=== PATIENT | female | born 1975 | race Hispanic/Latino ===

== ENCOUNTER 2018-01-20 21:42 | Emergency (ER) | payer SELFPAY ==
[2018-01-20 23:04] LABS: Absolute Lymphocytes (CBC) 0.3 K/uL (0.7-4.9); Absolute Monocytes 0.2 K/uL (0.1-1.3); Absolute Neutrophil 5.9 K/uL (1.8-8.0); Basophils % 0.3 % (0-1.3); Eosinophils % 0.2 % (0-4.4); Hematocrit 40.4 % (36.0-45.0); MCH 28.3 pg (27.0-35.0); MCV 84.2 fL (80-100); MPV 8.5 fL (7.6-11.3); Monocytes % 3.5 % (3.3-12.3); RBC Red Blood Cell Count 4.81 M/uL (3.86-4.86)
[2018-01-20 23:12] LABS: Protime INR 1.04
[2018-01-20 23:23] LABS: Bicarbonate 26 mEq/L (21-31); Glucose Level 147 mg/dL (65-120); Sodium Level 136 mEq/L (135-145)
[2018-01-20 23:29] LABS: ALT/SGPT 77 IU/L (10-60); AST/SGOT 47 IU/L (10-42); Albumin 3.8 g/dL (3.2-5.5); Alkaline Phosphatase 151 IU/L (42-121); BUN Blood Urea Nitrogen 11 mg/dL (6-20); Bilirubin Direct < 0.1 mg/dL (0-0.2); Bilirubin Total 0.3 mg/dL (0.3-1.2); Creatine Phosphokinase 154 IU/L (22-269); Magnesium 1.9 mg/dL (1.8-2.5)
[2018-01-20 23:30] LABS: CKMB Creatine Kinase MB 0.4 ng/ml (0.3-4.0)
--- NOTE | 2018-01-21 00:15 | ER ---
Nurse's Notes [facility] Name: Grace Holder Age: 42 yrs Sex: Female : 1975 Arrival Date: 01/20/2018 Time: 21:45 Bed 30 Private MD: Diagnosis: Myalgia Presentation: 01/20 21:56 Presenting complaint: Patient states: hand cramps, vomiting, diarrhea started today. pt ak1 stated she was seen in ER last week given zpack and prednisone that she has not finished yet. pt PCP is in [facility]. Transition of care: patient was not received from another setting of care. Onset of symptoms was January 20, 2018. Care prior to arrival: None. 21:56 Method Of Arrival: Wheelchair ak1 21:56 Acuity: IRVIN 3 ak1 Triage Assessment: 21:57 General: Appears uncomfortable. ak1 21:59 General: Behavior is calm, cooperative. ak1 21:59 Pain: Denies pain. 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 - Social history:: Smoking status: Patient/guardian denies using tobacco. Screenin:58 Abuse screen: Denies threats or abuse. Denies injuries from another. Nutritional ak1 screening: No deficits noted. Tuberculosis screening: No symptoms or risk factors identified. Fall Risk None identified. Assessment: 22:15 General: Appears in no apparent distress. Behavior is calm, cooperative, appropriate lk1 for age. Pain: Denies pain. Neuro: Level of Consciousness is awake, alert, obeys commands, Oriented to person, place, time, situation. Cardiovascular: Capillary refill is brisk Patient's skin is warm and dry. Respiratory: Airway is patent Respiratory effort is even, unlabored, Respiratory pattern is regular, symmetrical. GI: Reports diarrhea, nausea, vomiting. : No signs and/or symptoms were reported regarding the genitourinary system. EENT: No signs and/or symptoms were reported regarding the EENT system. Derm: No signs and/or symptoms reported regarding the dermatologic system. Musculoskeletal: Swelling absent Reports cramping in hands. Vital Signs: 21:57 BP 112 / 79; Pulse 108; Resp 20; Temp 98.1; Pulse Ox 97% on R/A; Weight 69.85 kg (R); ak1 Height 5 ft. 2 in. (157.48 cm) (R); Pain 0/10; 22:30 BP 109 / 81; Pulse 95; Resp 15; Pulse Ox 100% on R/A; lk1 23:30 BP 101 / 69; Pulse 94; Resp 16; Pulse Ox 100% on R/A; Pain 0/10; lk1 01/21 00:30 BP 105 / 82; Pulse 94; Resp 16; Pulse Ox 98% on R/A; lk1 01/20 21:57 Body Mass Index 28.17 (69.85 kg, 157.48 cm) ak1 ED Course: 01/20 21:45 Patient arrived in ED. es 21:57 Triage completed. ak1 21:57 Arm band placed on Patient placed in an exam room, on a stretcher, on pulse oximetry, ak1 Patient notified of wait time. 21:58 Patient has correct armband on for positive identification. Bed in low position. Call ak1 light in reach. Side rails up X 1. Adult w/ patient. Pulse ox on. NIBP on. 22:06 Rojas Hartmann MD is Attending Physician. tw4 22:35 Radha Bernal, LEVY is Primary Nurse. lk1 22:50 EKG done, by ED staff, reviewed by Rojas Hartmann MD. 3 22:55 Initial lab(s) drawn, by tn, sent to lab. Inserted saline lock: 20 gauge in right dh3 antecubital area, using aseptic technique. Blood collected. 23:53 X-ray completed. Portable x-ray completed in exam room. Patient tolerated procedure kw well. 23:54 Chest Single View XRAY In Process Unspecified. EDMS 01/21 00:51 No provider procedures requiring assistance completed. Patient did not have IV access lk1 during this emergency room visit. Administered Medications: No medications were administered Outcome: 00:14 Discharge ordered by . tw4 00:51 Discharged to home ambulatory, with significant other. lk1 00:51 Condition: good 00:51 Discharge instructions given to patient, significant other, Instructed on discharge instructions, follow up and referral plans. medication usage, safety practices, Demonstrated understanding of instructions, follow-up care, medications, Prescriptions given X 1. 00:53 Patient left the ED. lk1 Signatures: Dispatcher [employer] EDLinda Han Felicia, RN RN Meenakshi Remy Amber RN RN aga1 Radha Bernal RN RN lk1 Maddie Sharma counts include 234 beds at the [facility] Rojas Hartmann MD MD tw4
--- NOTE | 2018-01-21 00:15 | EDPHYS ---
Physician Documentation [facility] Name: Grace Holder Age: 42 yrs Sex: Female : 1975 Arrival Date: 01/20/2018 Time: 21:45 Bed 30 Private MD: ED Physician Rojas Hartmann HPI: 01/20 23:42 This 42 yrs old Female presents to ER via Wheelchair with complaints of tw4 SICK,DIFFICULTY BREATHING. 23:42 pt states that her muscles ache. Onset: The symptoms/episode began/occurred today. tw4 Severity of symptoms: At their worst the symptoms were moderate in the emergency department the symptoms have improved. The patient has not experienced similar symptoms in the past. 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 - Social history:: Smoking status: Patient/guardian denies using tobacco. ROS: 23:42 Constitutional: Negative for fever, chills, and weight loss, Cardiovascular: Negative tw4 for chest pain, palpitations, and edema, Abdomen/GI: Negative for abdominal pain, nausea, vomiting, diarrhea, and constipation, Back: Negative for injury and pain, MS/Extremity: Negative for injury and deformity, Skin: Negative for injury, rash, and discoloration. 23:42 Respiratory: Positive for cough, shortness of breath, wheezing. Exam: 23:42 Constitutional: This is a well developed, well nourished patient who is awake, alert, tw4 and in no acute distress. Head/Face: Normocephalic, atraumatic. Chest/axilla: Normal chest wall appearance and motion. Nontender with no deformity. No lesions are appreciated. Cardiovascular: Regular rate and rhythm with a normal S1 and S2. No gallops, murmurs, or rubs. Normal PMI, no JVD. No pulse deficits. Respiratory: Lungs have equal breath sounds bilaterally, clear to auscultation and percussion. No rales, rhonchi or wheezes noted. No increased work of breathing, no retractions or nasal flaring. Abdomen/GI: Soft, non-tender, with normal bowel sounds. No distension or tympany. No guarding or rebound. No evidence of tenderness throughout. Back: No spinal tenderness. No costovertebral tenderness. Full range of motion. MS/ Extremity: Pulses equal, no cyanosis. Neurovascular intact. Full, normal range of motion. Neuro: Awake and alert, GCS 15, oriented to person, place, time, and situation. Cranial nerves II-XII grossly intact. Motor strength 5/5 in all extremities. Sensory grossly intact. Cerebellar exam normal. Normal gait. Vital Signs: 21:57 BP 112 / 79; Pulse 108; Resp 20; Temp 98.1; Pulse Ox 97% on R/A; Weight 69.85 kg (R); ak1 Height 5 ft. 2 in. (157.48 cm) (R); Pain 0/10; 22:30 BP 109 / 81; Pulse 95; Resp 15; Pulse Ox 100% on R/A; lk1 23:30 BP 101 / 69; Pulse 94; Resp 16; Pulse Ox 100% on R/A; Pain 0/10; lk1 01/21 00:30 BP 105 / 82; Pulse 94; Resp 16; Pulse Ox 98% on R/A; lk1 01/20 21:57 Body Mass Index 28.17 (69.85 kg, 157.48 cm) ak1 MDM: 01/20 22:06 Patient medically screened. tw4 01/21 00:15 Differential Diagnosis flu. Data reviewed: vital signs, nurses notes. Test tw4 interpretation: by ED physician or midlevel provider: plain radiologic studies. Counseling: I had a detailed discussion with the patient and/or guardian regarding: the historical points, exam findings, and any diagnostic results supporting the discharge/admit diagnosis. Special discussion: I discussed with the patient/guardian in detail that at this point there is no indication for admission to the hospital. It is understood, however, that if the symptoms persist or worsen the patient needs to return immediately for re-evaluation. 01/20 22:20 Order name: Basic Metabolic Panel; Complete Time: 23:37 4 01/20 23:37 Interpretation: Normal except: GLUC 147; GFR 79. 01/20 22:20 Order name: BNP; Complete Time: 23:37 01/20 22:20 Order name: CBC with Diff 01/20 23:37 Interpretation: Normal except: MARY% 91.0; LYM% 5.0. 01/20 22:20 Order name: Ckmb; Complete Time: 23:37 01/20 23:38 Interpretation: Abnormal. 01/20 22:20 Order name: CPK; Complete Time: 23:37 01/20 22:20 Order name: LFT's; Complete Time: 23:37 01/20 23:37 Interpretation: Normal except: A/G 0.9; GLOB 4.2; SGOT 47; SGPT 77; ALK 151. 01/20 22:20 Order name: Magnesium; Complete Time: 23:37 01/20 22:20 Order name: PT-INR; Complete Time: 23:37 01/20 22:20 Order name: Ptt, Activated; Complete Time: 23:37 01/20 22:20 Order name: Troponin (emerg Dept Use Only); Complete Time: 23:37 01/20 22:20 Order name: EKG; Complete Time: 22:20 01/20 22:20 Order name: Calcium 01/20 22:20 Order name: Albumin 01/20 23:40 Order name: Chest Single View XRAY 01/20 22:20 Order name: Cardiac monitoring; Complete Time: 22:59 01/20 22:20 Order name: EKG - Nurse/Tech; Complete Time: 22:58 01/20 22:20 Order name: IV Saline Lock; Complete Time: 22:58 01/20 22:20 Order name: Labs collected and sent; Complete Time: 22:59 01/20 22:20 Order name: O2 Per Protocol; Complete Time: 22:59 01/20 22:20 Order name: O2 Sat Monitoring; Complete Time: 22:59 tw4 Administered Medications: No medications were administered Disposition: 01/21/18 00:14 Discharged to Home. Impression: Myalgia. - Condition is Stable. - Discharge Instructions: Musculoskeletal Pain, Muscle Pain, Adult, Pain Without a Known Cause. - Prescriptions for Ibuprofen 800 mg Oral Tablet - take 1 tablet by ORAL route every 8 hours As needed take with food; 30 tablet. - Medication Reconciliation Form, Thank You Letter, Antibiotic Education, Prescription Opioid Use form. - Follow up: Private Physician; When: As needed; Reason: Recheck today's complaints, Continuance of care, Re-evaluation by your physician. - Problem is new. - Symptoms have improved. Signatures: Dispatcher [employer] EDCT Jaymie Bocanegra RN RN fc Ania Reilly RN RN ak1 Radha Bernal RN RN lk1 Rojas Hartmann MD MD tw4
[2018-01-21 01:16] LABS: Blood Morphology Comment NOT SEEN (NOT SEEN); Platelet Estimate ADEQ; Urine White Blood Cell Casts OK
--- NOTE | 2018-01-21 06:28 | EKG ---
Test Date: 2018-01-20 Test Time: 22:41:20 Systems Support Specialist: MORA MEASUREMENT RESULTS: Intervals: Rate: 97 ID: [id number] QRSD: 70 QT: 342 QTc: 434 [place]: P: 50 ID: [id number] QRS: 57 T: 73 INTERPRETIVE STATEMENTS: Normal sinus rhythm Normal ECG No previous ECG available for comparison Electronically Signed On 01-21-18 06:28:09 CDT by Harrison Ferguson
--- NOTE | 2018-01-21 08:50 | RAD REPORT ---
EXAM DESCRIPTION: Armando Single View01/20/2018 11:56 pm CLINICAL HISTORY: Chest pain COMPARISON: December 2017 FINDINGS: Mild opacities within the upper lobes appear unchanged. The remainder of the lungs appear clear of acute infiltrate. The heart is normal size IMPRESSION: Mild apical opacities within the upper lobes are unchanged which may represent pneumonia or atelectasis
== END 2018-01-21 00:53 | disposition home or self-care (01) ==
LOC: ER 21:42
DX: M79.1 Myalgia (principal); E03.9 Hypothyroidism, unspecified; Z85.850 Personal history of malignant neoplasm of thyroid
CPT/HCPCS: 36415; 71045; 80048; 80076; 82550; 82553; 83735; 83880; 84484; 85025; 85610; 85730; 93005; 99284

== ENCOUNTER 2018-07-15 04:37 | Observation (INO) | payer SELFPAY ==
[2018-07-15] MEDS ORDERED: MORPHINE 4 MG/ML SYR ONE (05:31)
[2018-07-15] MEDS ORDERED: NA CHLORIDE 0.9% 1,000 ML ONE (05:31)
[2018-07-15] MEDS ORDERED: FAMOTIDINE 20 MG/2 ML VIAL IV ONE (05:31)
[2018-07-15] MEDS ORDERED: ONDANSETRON 4 MG/2 ML VIAL ONE (05:31)
[2018-07-15 05:33] LABS: Absolute Lymphocytes (CBC) 1.6 K/uL (0.7-4.9); Absolute Monocytes 0.5 K/uL (0.1-1.3); Absolute Neutrophil 4.7 K/uL (1.8-8.0); Basophils % 0.7 % (0-1.3); Eosinophils % 3.9 % (0-4.4); Hematocrit 40.4 % (36.0-45.0); Lymphocytes % 22.9 % (15.3-44.8); MCH 29.2 pg (27.0-35.0); MCV 84.8 fL (80-100); Monocytes % 6.7 % (3.3-12.3); RBC Red Blood Cell Count 4.76 M/uL (3.86-4.86)
[2018-07-15 05:34] LABS: Protime INR 0.97
[2018-07-15 05:53] LABS: ALT/SGPT 28 U/L (12-78); AST/SGOT 19 U/L (15-37); Albumin 3.4 g/dL (3.4-5.0); Alkaline Phosphatase 94 U/L (45-117); BUN Blood Urea Nitrogen 12 mg/dL (7-18); Bicarbonate 24 mmol/L (21-32); Bilirubin Direct 0.1 mg/dL (0-0.2); Bilirubin Total 0.3 mg/dL (0.2-1.0); Glucose Level 102 mg/dL (74-106); Lipase 291 U/L (73-393); Magnesium 1.9 mg/dL (1.8-2.4); NT PRO-BNP 55 pg/mL (<125); Potassium 3.6 mmol/L (3.5-5.1); Protein, Total 7.4 g/dL (6.4-8.2); Sodium Level 141 mmol/L (136-145); Troponin (Emerg Dept Use Only) < 0.02 ng/mL (0.0-0.045)
[2018-07-15] MEDS ORDERED: CALCIUM GLUCONATE 1 GM IVPB 1 GM/50 ML BAG IV ONE ×2 (06:23→21:15)
[2018-07-15] MEDS ORDERED: NA CHLORIDE 0.9% 100 ML IV ONE (06:28)
--- NOTE | 2018-07-15 06:40 | EKG ---
Test Date: 2018-07-15 Test Time: 05:27:09 Case Finisher: COLEEN MEASUREMENT RESULTS: Intervals: Rate: 65 [place]: 128 QRSD: 70 QT: 434 QTc: 451 [place]: P: 12 [place]: 128 QRS: 53 T: 70 INTERPRETIVE STATEMENTS: Normal sinus rhythm Low voltage QRS Borderline ECG Compared to ECG 01/20/2018 22:41:20 Low QRS voltage now present Electronically Signed On 07-15-18 06:40:20 CDT by Harrison Ferguson
--- NOTE | 2018-07-15 07:09 | EDPHYS ---
Physician Documentation [facility] Name: Grace Holder Age: 43 yrs Sex: Female : 1975 Arrival Date: 07/15/2018 Time: 04:38 Bed 16 Private MD: ED Physician Keanu Willingham HPI: 07/15 04:57 This 43 yrs old Female presents to ER via Unassigned with complaints of ramón Shortness Of Breath. 04:58 This 43 yrs old Female presents to ER via Ambulatory with complaints of ramón Shortness Of Breath. 04:58 The patient has shortness of breath at rest. Onset: The symptoms/episode began/occurred ramón just prior to arrival, this morning. Duration: The symptoms are continuous, and are unchanged since they started. The patient's shortness of breath has no apparent modifying factors. Associated signs and symptoms: The patient has no apparent associated signs or symptoms. Severity of symptoms: At their worst the symptoms were moderate. The patient has not experienced similar symptoms in the past. 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 - Social history:: Smoking status: Patient/guardian denies using tobacco. - Ebola Screening: : No symptoms or risks identified at this time. ROS: 05:01 Constitutional: Negative for fever, chills, and weight loss, Eyes: Negative for injury, ramón pain, redness, and discharge, ENT: Negative for injury, pain, and discharge, Neck: Negative for injury, pain, and swelling, Cardiovascular: Negative for chest pain, palpitations, and edema, Abdomen/GI: Negative for abdominal pain, nausea, vomiting, diarrhea, and constipation, : Negative for injury, bleeding, discharge, and swelling, MS/Extremity: Negative for injury and deformity, Skin: Negative for injury, rash, and discoloration, Neuro: Negative for headache, weakness, numbness, tingling, and seizure, Psych: Negative for depression, anxiety, suicide ideation, homicidal ideation, and hallucinations, Allergy/Immunology: Negative for hives, rash, and allergies, Endocrine: Negative for neck swelling, polydipsia, polyuria, polyphagia, and marked weight changes, Hematologic/Lymphatic: Negative for swollen nodes, abnormal bleeding, and unusual bruising. 05:01 Respiratory: Positive for cough, shortness of breath. 05:01 Back: Positive for pain with movement. Exam: 05:01 Constitutional: This is a well developed, well nourished patient who is awake, alert, ramón and in no acute distress. Head/Face: Normocephalic, atraumatic. Eyes: Pupils equal round and reactive to light, extra-ocular motions intact. Lids and lashes normal. Conjunctiva and sclera are non-icteric and not injected. Cornea within normal limits. Periorbital areas with no swelling, redness, or edema. ENT: Nares patent. No nasal discharge, no septal abnormalities noted. Tympanic membranes are normal and external auditory canals are clear. Oropharynx with no redness, swelling, or masses, exudates, or evidence of obstruction, uvula midline. Mucous membranes moist. Neck: Trachea midline, no thyromegaly or masses palpated, and no cervical lymphadenopathy. Supple, full range of motion without nuchal rigidity, or vertebral point tenderness. No Meningismus. Chest/axilla: Normal chest wall appearance and motion. Nontender with no deformity. No lesions are appreciated. Cardiovascular: Regular rate and rhythm with a normal S1 and S2. No gallops, murmurs, or rubs. Normal PMI, no JVD. No pulse deficits. Respiratory: Lungs have equal breath sounds bilaterally, clear to auscultation and percussion. No rales, rhonchi or wheezes noted. No increased work of breathing, no retractions or nasal flaring. Abdomen/GI: Soft, non-tender, with normal bowel sounds. No distension or tympany. No guarding or rebound. No evidence of tenderness throughout. Back: No spinal tenderness. No costovertebral tenderness. Full range of motion. Skin: Warm, dry with normal turgor. Normal color with no rashes, no lesions, and no evidence of cellulitis. MS/ Extremity: Pulses equal, no cyanosis. Neurovascular intact. Full, normal range of motion. Neuro: Awake and alert, GCS 15, oriented to person, place, time, and situation. Cranial nerves II-XII grossly intact. Motor strength 5/5 in all extremities. Sensory grossly intact. Cerebellar exam normal. Normal gait. Psych: Awake, alert, with orientation to person, place and time. Behavior, mood, and affect are within normal limits. 05:01 Musculoskeletal/extremity: DVT Exam: No signs of deep vein thrombosis. no pain, no swelling, no tenderness, negative Homans' sign noted on exam, no appreciated bluish discoloration, no erythema, no increased warmth. Vital Signs: 04:56 BP 136 / 69; Pulse 77; Resp 20; Temp 98.5(O); Pulse Ox 100% on R/A; Weight 72.57 kg; lp1 Height 5 ft. 2 in. (157.48 cm); Pain 8/10; 06:02 BP 124 / 73; Pulse 60; Resp 18; Pulse Ox 100% on R/A; jb4 06:53 BP 110 / 73; Pulse 68; Resp 15; Pulse Ox 100% ; jb4 08:00 BP 118 / 72; Pulse 63; Resp 17; Pulse Ox 100% on R/A; tw2 04:56 Body Mass Index 29.26 (72.57 kg, 157.48 cm) lp1 MDM: 04:43 Patient medically screened. [facility] 05:02 Data reviewed: vital signs, nurses notes, lab test result(s), EKG, radiologic studies, [facility] CT scan, plain films. 07/15 04:57 Order name: Basic Metabolic Panel; Complete Time: 06:00 [facility] 07/15 04:57 Order name: CBC with Diff; Complete Time: 06:00 [facility] 07/15 04:57 Order name: LFT's; Complete Time: 06:00 [facility] 07/15 04:57 Order name: Magnesium; Complete Time: 06:00 [facility] 07/15 04:57 Order name: NT PRO-BNP; Complete Time: 06:00 [facility] 07/15 04:57 Order name: PT-INR; Complete Time: 06:00 [facility] 07/15 04:57 Order name: Troponin (emerg Dept Use Only); Complete Time: 06:00 [facility] 07/15 04:57 Order name: Lipase; Complete Time: 06:00 [facility] 07/15 04:57 Order name: Blood Culture Adult (2) [facility] 07/15 05:02 Order name: TSH; Complete Time: 06:00 [facility] 07/15 06:23 Order name: Urine Dipstick--Ancillary (enter results) ms 07/15 06:24 Order name: Urine --Ancillary (enter results) ms 07/15 07:15 Order name: Basic Metabolic Panel EDMS 07/15 07:15 Order name: Basic Metabolic Panel EDMS 07/15 04:57 Order name: XRAY Chest (1 view) [facility] 07/15 04:57 Order name: EKG; Complete Time: 04:58 [facility] 07/15 04:57 Order name: Cardiac monitoring; Complete Time: 05:21 [facility] 07/15 04:57 Order name: EKG - Nurse/Tech; Complete Time: 05:34 [facility] 07/15 04:57 Order name: IV Saline Lock; Complete Time: 05:21 ramón 07/15 04:57 Order name: Labs collected and sent; Complete Time: 05:22 [facility] 07/15 04:57 Order name: CT Aorta for Dissection [facility] 07/15 07:07 Order name: US Abdomen Limited [facility] 07/15 07:16 Order name: NPO; Complete Time: 07:17 [facility]SC 07/15 04:57 Order name: O2 Per Protocol; Complete Time: 05:21 [facility] 07/15 04:57 Order name: O2 Sat Monitoring; Complete Time: 05:21 [facility] 07/15 04:58 Order name: Urine Dipstick-Ancillary (obtain specimen); Complete Time: 06:22 [facility] 07/15 04:58 Order name: Urine Test (obtain specimen); Complete Time: 06:22 [facility] Administered Medications: 05:38 Drug: Zofran 4 mg Route: IVP; Site: right forearm; jb4 06:00 Follow up: Response: No adverse reaction cc3 06:47 Follow up: Response: No adverse reaction; Vomiting decreased jb4 05:40 Drug: morphine 2 mg Route: IVP; Site: right forearm; jb4 06:45 Follow up: Response: No adverse reaction; Pain is decreased jb4 05:41 Drug: NS 0.9% 1000 ml Route: IV; Rate: 1 bolus; Site: right forearm; jb4 05:41 Drug: Pepcid 20 mg Route: IVP; Site: right forearm; jb4 06:00 Follow up: Response: No adverse reaction cc3 06:43 Follow up: Response: No adverse reaction jb4 05:54 Drug: morphine 2 mg Route: IVP; Site: right forearm; jb4 06:46 Follow up: Response: No adverse reaction; Pain is decreased jb4 06:48 Drug: Calcium Gluconate 1 grams Route: IVPB; Infused Over: 60 mins; Site: right forearm;jb4 07:52 Follow up: Response: No adverse reaction; IV Status: Completed infusion tw2 07:25 Drug: Zosyn 3.375 grams Route: IVPB; Infused Over: 60 mins; Site: right forearm; 08:25 Follow up: Response: No adverse reaction; IV Status: Completed infusion tw2 Disposition: 07/15/18 07:08 Hospitalization ordered by Jose Cuenca for Observation. Preliminary diagnosis are Cholelithiasis, Cholecystitis. - Bed requested for Telemetry/MedSurg (observation). - Status is Observation. tw2 - Condition is Stable. - Problem is new. - Symptoms have improved. UTI on Admission? No Signatures: Dispatcher [employer] EDMS Keanu Willingham MD MD cha Pena, Laura, RN RN lp1 Geovanni Hammer RN LEVY Nandini Espino RN RN tw2 Beto Rodriguez RN RN jb4 Mary Alvarenga cc3 Corrections: (The following items were deleted from the chart) 08:29 07:08 Hospitalization Ordered by Jose Cuenca MD for Observation. Preliminary diagnosis tw2 is Cholelithiasis; Cholecystitis. Bed requested for Telemetry/MedSurg (observation). Status is Observation. Condition is Stable. Problem is new. Symptoms have improved. UTI on Admission? No. ramón
--- NOTE | 2018-07-15 07:09 | ER ---
Nurse's Notes [facility] Name: Grace Holder Age: 43 yrs Sex: Female : 1975 Arrival Date: 07/15/2018 Time: 04:38 Bed 16 Private MD: Diagnosis: Cholelithiasis;Cholecystitis Presentation: 07/15 04:57 Presenting complaint: Patient states: Shortness of breath since 0200; Pain to upper mid lp1 back, pain increased with respiration. Transition of care: patient was not received from another setting of care. Onset of symptoms was July 15, 2018 at 02:00. Risk Assessment: Do you want to hurt yourself or someone else? Patient reports no desire to harm self or others. Initial Sepsis Screen: Does the patient meet any 2 criteria? No. Patient's initial sepsis screen is negative. Does the patient have a suspected source of infection? No. Patient's initial sepsis screen is negative. Care prior to arrival: None. 04:57 Method Of Arrival: Ambulatory lp1 04:57 Acuity: IRVIN 3 lp1 CLINICAL PSYCHOLOGIST LICENSED: 04:56 LMP N/A - Irregular menses lp1 Historical: - Allergies: 04:59 No Known Allergies; lp1 - Home Meds: 04:59 calcitriol 0.5 mcg Oral cap 1 cap once daily [Active]; calcium carbonate 500 mg calcium lp1 (1,250 mg) Oral chew 1000 mg three times a day [Active]; - PMHx: 04:59 Hypothyroidism; THYROID CANCER; lp1 - PSHx: 04:59 Thyroidectomy; parathyroid removal; ; lp1 - Immunization history:: Adult Immunizations up to date. - Social history:: Smoking status: Patient/guardian denies using tobacco. - Ebola Screening: : No symptoms or risks identified at this time. Screenin:01 Abuse screen: Denies threats or abuse. Denies injuries from another. Nutritional lp1 screening: No deficits noted. Tuberculosis screening: No symptoms or risk factors identified. Fall Risk None identified. Assessment: 05:00 General: Appears in no apparent distress. uncomfortable, Behavior is calm, cooperative, jb4 appropriate for age. Pain: Complains of pain in chest Pain radiates to thoracic area and anterior aspect of left shoulder. Neuro: Level of Consciousness is awake, alert, obeys commands, Oriented to person, place, time, situation. Cardiovascular: Heart tones S1 S2 present Patient's skin is warm and dry. Rhythm is sinus rhythm. Respiratory: Airway is patent Respiratory effort is even, unlabored, Respiratory pattern is regular, symmetrical, Breath sounds are clear bilaterally. GI: Reports nausea, vomiting. : No signs and/or symptoms were reported regarding the genitourinary system. EENT: No signs and/or symptoms were reported regarding the EENT system. Derm: Skin is intact, Skin is pink, warm \T\ dry. Musculoskeletal: Circulation, motion, and sensation intact. 06:02 Reassessment: Patient appears in no apparent distress at this time. Patient and/or jb4 family updated on plan of care and expected duration. Pain level reassessed. Patient is alert, oriented x 3, equal unlabored respirations, skin warm/dry/pink. at the bedside. pt resting with eyes closed. appears to be more comfortable. 06:53 Reassessment: Patient appears in no apparent distress at this time. Patient and/or jb4 family updated on plan of care and expected duration. Pain level reassessed. Patient is alert, oriented x 3, equal unlabored respirations, skin warm/dry/pink. Pt is back from CT. 07:33 Reassessment: Patient appears in no apparent distress at this time. Patient and/or tw2 family updated on plan of care and expected duration. Pain level reassessed. Patient is alert, oriented x 3, equal unlabored respirations, skin warm/dry/pink. 07:33 Reassessment: US at bedside at this time. tw2 Vital Signs: 04:56 BP 136 / 69; Pulse 77; Resp 20; Temp 98.5(O); Pulse Ox 100% on R/A; Weight 72.57 kg; lp1 Height 5 ft. 2 in. (157.48 cm); Pain 8/10; 06:02 BP 124 / 73; Pulse 60; Resp 18; Pulse Ox 100% on R/A; jb4 06:53 BP 110 / 73; Pulse 68; Resp 15; Pulse Ox 100% ; jb4 08:00 BP 118 / 72; Pulse 63; Resp 17; Pulse Ox 100% on R/A; tw2 04:56 Body Mass Index 29.26 (72.57 kg, 157.48 cm) lp1 ED Course: 04:38 Patient arrived in ED. ds1 04:43 Keanu Willingham MD is Attending Physician. ramón 04:56 Missed attempt(s): 20 gauge in left antecubital area. Missed attempt(s): 22 gauge in lp1 left forearm. 04:57 Arm band placed on left wrist. lp1 04:58 Triage completed. lp1 05:00 Initial lab(s) drawn, by me, sent to lab. Inserted saline lock: 22 gauge in right jb4 forearm, using aseptic technique. Blood collected. Missed attempt(s): 22 gauge in right forearm. 05:00 Patient has correct armband on for positive identification. Placed in gown. Bed in low jb4 position. Call light in reach. Side rails up X 1. personnel monitor on. Pulse ox on. NIBP on. 05:24 X-ray completed. Portable x-ray completed in exam room. Patient tolerated procedure kw well. 05:25 XRAY Chest (1 view) In Process Unspecified. EDMS 05:30 Radiology exam delayed due to lab results not completed at this time. (HCG) kw1 (BUN/Creatinine). 05:32 Beto Rodriguez, RN is Primary Nurse. jb4 05:46 Radiology exam delayed due to lab results not completed at this time. (HCG) kw1 (BUN/Creatinine). 05:54 Notified ED physician of a critical lab result(s). calcium of 6.9. fc 05:56 Radiology exam delayed due to lab results not completed at this time. (HCG). kw1 06:17 Radiology exam delayed due to test not completed at this time. kw1 06:[address] via wheelchair. kw1 06:41 CT Aorta for Dissection In Process Unspecified. EDMS 06:43 CT completed. Patient tolerated procedure well. Patient moved back from CT. kw1 07:08 Jose Cuenca MD is Hospitalizing Provider. ramón 07:33 Primary Nurse role handed off by Beto Rodriguez, RN tw2 07:33 Nandini Espino RN is Primary Nurse. tw2 07:39 Ultrasound completed. Patient tolerated well. aa4 08:28 No provider procedures requiring assistance completed. Patient admitted, IV remains in tw2 place. Administered Medications: 05:38 Drug: Zofran 4 mg Route: IVP; Site: right forearm; jb4 06:00 Follow up: Response: No adverse reaction cc3 06:47 Follow up: Response: No adverse reaction; Vomiting decreased jb4 05:40 Drug: morphine 2 mg Route: IVP; Site: right forearm; jb4 06:45 Follow up: Response: No adverse reaction; Pain is decreased jb4 05:41 Drug: NS 0.9% 1000 ml Route: IV; Rate: 1 bolus; Site: right forearm; jb4 05:41 Drug: Pepcid 20 mg Route: IVP; Site: right forearm; jb4 06:00 Follow up: Response: No adverse reaction cc3 06:43 Follow up: Response: No adverse reaction jb4 05:54 Drug: morphine 2 mg Route: IVP; Site: right forearm; jb4 06:46 Follow up: Response: No adverse reaction; Pain is decreased jb4 06:48 Drug: Calcium Gluconate 1 grams Route: IVPB; Infused Over: 60 mins; Site: right forearm;jb4 07:52 Follow up: Response: No adverse reaction; IV Status: Completed infusion tw2 07:25 Drug: Zosyn 3.375 grams Route: IVPB; Infused Over: 60 mins; Site: right forearm; hj 08:25 Follow up: Response: No adverse reaction; IV Status: Completed infusion tw2 Outcome: 07:08 Decision to Hospitalize by Provider. ramón 08:28 Admitted to OR accompanied by nurse, via stretcher, Report called to LEVY Mota tw2 08:28 Condition: stable 08:28 Instructed on the need for admit. 08:29 Patient left the ED. tw2 Signatures: Dispatcher [employer] EDKeanu Doe MD MD cha Chretien, Felicia, RN Ciarra Abreu ds1 Abigail Gillespie aa4 Meenakshi Patterson Laura, RN RN lp1 Geovanni Hammer RN RN hj Wise, Tara, RN RN tw2 Beto Rodriguez RN RN jb4 Shena Key kw1 Mary Alvarenga cc3 Corrections: (The following items were deleted from the chart) 06:48 06:44 Response: No adverse reaction; Pain is decreased jb4 jb4
[2018-07-15] MEDS ORDERED: ACETAMINOPHEN 500 MG TAB PO PRN (07:11)
[2018-07-15] MEDS ORDERED: ONDANSETRON 4 MG/2 ML VIAL IV PRN (07:11)
[2018-07-15] MEDS ORDERED: MORPHINE 4 MG/ML SYR IV PRN (07:14)
[2018-07-15] MEDS ORDERED: PIPER/TAZO/NS 3.375gm 3.375 GM/100 ML BAG ONE (07:26)
[2018-07-15] MEDS ORDERED: D5 0.45 NS 1,000 ML IV SCH (08:00)
[2018-07-15] MEDS ORDERED: ONDANSETRON HCL 40 MG/20 ML VIAL ONE (08:25)
[2018-07-15] MEDS ORDERED: MIDAZOLAM HCL 2 MG/2 ML INJ ONE (08:25)
[2018-07-15] MEDS ORDERED: FENTANYL CITR 250 MCG/5 ML ONE (08:25)
[2018-07-15] MEDS ORDERED: PROPOFOL 200 MG/20 ML VIAL IV ONE (08:25)
[2018-07-15] MEDS ORDERED: ROCURONIUM 50 MG/5 ML VIAL IV ONE (08:25)
[2018-07-15] MEDS ORDERED: LIDOCAINE 2% MPF 5 ML VIAL ONE (08:25)
[2018-07-15] MEDS ORDERED: FAMOTIDINE 20 MG/2 ML VIAL IV SCH ×2 (09:00→21:00)
[2018-07-15] MEDS ORDERED: Ringers Lactate 1,000 ML IV ONE ×2 (09:00→10:35)
[2018-07-15 09:09] LABS: Urine Specific Gravity 1.005 (1.005-1.030)
[2018-07-15 09:09] LABS: Urine Blood TRACE (NEG); Urine Glucose NEGATIVE (NEG); Urine Protein NEGATIVE (NEG); Urine Specific Gravity 1.005 (1.005-1.030)
--- NOTE | 2018-07-15 09:12 | RAD REPORT ---
EXAM DESCRIPTION: RAD - Chest Single View - 07/15/2018 5:25 am CLINICAL HISTORY: DYSPNEA Chest pain. COMPARISON: Chest Single View dated 01/20/2018; Chest Pa And Lat (2 Views) dated 12/27/2017 FINDINGS: Portable technique limits examination quality. The lungs are grossly clear. The heart is normal in size. No displaced fractures. IMPRESSION: No acute intrathoracic process suspected.
--- NOTE | 2018-07-15 09:14 | RAD REPORT ---
EXAM DESCRIPTION: CT - Angio Aorta For Dissection - 07/15/2018 6:40 am CLINICAL HISTORY: Chest pain radiating to the back. Chest pain;Dyspnea;Pain COMPARISON: Thorax W/ Con dated 12/27/2017 TECHNIQUE: CT angiography of the aorta was performed with MIPs. All CT scans are performed using dose optimization technique as appropriate and may include automated exposure control or mA/KV adjustment according to patient size. FINDINGS: A left aortic arch is present with normal branching pattern of the great vessels.No acute aortic finding is seen such as aneurysm, penetrating ulcer or dissection. The celiac axis, SMA, KIARRA and renal arteries are widely patent. Small accessory right renal artery. No evidence of pulmonary embolism. Linear scarring is present in both lung apices with mosaic perfusion pattern seen in the lungs sugges ting small airway or small vessel disease. No lobar consolidation typical of bacterial pneumonia. The liver demonstrates no focal mass or biliary dilatation.Large gallstones are present in the gallbl adder.The spleen, pancreas, adrenal glands and kidneys are within normal limits for arterial phase im aging. No bowel obstruction, free fluid or abscess.No pathologic enlarged lymphadenopathy identified. No fracture or worrisome bone lesion seen. IMPRESSION: No acute aortic finding is demonstrated. Cholelithiasis. Mosaic appearance to the lungs often is seen in small airway or small vessel disease.
--- NOTE | 2018-07-15 09:18 | RAD REPORT ---
EXAM DESCRIPTION: US - Abdomen Exam Limited - 07/15/2018 7:43 am CLINICAL HISTORY: ABD PAIN COMPARISON: No comparisons FINDINGS: The gallbladder demonstrates multiple shadowing gallstones. No pericholecystic fluid. Gall bladder wall is upper limit normal measuring 4 mm. The common bile duct is normal measuring 7 mm. The liver demonstrates no findings of intrahepatic biliary dilatation. IMPRESSION: Cholelithiasis.
[2018-07-15] MEDS ORDERED: GLYCOPYRROLATE 0.2 MG/ML SYR ONE (10:38)
[2018-07-15] MEDS ORDERED: KETOROLAC 30 MG/ML INJ ONE (10:38)
[2018-07-15] MEDS ORDERED: NEOSTIGMINE 1 MG/ML -5 ML SYRINGE ONE (10:41)
--- NOTE | 2018-07-15 10:43 | P.OP ---
Sammying Machine Operator: Roberto DE SANTIAGO Preoperative diagnosis: Acute Cholecystitis and Cholelithiasis Postoperative diagnosis: same Primary procedure: Lap Latosha Anesthesia: General Estimated blood loss: min Specimen: gb Findings: as above Complications: None Transferred to: Recovery Room Condition: Good
[2018-07-15] MEDS ORDERED: Mastisol Adhesive Liq ONE (10:52)
[2018-07-15] MEDS ORDERED: HYDROMORPHONE HCL 1 MG/ML INJ IV PRN (11:06)
[2018-07-15] MEDS: Ringers Lactate 1,000 ML IV SCH ×2 (11:06→21:21)
[2018-07-15] MEDS: MEPERIDINE HCL 50 MG/ML AMP ONE ×2 (11:10→11:15)
[2018-07-15] MEDS: ONDANSETRON 4 MG/2 ML VIAL IV PRN ×2 (12:01→19:05)
--- NOTE | 2018-07-15 13:46 | PREOPHP ---
Date of Admission: 07/15/2018 Reason: Back pain. History Of Present Illness: The patient is a 43-year-old female who comes in with acute onset of sev ere back pain associated with nausea and vomiting, in between her shoulder blades. No bloating belch ing or heartburn. No sore throat, runny nose, cough, headaches, or dizziness. No chest pain. No fe billie or chills. No diarrhea or constipation. No blood in her stool. No dysuria or hematuria. Revie w of systems is otherwise unremarkable. She has had pain postprandial in first episode. Review of Systems: Otherwise unremarkable. Past Medical History: History of thyroid cancer and hypothyroidism. Past Surgical History: Thyroidectomy and parathyroidectomy. Medications: Please note, the patient is on Synthroid and calcium supplements. Allergies: NO ALLERGIES. Social History: She denies smoking or drinking. Family History: Negative. Physical Examination: Vital Signs: Stable. She is afebrile. General: She is awake, alert, and oriented x3. Head and Neck: No evidence of icterus. Cranial nerves 2 through 12 are grossly within normal limits . No neck masses. No JVD. Throat clear. Neck is supple. Chest: Clear. Heart: S1, S2. Abdomen: Soft, nondistended. Positive bowel sounds. Minimal tenderness in the right upper quadrant . No peritonitis. Extremity: Adequately perfused. Nontender. Neuro: Nonfocal. Laboratory Data: White count, LFT, amylase, and lipase are within normal limits. Ultrasound shows m ulti-stone cholelithiasis with slight thickening of the gallbladder wall. Common bile duct is within normal limits. Assessment: Acute cholecystitis and cholelithiasis. Plan: Admit, n.p.o., IV fluid, IV antibiotic, to the OR for lap choly, possible open. The patient u nderstands the risks, benefits, and alternatives and agrees to the procedure. /MODL Voice ID: [id number]
[2018-07-15] MEDS ORDERED: INFLUENZA VACCINE (for 3y+) 0.5 ML DOSE IMVAC ONE (14:00)
[2018-07-15] MEDS: HYDROCODONE/APAP 7.5/325 MG TAB PO PRN ×2 (14:09→19:05)
[2018-07-15] MEDS: PIPER/TAZO/NS 3.375gm 3.375 GM/100 ML BAG IVPB SCH (17:00)
[2018-07-15] MEDS: CALCITROL 0.25 MCG CAP PO SCH ×2 (19:00→19:05)
[2018-07-15] MEDS: LEVOTHYROXINE SOD 0.075 MG TAB PO SCH (19:05)
[2018-07-15] MEDS: CALCIUM CARBONATE CHEW 500MG TAB PO SCH ×2 (19:05→21:00)
[2018-07-15] MEDS ORDERED: CALCIUM GLUC 10% INJ 4.65 MEQ in NA CHLORIDE 0.9% 100 ML IV ONE (21:04)
[2018-07-15 21:14] LABS: Albumin 3.3 g/dL (3.4-5.0)
--- NOTE | 2018-07-15 21:17 | P.CNS ---
Date of Consult: 07/15/18 Reason for Consult: Hypocalcemia Requesting Physician: Jose Cuenca Chief Complaint: Left hand cramps History of Present Illness: Ms Holder is a 43-year-old woman with history of thyroid cancer, status post thyroidectomy and parathyroidectomy, on chronic calcium and thyroid hormone replacement, who was admitted today due to acute cholecystitis requiring laparoscopic cholecystectomy. The procedure was successfully done today. I was called because the patient started to complain of left hand cramp, which is known symptoms for hypocalcemia. She was also complaining of back pain. The patient has had same symptoms several times in the past in context of low calcium level. She denied any chest pain or shortness of breath. Allergies No Known Allergies Allergy (Unverified 07/15/18 07:48) Home medications list reviewed: Yes Home Medications: Calcitriol [Rocaltrol] 2 cap PO DAILY 07/15/18 Calcium Carbonate [Calcium] 1,500 mg PO TID 07/15/18 Levothyroxine Sodium [Synthroid] 150 mcg PO DAILY 6PM 07/15/18 - Past Medical/Surgical History Diabetic: No -: Thyroid Cancer -: Hypothyroid -: Thyroidectomy -: Parathyroidectomy -: Section - Social History Alcohol use: Yes CD- Drugs: No Caffeine use: Yes Place of Residence: Home Review of Systems 10-point ROS is otherwise unremarkable Physical Examination Temp Pulse Resp BP Pulse Ox 97.8 F 61 18 118/59 L 98 07/15/18 20:00 07/15/18 20:00 07/15/18 20:00 07/15/18 20:00 07/15/18 20:00 General: Alert, In no apparent distress HEENT: Atraumatic, PERRLA, Mucous membr. moist/pink, EOMI, Sclerae nonicteric Neck: Supple, 2+ carotid pulse no bruit, No LAD, Without JVD or thyroid abnormality Respiratory: Clear to auscultation bilaterally, Normal air movement Cardiovascular: Regular rate/rhythm, Normal S1 S2 Gastrointestinal: Normal bowel sounds, No tenderness Musculoskeletal: No tenderness, Other (Spontaneous Trousseau sign on the left- hand) Integumentary: No rashes Neurological: Normal gait, Normal speech, Normal tone, Normal affect Lymphatics: No axilla or inguinal lymphadenopathy Laboratory Data (last 24 hrs) 07/15/18 05:05: PT 11.4, INR 0.97 07/15/18 05:05: WBC 7.1, Hgb 13.9, Hct 40.4, Plt Count 245 07/15/18 05:05: Sodium 141, Potassium 3.6, BUN 12, Creatinine 0.80, Glucose 102 , Magnesium 1.9, Total Bilirubin 0.3, AST 19, ALT 28, Alkaline Phosphatase 94, Lipase 291 - Problems (1) Hypercalcemia Current Visit: Yes Status: Acute (2) Cholecystitis Current Visit: Yes Status: Acute (3) History of thyroid cancer Current Visit: Yes Status: Acute Conclusions/Impression: Stat laboratory work shows Corrected calcium level is 7.46. Will order IV calcium gluconate infusion. Will monitor her symptoms overnight and check new laboratory work in the morning.
--- NOTE | 2018-07-15 21:18 | OP ---
Date of Procedure: 07/15/2018 Surgeon: Jose Cuenca MD Tool Design Drafter: JONNATHAN Dixon. Preoperative Diagnoses: Acute cholecystitis and cholelithiasis. Postoperative Diagnoses: Acute cholecystitis and cholelithiasis. Procedure Performed: Laparoscopic cholecystectomy. Estimated Blood Loss: Minimal. Specimen: Gallbladder. Findings: As above. Anesthesia: General. Complications: None. Disposition: The patient tolerated the procedure in stable condition and taken to recovery room in g ood general condition. Operative Note: The patient was brought to the OR and placed in supine position. General anesthesia was begun. The patient was prepped and draped in usual sterile fashion. Marcaine 0.5% was infiltra francesca locally. A 15-blade was used to make a 1 cm supraumbilical midline incision. Subcutaneous tissu e was divided. The fascia was identified and divided. A #1 Vicryl stay suture was placed. Peritone al cavity was entered with sharp and blunt dissection. A 12-mm trocar was placed into the peritoneal cavity under direct vision. Pneumoperitoneum was established. Then, three 5-mm trocars placed, one in the epigastrium just to the right of midline and two in the right subcostal region. Laparoscopy revealed acute inflammation of the gallbladder with distention for which gallbladder was aspirated an d then the wall was thickened. Fundus retracted superiorly. Infundibulum was identified and retract ed inferolaterally. Cystic duct and cystic artery were clearly identified with blunt dissection. Cl ips placed. Both structures were divided. Cautery was used to remove the gallbladder from the liver bed. Bleeding on the liver bed was controlled with cautery. Gallbladder was retrieved through the umbilicus via an EndoCatch bag. Right upper quadrant was irrigated. Effluent was clear. No evidenc e of bleeding or bowel injury appreciated or bile leakage appreciated. Subsequently, all trocars wer e removed under direct vision. Stay sutures were tied to each other to close the fascial defect. Chapin bcutaneous wounds were irrigated. Bleeding controlled with cautery. A 3-0 chromic was used to appro ximate the subcutaneous tissue and close the skin. Sterile dressing was applied. The patient was aw akened and taken to recovery room in good general condition. /MODL Voice ID: [id number] Report ID: [id number]
[2018-07-16] MEDS: PIPER/TAZO/NS 3.375gm 3.375 GM/100 ML BAG IVPB SCH ×2 (00:51→09:13)
[2018-07-16] MEDS: LEVOTHYROXINE SOD 0.075 MG TAB PO SCH (06:00)
[2018-07-16 06:04] LABS: Absolute Lymphocytes (CBC) 1.6 K/uL (0.7-4.9); Absolute Monocytes 0.5 K/uL (0.1-1.3); Absolute Neutrophil 5.4 K/uL (1.8-8.0); Basophils % 0.3 % (0-1.3); Eosinophils % 1.1 % (0-4.4); Hematocrit 34.6 % (36.0-45.0); Lymphocytes % 20.5 % (15.3-44.8); MCH 29.4 pg (27.0-35.0); MCV 84.8 fL (80-100); MPV 8.3 fL (7.6-11.3); Monocytes % 7.2 % (3.3-12.3); RBC Red Blood Cell Count 4.08 M/uL (3.86-4.86)
[2018-07-16] MEDS: Ringers Lactate 1,000 ML IV SCH ×2 (06:14→11:06)
[2018-07-16] MEDS: HYDROCODONE/APAP 7.5/325 MG TAB PO PRN ×2 (06:25→13:08)
[2018-07-16 06:30] LABS: BUN Blood Urea Nitrogen 6 mg/dL (7-18); Bicarbonate 26 mmol/L (21-32); Glucose Level 96 mg/dL (74-106); Potassium 3.3 mmol/L (3.5-5.1)
[2018-07-16 06:31] LABS: Sodium Level 141 mmol/L (136-145)
[2018-07-16] MEDS ORDERED: CALCIUM GLUC 10% INJ 4.65 MEQ in NA CHLORIDE 0.9% 100 ML IV ONE (06:51)
[2018-07-16] MEDS: CALCIUM CARBONATE CHEW 500MG TAB PO SCH ×2 (09:00→13:56)
[2018-07-16] MEDS: CALCITROL 0.25 MCG CAP PO SCH (09:00)
--- NOTE | 2018-07-16 13:07 | P.PN ---
Subjective Date of Service: 07/16/18 Primary Care Provider: None Chief Complaint: Left hand cramps Subjective: Improving Physical Examination - Vital Signs Temperature: 98.5 F Blood Pressure: 103/55 Pulse: 70 Respirations: 16 Pulse Ox (%): 96 - Physical Exam General: Alert, In no apparent distress, Oriented x3, Cooperative HEENT: Atraumatic Neck: Supple Respiratory: Clear to auscultation bilaterally, Normal air movement Cardiovascular: Normal pulses, Regular rate/rhythm Gastrointestinal: Normal bowel sounds, Soft and benign, Non-distended, No tenderness, No masses, No rebound, No guarding Musculoskeletal: No erythema, No tenderness, No warmth Integumentary: No tenderness/swelling, No erythema, No warmth, No cyanosis Neurological: Normal speech, Normal strength at 5/5 x4 extr, Normal tone, Normal affect - Studies Medications List Reviewed: Yes Assessment & Plan Discharge Plan: Home Plan to discharge in: 24 Hours Physician Review Additional Text: Impression: Abdominal pain, nausea and vomiting secondary to acute cholecystitis and cholelithiasis status post lap cholecystectomy Hypocalcemia with history of thyroid cancer with history of thyroidectomy and parathyroidectomy on chronic supplementation Plan: Abdominal pain, nausea and vomiting secondary to acute cholecystitis and cholelithiasis status post lap cholecystectomy: Patient is status post lap cholecystectomy. Patient doing well postop. Anticipate discharge in the next 24 hr if okay with surgery. Case discussed at length with surgery. Surgery will discharge if calcium improved Hypocalcemia with history of thyroid cancer with history of thyroidectomy and parathyroidectomy on chronic supplementation: Patient given IV calcium. Will recheck calcium this afternoon. If improved possible discharge today. Patient will need continue with Calcitrol and Caltrate at discharge. Recommendation for the patient to follow up with Endocrinology as an outpatient to further monitor and adjust. Time Spent Managing Pts Care (In Minutes): 55
--- NOTE | 2018-07-17 05:21 | DS ---
Date of Discharge: 07/16/2018 Admitting Diagnoses: Acute cholecystitis and cholelithiasis. Discharge Diagnoses: Acute cholecystitis and cholelithiasis and hypocalcemia secondary to parathyroi dectomy. Procedure Performed: Laparoscopic cholecystectomy. Consultation: Obtained from the hospitalist to manage the hypocalcemia. Hospital Course: The patient is a 43-year-old female who underwent the aforementioned procedure. Po stoperatively, she was doing well. However, she started beginning to have symptoms of hypocalcemia a s she threw up shortly after taking her oral calcium supplements. The hospitalist was consulted. Th e patient was given calcium gluconate and her symptoms over the last 12 hours have markedly improved and now she is able to tolerate the diet as well as calcium tablets and therefore, as the patient is asymptomatic tolerating diet, ambulating, pain controlled on p.o. pain medication, afebrile, the deborah ent will be discharged to home. Disposition: Home. Condition: Stable. Discharge Instructions: Resume home medications and diet. Activities are no heavy lifting. Remove outer dressing in a.m. shower. Keep wound clean and dry. Keep Steri-Strips on all times. Tylenol No. 3 one tablet p.o. q.4 p.r.n. pain. Follow up with PCP and Endocrine for hypocalcemia secondary to parathyroidectomy. Follow up in my office in 1 week. Call for appointment . KENJI/MARIOLA Voice ID: [id number] Report ID: [id number]
== END 2018-07-16 16:04 | disposition home or self-care (01) ==
LOC: ER 04:37 → ERHOLD 07:09 → 2ND 09:45
PROVIDERS: ADMIT Surgery; ATTEND Surgery
PROC: 0FT44ZZ Resection of Gallbladder, Percutaneous Endoscopic Approach (ICD-10-PCS; principal; 2018-07-15 08:45)
DX: K80.00 Calculus of gallbladder with acute cholecystitis without obstruction (principal); E83.51 Hypocalcemia; E89.0 Postprocedural hypothyroidism; Z85.850 Personal history of malignant neoplasm of thyroid
CPT/HCPCS: 36415; 71045; 71275; 74175; 76705; 80048; 80076; 81003; 81025; 82040; 82310; 82330; 83690; 83735; 83880; 83970; 84443; 84484; 85025; 85610; 87040; 87205; 88304; 93005; 96365; 96375; 99285; G0378; J0610; J2175; J2250; J2405; J2543; J2710; J7030; Q9967

== ENCOUNTER 2018-10-30 22:54 | Observation (INO) | payer SELFPAY ==
[2018-10-31] MEDS ORDERED: NA CHLORIDE 0.9% 1,000 ML ONE (00:02)
[2018-10-31 00:13] LABS: Protime INR 0.96
[2018-10-31 00:14] LABS: Absolute Lymphocytes (CBC) 2.2 K/uL (0.7-4.9); Absolute Monocytes 0.7 K/uL (0.1-1.3); Absolute Neutrophil 3.7 K/uL (1.8-8.0); Basophils % 0.5 % (0-1.3); Eosinophils % 6.5 % (0-4.4); Hematocrit 36.3 % (36.0-45.0); Lymphocytes % 31.3 % (15.3-44.8); Monocytes % 9.9 % (3.3-12.3); RBC Red Blood Cell Count 4.39 M/uL (3.86-4.86)
[2018-10-31 00:41] LABS: ALT/SGPT 32 U/L (12-78); AST/SGOT 22 U/L (15-37); Alkaline Phosphatase 96 U/L (45-117); BUN Blood Urea Nitrogen 14 mg/dL (7-18); Bicarbonate 27 mmol/L (21-32); Bilirubin Direct < 0.1 mg/dL (0-0.2); Bilirubin Total 0.1 mg/dL (0.2-1.0); Glucose Level 104 mg/dL (74-106); NT PRO-BNP 77 pg/mL (<125); Potassium 3.5 mmol/L (3.5-5.1); Protein, Total 6.8 g/dL (6.4-8.2); Sodium Level 142 mmol/L (136-145); Troponin (Emerg Dept Use Only) < 0.02 ng/mL (0.0-0.045)
--- NOTE | 2018-10-31 00:50 | ER ---
Nurse's Notes [facility] Name: Grace Holder Age: 43 yrs Sex: Female : 1975 Arrival Date: 10/30/2018 Time: 22:57 Bed 6 Private MD: Diagnosis: Weakness;Hypocalcemia Presentation: 10/30 23:07 Presenting complaint: states: Her calcium and potassium are off and she is ed1 cramping a lot. Transition of care: patient was not received from another setting of care. Onset of symptoms was October 30, 2018. Risk Assessment: Do you want to hurt yourself or someone else? Patient reports no desire to harm self or others. Initial Sepsis Screen: Does the patient meet any 2 criteria? No. Patient's initial sepsis screen is negative. Does the patient have a suspected source of infection? No. Patient's initial sepsis screen is negative. Care prior to arrival: None. 23:07 Method Of Arrival: Ambulatory ed1 23:07 Acuity: IRVIN 3 ed1 Triage Assessment: 23:11 General: Appears uncomfortable, Behavior is calm, cooperative. Pain: Complains of pain ed1 in face and right arm Pain does not radiate. Pain currently is 8 out of 10 on a pain scale. Quality of pain is described as crampy, Pain began 4 hours ago. Is continuous. EENT: No signs and/or symptoms were reported regarding the EENT system. Neuro: Level of Consciousness is awake, alert, obeys commands, Oriented to person, place, time, situation, Pick Up are equal bilaterally Moves all extremities. Full function Gait is steady, Speech is normal, Facial symmetry appears normal, Pupils are PERRLA, Intact Denies weakness blurred vision dizziness, numbness. Cardiovascular: Denies chest pain, Heart tones S1 S2 present Patient's skin is warm and dry. Pulses are all present. Edema is absent. Respiratory: Airway is patent Respiratory effort is even, unlabored, Respiratory pattern is regular, symmetrical, Breath sounds are clear bilaterally. Denies cough, shortness of breath. GI: Abdomen is non-distended, Bowel sounds present X 4 quads. Abd is soft and non tender X 4 quads. Patient currently denies diarrhea, nausea, vomiting. : No signs and/or symptoms were reported regarding the genitourinary system. Derm: Skin is intact, is healthy with good turgor, Skin is dry, Skin is normal, Skin temperature is warm. Musculoskeletal: Circulation, motion, and sensation intact. Range of motion: intact in all extremities. DIRECTOR OF ADMISSIONS: 23:11 LMP 10/30/2018 ed1 Historical: - Allergies: 23:11 No Known Allergies; ed1 - Home Meds: 23:11 calcium carbonate 500 mg calcium (1,250 mg) Oral tab daily [Active]; calcitriol 0.5 mcg ed1 oral cap 2 caps once daily [Active]; Synthroid 150 mcg Oral tab 1 tab once daily [Active]; - PMHx: 23:11 Hypothyroidism; ed1 - PSHx: 23:11 Thyroidectomy; parathyroid removal; ; Cholecystectomy; ed1 - Immunization history:: Adult Immunizations unknown, Flu vaccine is not up to date. It has been more than one year since last vaccine. - Social history:: Smoking status: Patient/guardian denies using tobacco. - Ebola Screening: : Patient negative for fever greater than or equal to 101.5 degrees Fahrenheit, and additional compatible Ebola Virus Disease symptoms Patient denies exposure to infectious person Patient denies travel to an Ebola-affected area in the 21 days before illness onset No symptoms or risks identified at this time. - Family history:: not pertinent. Screenin:15 Abuse screen: Denies threats or abuse. Denies injuries from another. Nutritional ed1 screening: No deficits noted. Tuberculosis screening: No symptoms or risk factors identified. Fall Risk None identified. Assessment: 23:15 Reassessment: See triage assessment. ed1 10/31 00:30 Reassessment: Patient appears in no apparent distress at this time. Patient and/or ed1 family updated on plan of care and expected duration. Pain level reassessed. Patient is alert, oriented x 3, equal unlabored respirations, skin warm/dry/pink. Patient states symptoms have not improved. 02:26 Reassessment: Patient appears in no apparent distress at this time. Patient and/or ed1 family updated on plan of care and expected duration. Pain level reassessed. Patient is alert, oriented x 3, equal unlabored respirations, skin warm/dry/pink. Patient denies pain at this time. Patient states feeling better. Patient states symptoms have improved. Vital Signs: 10/30 23:11 BP 109 / 69; Pulse 87; Resp 19; Temp 98.4(O); Pulse Ox 99% on R/A; Weight 72.57 kg; ed1 Height 5 ft. 2 in. (157.48 cm); Pain 8/10; 10/31 00:30 BP 114 / 71; Pulse 75; Resp 15; Pulse Ox 100% on R/A; Pain 8/10; ed1 02:26 BP 107 / 69; Pulse 61; Resp 15; Pulse Ox 99% on R/A; Pain 0/10; ed1 10/30 23:11 Body Mass Index 29.26 (72.57 kg, 157.48 cm) ed1 ED Course: 10/30 22:57 Patient arrived in ED. al2 23:07 Izabel Chau, LEVY is Primary Nurse. ed1 23:08 Triage completed. ed1 23:11 Keanu Willingham MD is Attending Physician. ramón 23:11 Arm band placed on left wrist. ed1 23:15 Patient has correct armband on for positive identification. Placed in gown. Bed in low ed1 position. Call light in reach. Side rails up X 1. Adult w/ patient. bus monitor on. Pulse ox on. NIBP on. 23:54 Inserted saline lock: 22 gauge in left upper arm, using aseptic technique. Blood ea collected. 10/31 00:47 Christopher Arrieta MD is Hospitalizing Provider. ramón 01:20 X-ray completed. Portable x-ray completed in exam room. Patient tolerated procedure kw well. 01:22 Chest Single View In Process Unspecified. EDMS 02:44 No provider procedures requiring assistance completed. Patient admitted, IV remains in ed1 place. intact, No redness/swelling at site. Administered Medications: 10/30 23:55 Drug: NS 0.9% 500 ml Route: IV; Rate: bolus; Site: left antecubital; ed1 10/31 00:31 Follow up: IV Status: Completed infusion; IV Intake: 500ml ed1 00:31 Drug: NS 0.9% 1000 ml Route: IV; Rate: 125 ml/hr; Site: left antecubital; ed1 02:33 Follow up: IV Status: Infusion continued upon admission ed1 01:21 Drug: Calcium Gluconate 1 grams Route: IVPB; Infused Over: 60 mins; Site: left ed1 antecubital; 02:32 Follow up: Response: No adverse reaction; IV Status: Completed infusion; IV Intake: [id number] 01:21 Drug: Calcium Carbonate 500 mg 2 tablet Route: PO; ed1 02:32 Follow up: Response: No adverse reaction ed1 Intake: 00:31 IV: 500ml; Total: 500ml. ed1 02:32 IV: 50ml; Total: 550ml. ed1 Outcome: 00:49 Decision to Hospitalize by Provider. ramón 02:44 Admitted to Tele accompanied by tech, via wheelchair, room 406, Report called to ed1 LEVY Shultz 02:44 Condition: stable 02:44 Discharge instructions given to patient, Instructed on the need for admit, Demonstrated understanding of instructions. 02:46 Patient left the ED. ed1 Signatures: Dispatcher [employer] Keanu Danielson MD MD cha Riggs, Erika RN RN ed1 Meenakshi Patterson Elena, RN RN ea Love, Angelica al2
--- NOTE | 2018-10-31 00:50 | EDPHYS ---
Physician Documentation [facility] Name: Grace Holder Age: 43 yrs Sex: Female : 1975 Arrival Date: 10/30/2018 Time: 22:57 Bed 6 Private MD: ED Physician Keanu Willingham HPI: 10/30 23:38 This 43 yrs old Female presents to ER via Ambulatory with complaints of ramón Numbness Of Face, R ARM NUMBNESS. 23:38 The patient's problem is reported as paresthesias, weakness, in the right upper ramón extremity, in the left upper extremity, that is generalized. Onset: The symptoms/episode began/occurred 2 day(s) ago. The symptoms are alleviated by nothing. The symptoms are aggravated by nothing. Associated signs and symptoms: The patient has no apparent associated signs or symptoms. Severity of symptoms: At their worst the symptoms were moderate in the emergency department the symptoms are unchanged. LITERACY CONSULTANT: 23:11 LMP 10/30/2018 ed1 Historical: - Allergies: 23:11 No Known Allergies; ed1 - Home Meds: 23:11 calcium carbonate 500 mg calcium (1,250 mg) Oral tab daily [Active]; calcitriol 0.5 mcg ed1 oral cap 2 caps once daily [Active]; Synthroid 150 mcg Oral tab 1 tab once daily [Active]; - PMHx: 23:11 Hypothyroidism; ed1 - PSHx: 23:11 Thyroidectomy; parathyroid removal; ; Cholecystectomy; ed1 - Immunization history:: Adult Immunizations unknown, Flu vaccine is not up to date. It has been more than one year since last vaccine. - Social history:: Smoking status: Patient/guardian denies using tobacco. - Ebola Screening: : Patient negative for fever greater than or equal to 101.5 degrees Fahrenheit, and additional compatible Ebola Virus Disease symptoms Patient denies exposure to infectious person Patient denies travel to an Ebola-affected area in the 21 days before illness onset No symptoms or risks identified at this time. - Family history:: not pertinent. ROS: 23:38 Constitutional: Negative for fever, chills, and weight loss, Eyes: Negative for injury, ramón pain, redness, and discharge, ENT: Negative for injury, pain, and discharge, Neck: Negative for injury, pain, and swelling, Cardiovascular: Negative for chest pain, palpitations, and edema, Respiratory: Negative for shortness of breath, cough, wheezing, and pleuritic chest pain, Abdomen/GI: Negative for abdominal pain, nausea, vomiting, diarrhea, and constipation, Back: Negative for injury and pain, : Negative for injury, bleeding, discharge, and swelling, MS/Extremity: Negative for injury and deformity, Skin: Negative for injury, rash, and discoloration, Neuro: Negative for headache, weakness, numbness, tingling, and seizure. Exam: 23:38 Constitutional: This is a well developed, well nourished patient who is awake, alert, ramón and in no acute distress. Head/Face: Normocephalic, atraumatic. Eyes: Pupils equal round and reactive to light, extra-ocular motions intact. Lids and lashes normal. Conjunctiva and sclera are non-icteric and not injected. Cornea within normal limits. Periorbital areas with no swelling, redness, or edema. ENT: Nares patent. No nasal discharge, no septal abnormalities noted. Tympanic membranes are normal and external auditory canals are clear. Oropharynx with no redness, swelling, or masses, exudates, or evidence of obstruction, uvula midline. Mucous membranes moist. Neck: Trachea midline, no thyromegaly or masses palpated, and no cervical lymphadenopathy. Supple, full range of motion without nuchal rigidity, or vertebral point tenderness. No Meningismus. Chest/axilla: Normal chest wall appearance and motion. Nontender with no deformity. No lesions are appreciated. Cardiovascular: Regular rate and rhythm with a normal S1 and S2. No gallops, murmurs, or rubs. Normal PMI, no JVD. No pulse deficits. Respiratory: Lungs have equal breath sounds bilaterally, clear to auscultation and percussion. No rales, rhonchi or wheezes noted. No increased work of breathing, no retractions or nasal flaring. Abdomen/GI: Soft, non-tender, with normal bowel sounds. No distension or tympany. No guarding or rebound. No evidence of tenderness throughout. Back: No spinal tenderness. No costovertebral tenderness. Full range of motion. Female : Normal external genitalia. Skin: Warm, dry with normal turgor. Normal color with no rashes, no lesions, and no evidence of cellulitis. MS/ Extremity: Pulses equal, no cyanosis. Neurovascular intact. Full, normal range of motion. Neuro: Awake and alert, GCS 15, oriented to person, place, time, and situation. Cranial nerves II-XII grossly intact. Motor strength 5/5 in all extremities. Sensory grossly intact. Cerebellar exam normal. Normal gait. Psych: Awake, alert, with orientation to person, place and time. Behavior, mood, and affect are within normal limits. 23:38 Musculoskeletal/extremity: DVT Exam: No signs of deep vein thrombosis. no pain, no swelling, no tenderness, negative Homans' sign noted on exam, no appreciated bluish discoloration, no erythema, no increased warmth. Vital Signs: 23:11 BP 109 / 69; Pulse 87; Resp 19; Temp 98.4(O); Pulse Ox 99% on R/A; Weight 72.57 kg; ed1 Height 5 ft. 2 in. (157.48 cm); Pain 8/10; 10/31 00:30 BP 114 / 71; Pulse 75; Resp 15; Pulse Ox 100% on R/A; Pain 8/10; ed1 02:26 BP 107 / 69; Pulse 61; Resp 15; Pulse Ox 99% on R/A; Pain 0/10; ed1 10/30 23:11 Body Mass Index 29.26 (72.57 kg, 157.48 cm) ed1 MDM: 10/30 23:11 Patient medically screened. [facility] 23:38 Data reviewed: vital signs, nurses notes, lab test result(s), EKG, radiologic studies, [facility] plain films. 10/31 00:08 Order name: Basic Metabolic Panel [facility] 10/31 00:08 Order name: Liver (Hepatic) Function [facility] 10/31 00:08 Order name: Troponin (Emerg Dept Use Only) [facility] 10/31 00:08 Order name: NT PRO-BNP [facility] 10/30 23:38 Order name: XRAY Chest (1 view) [facility] 10/30 23:38 Order name: Cardiac monitoring; Complete Time: 23:50 [facility] 10/30 23:38 Order name: EKG - Nurse/Tech; Complete Time: 23:50 [facility] 10/31 00:08 Order name: Magnesium [facility] 10/31 00:08 Order name: Thyroid Stimulating Hormone [facility] 10/31 00:08 Order name: PTH Intact [facility] 10/31 00:08 Order name: CBC with Automated Diff [facility] 10/31 00:08 Order name: Protime (+INR); Complete Time: 00:23 [facility] 10/31 00:48 Order name: Chest Single View [facility] 10/30 23:38 Order name: IV Saline Lock; Complete Time: 23:55 [facility] 10/30 23:38 Order name: Labs collected and sent; Complete Time: 23:55 [facility] 10/30 23:38 Order name: O2 Per Protocol; Complete Time: 23:50 [facility] 10/30 23:38 Order name: O2 Sat Monitoring; Complete Time: 23:50 [facility] 10/30 23:38 Order name: Urine Dipstick-Ancillary (obtain specimen); Complete Time: 01:05 [facility] 10/30 23:38 Order name: Urine Test (obtain specimen); Complete Time: 01:05 [facility] Administered Medications: 23:55 Drug: NS 0.9% 500 ml Route: IV; Rate: bolus; Site: left antecubital; ed1 10/31 00:31 Follow up: IV Status: Completed infusion; IV Intake: 500ml ed1 00:31 Drug: NS 0.9% 1000 ml Route: IV; Rate: 125 ml/hr; Site: left antecubital; ed1 02:33 Follow up: IV Status: Infusion continued upon admission ed1 01:21 Drug: Calcium Gluconate 1 grams Route: IVPB; Infused Over: 60 mins; Site: left ed1 antecubital; 02:32 Follow up: Response: No adverse reaction; IV Status: Completed infusion; IV Intake: [id number] 01:21 Drug: Calcium Carbonate 500 mg 2 tablet Route: PO; ed1 02:32 Follow up: Response: No adverse reaction ed1 Disposition: 10/31/18 00:49 Hospitalization ordered by Christopher Arrieta for Observation. Preliminary diagnosis are Weakness, Hypocalcemia. - Bed requested for Telemetry/MedSurg (observation). - Status is Observation. ed1 - Condition is Fair. - Problem is new. - Symptoms have improved. UTI on Admission? No Signatures: Dispatcher [employer] [facility] Keanu Willingham MD MD cha Riggs, Erika, RN RN ed1 Estefany Chavez RN RN cg Corrections: (The following items were deleted from the chart) 02:24 00:49 Hospitalization Ordered by Christopher Arrieta MD for Observation. Preliminary cg diagnosis is Weakness; Hypocalcemia. Bed requested for Telemetry/MedSurg (observation). Status is Observation. Condition is Fair. Problem is new. Symptoms have improved. UTI on Admission? No. [facility] 02:46 02:24 10/31/2018 00:49 Hospitalization Ordered by Christopher Arrieta MD for Observation. ed1 Preliminary diagnosis is Weakness; Hypocalcemia. Bed requested for Telemetry/MedSurg (observation). Status is Observation. Condition is Fair. Problem is new. Symptoms have improved. UTI on Admission? No. cg
[2018-10-31] MEDS ORDERED: CALCIUM CARBONATE 500 MG TAB ONE (01:17)
[2018-10-31] MEDS ORDERED: CALCIUM GLUCONATE 1 GM IVPB 1 GM/50 ML BAG IV ONE (01:17)
[2018-10-31 01:22] LABS: Thyroid Stimulating Hormone 0.524 uIU/mL (0.360-3.740)
[2018-10-31] MEDS ORDERED: ONDANSETRON 4 MG/2 ML VIAL IV PRN (02:10)
[2018-10-31] MEDS ORDERED: ACETAMINOPHEN 500 MG TAB PO PRN (02:10)
[2018-10-31] MEDS ORDERED: MORPHINE 2 MG/ML SYR IV PRN (02:10)
[2018-10-31] MEDS ORDERED: NA CHLORIDE 0.9% 1,000 ML IV SCH (03:00)
--- NOTE | 2018-10-31 06:36 | RAD REPORT ---
EXAM DESCRIPTION: RAD - Chest Single View - 10/31/2018 1:23 am CLINICAL HISTORY: Chest pain, abdominal pain COMPARISON: July 2018 TECHNIQUE: AP portable chest image was obtained 0120 hours . FINDINGS: Lungs are clear. Heart and vasculature are normal. No measurable pleural effusion and no p neumothorax. No acute bony abnormality seen. No acute aortic findings suspected. IMPRESSION: No acute cardiopulmonary process. No significant interval change.
[2018-10-31] MEDS ORDERED: CALCIUM GLUC 10% INJ 9.3 MEQ in NA CHLORIDE 0.9% 100 ML IV ONE ×2 (07:13→12:45)
[2018-10-31] MEDS ORDERED: MORPHINE 4 MG/ML SYR IV PRN (07:17)
[2018-10-31 07:23] LABS: Urine Blood 3+ (NEG); Urine Glucose NEGATIVE (NEG); Urine Protein NEGATIVE (NEG)
--- NOTE | 2018-10-31 07:24 | P.HP ---
Certification for Inpatient Patient admitted to: Observation With expected LOS: <2 Midnights Patient will require the following post-hospital care: None Practitioner: I am a practitioner with admitting privileges, knowledge of patient current condition, hospital course, and medical plan of care. Services: Services provided to patient in accordance with Admission requirements found in Title 42 Section 412.3 of the Code of Federal Regulations Patient History Date of Service: 10/31/18 Reason for admission: Weakness & lethargic History of Present Illness: Patient is a 43-year-old female with a history of parathyroidectomy. She came to the hospital with a diagnosis of hypocalcemia. This happens to her every few months. She takes 4500 mg of calcium plus vitamin-D. She follows up with a physician in [facility]. She has not had her calcium checked in quite a while. In the emergency room her calcium was quite low. Even the corrected calcium still turned out to be on the lower side. This may be 1 of the reasons for her feeling weak and lethargic. She will be admitted to the hospital for further workup. She also has a history of dysphasia. She has difficulty swallowing. Will also get a modified barium swallow study in the morning. Allergies No Known Allergies Allergy (Unverified 07/15/18 07:48) Home Medications: Calcitriol [Rocaltrol] 2 cap PO DAILY 07/15/18 Calcium Carbonate [Calcium] 1,500 mg PO TID 07/15/18 Levothyroxine Sodium [Synthroid] 150 mcg PO DAILY 6PM 07/15/18 Codeine/APAP [Tylenol W/Codeine #3 tab] 1 tab PO Q4HP PRN #40 tab 07/16/18 - Past Medical/Surgical History Has patient received pneumonia vaccine in the past: No Diabetic: No -: Thyroid Cancer -: Hypothyroid -: Thyroidectomy -: Parathyroidectomy -: Section -: Cholecystectomy - Family History Father Notes: no medical hx Mother History Unknown: Yes Notes: Mother when pt was born - Social History Smoking Status: Never smoker Alcohol use: Yes CD- Drugs: No Caffeine use: Yes Place of Residence: Home Review of Systems 10-point ROS is otherwise unremarkable Physical Examination - Vital Signs Temperature: 98 F Blood Pressure: 104/69 Pulse: 69 Respirations: 17 Pulse Ox (%): 99 - Physical Exam General: Alert, In no apparent distress, Oriented x3 HEENT: Atraumatic, PERRLA, Mucous membr. moist/pink, EOMI, Sclerae nonicteric Neck: Supple, 2+ carotid pulse no bruit, No LAD, Without JVD or thyroid abnormality Respiratory: Clear to auscultation bilaterally, Normal air movement Cardiovascular: Regular rate/rhythm, Normal S1 S2, No murmurs Gastrointestinal: Normal bowel sounds, Soft and benign, Non-distended, No tenderness Musculoskeletal: No clubbing, No swelling, No tenderness Integumentary: No rashes Neurological: Normal gait, Normal speech, Normal strength at 5/5 x4 extr, Normal tone, Sensation intact, Cranial nerves 3-12 intact, Normal affect Lymphatics: No axilla or inguinal lymphadenopathy - Studies Laboratory Data (last 24 hrs) 10/30/18 23:48: Sodium 142, Potassium 3.5, BUN 14, Creatinine 0.57, Glucose 104 , Magnesium 2.0, Total Bilirubin 0.1 L, AST 22, ALT 32, Alkaline Phosphatase 96 10/30/18 23:38: PT Cancelled, INR Cancelled 10/30/18 23:38: WBC Cancelled, Hgb Cancelled, Hct Cancelled, Plt Count Cancelled 10/30/18 23:38: Sodium Cancelled, Potassium Cancelled, BUN Cancelled, Creatinine Cancelled, Glucose Cancelled, Magnesium Cancelled, Total Bilirubin Cancelled, AST Cancelled, ALT Cancelled, Alkaline Phosphatase Cancelled Assessment & Plan - Problems (Diagnosis) (1) Hypocalcemia Current Visit: Yes Status: Acute (2) Status post parathyroidectomy Current Visit: Yes Status: Acute (3) History of thyroid cancer Current Visit: No Status: Acute - Plan Plan: 1. Calcium supplementation 2. Peripheral blood smear review to evaluate use of Prolia 3. Ionized calcium is been low in the past. This is most likely still low. Follow-up as an outpatient. 4. Increase supplement to 1500 mg-1 pill every 6 hr 5. Modified barium swallow study because of dysphagia 6. GI and DVT prophylaxis Discharge Plan: Home Plan to discharge in: 48 Hours - Advance Directives Does patient have a Living Will: No Does patient have a Durable POA for Healthcare: No - Code Status/Comfort Care Code Status Assessed: Yes Code Status: Full Code Critical Care: No Time Spent Managing PTS Care (In Minutes): 50
[2018-10-31] MEDS ORDERED: CODEINE 30MG/APAP 300MG TAB PO PRN (07:28)
[2018-10-31] MEDS ORDERED: LEVOTHYROXINE SOD 0.075 MG TAB PO SCH (07:45)
[2018-10-31] MEDS ORDERED: INFLUENZA VACCINE (for 3y+) 0.5 ML DOSE IMVAC ONE (08:00)
--- NOTE | 2018-10-31 08:15 | EKG ---
Test Date: 2018-10-30 Test Time: 23:06:50 Toll Collector Supervisor: YOLI MEASUREMENT RESULTS: Intervals: Rate: 78 NV: 130 QRSD: 72 QT: 408 QTc: 465 [place]: P: 15 NV: 130 QRS: 64 T: 80 INTERPRETIVE STATEMENTS: Normal sinus rhythm Normal ECG Compared to ECG 07/15/2018 05:27:09 No significant changes Electronically Signed On 10-31-18 08:09:04 MAINTENANCE AND ENGINEERING MANAGER by Dixon Segovia
[2018-10-31] MEDS: CALCIUM CARBONATE 500 MG TAB PO SCH ×2 (08:18→13:48)
[2018-10-31] MEDS ORDERED: CALCITROL 0.25 MCG CAP PO SCH (09:00)
--- NOTE | 2018-10-31 09:38 | RAD REPORT ---
EXAM DESCRIPTION: RAD - Barium Swallow Modified - 10/31/2018 9:06 am CLINICAL HISTORY: Dysphagia COMPARISON: None. TECHNIQUE: The patient was given liquid, semi-solid and solid forms of barium. Lateral view fluorosc opic imaging was performed in conjunction with speech pathology service. FINDINGS: Cineloop acquisitions: 17 Fluoro time: 2 minutes 10 seconds Patient had significant esophageal stasis. No aspiration or laryngeal penetration observed. IMPRESSION: Modified barium swallow as detailed above and fully detailed on speech pathology report.
[2018-10-31 10:24] LABS: Hematocrit 38.4 % (36.0-45.0); RBC Red Blood Cell Count 4.58 M/uL (3.86-4.86)
[2018-10-31 10:25] LABS: Absolute Lymphocytes (CBC) 1.5 K/uL (0.7-4.9); Absolute Monocytes 0.3 K/uL (0.1-1.3); Absolute Neutrophil 2.8 K/uL (1.8-8.0); Basophils % 0.7 % (0-1.3); Eosinophils % 6.2 % (0-4.4); Lymphocytes % 30.4 % (15.3-44.8)
[2018-10-31 11:08] LABS: ALT/SGPT 33 U/L (12-78); AST/SGOT 16 U/L (15-37); Albumin 3.1 g/dL (3.4-5.0); Alkaline Phosphatase 97 U/L (45-117); BUN Blood Urea Nitrogen 10 mg/dL (7-18); Bicarbonate 28 mmol/L (21-32); Bilirubin Total 0.2 mg/dL (0.2-1.0); Glucose Level 115 mg/dL (74-106); Magnesium 2.1 mg/dL (1.8-2.4); Phosphorus 4.2 mg/dL (2.5-4.9); Potassium 3.4 mmol/L (3.5-5.1); Protein, Total 7.1 g/dL (6.4-8.2); Sodium Level 142 mmol/L (136-145)
[2018-10-31 11:18] LABS: Blood Morphology Comment NOT SEEN (NOT SEEN); Platelet Estimate ADEQ
== END 2018-10-31 16:39 | disposition home or self-care (01) ==
LOC: ER 22:54 → ERHOLD 10-31 00:49 → 4TH 10-31 02:32
PROVIDERS: ADMIT Hospitalist; ATTEND Hospitalist
DX: E83.51 Hypocalcemia (principal); E03.9 Hypothyroidism, unspecified; Z85.850 Personal history of malignant neoplasm of thyroid; E89.0 Postprocedural hypothyroidism
CPT/HCPCS: 36415; 71045; 74230; 80048; 80053; 80076; 81003; 81025; 82607; 82746; 83735; 83880; 83970; 84100; 84443; 84484; 85025; 85610; 92611; 93005; G0378; J0610; J7030; Q2035

== ENCOUNTER 2019-02-10 05:47 | Emergency (ER) | payer SELFPAY ==
[2019-02-10] MEDS ORDERED: NA CHLORIDE 0.9% 1,000 ML ONE ×2 (06:27→08:25)
[2019-02-10 06:49] LABS: Absolute Lymphocytes (CBC) 0.6 K/uL (0.7-4.9); Absolute Monocytes 0.3 K/uL (0.1-1.3); Absolute Neutrophil 9.7 K/uL (1.8-8.0); Basophils % 0.7 % (0-1.3); Eosinophils % 0.7 % (0-4.4); Hematocrit 39.2 % (36.0-45.0); Lymphocytes % 5.5 % (15.3-44.8); MPV 8.1 fL (7.6-11.3); Monocytes % 2.4 % (3.3-12.3); RBC Red Blood Cell Count 4.68 M/uL (3.86-4.86)
[2019-02-10 06:50] LABS: Protime INR 1.03
[2019-02-10 07:18] LABS: ALT/SGPT 23 U/L (12-78); AST/SGOT 22 U/L (15-37); Albumin 3.4 g/dL (3.4-5.0); Alkaline Phosphatase 96 U/L (45-117); BUN Blood Urea Nitrogen 12 mg/dL (7-18); Bicarbonate 27 mmol/L (21-32); Bilirubin Direct < 0.1 mg/dL (0-0.2); Bilirubin Total 0.4 mg/dL (0.2-1.0); Glucose Level 115 mg/dL (74-106); Magnesium 1.9 mg/dL (1.8-2.4); NT PRO-BNP 97 pg/mL (<125); Potassium 3.4 mmol/L (3.5-5.1); Protein, Total 7.4 g/dL (6.4-8.2); Sodium Level 140 mmol/L (136-145); Troponin (Emerg Dept Use Only) < 0.02 ng/mL (0.0-0.045)
--- NOTE | 2019-02-10 07:25 | ER ---
Nurse's Notes [facility] Name: Grace Holder Age: 43 yrs Sex: Female : 1975 Arrival Date: 02/10/2019 Time: 05:49 Bed 5 Private MD: Diagnosis: Hypocalcemia;Hypokalemia;Muscle spasm;Acute pharyngitis;Fever, unspecified;Vomiting Presentation: 02/10 06:00 Presenting complaint: Patient states: I'm having throat pain 10/10 and hand stiffness rr5 started last night. I had my thyroid removed year 2003 because of thyroid Cancer. I think my calcium is low again. Transition of care: patient was not received from another setting of care. Onset of symptoms was February 09, 2019. Risk Assessment: Do you want to hurt yourself or someone else? Patient reports no desire to harm self or others. Initial Sepsis Screen: Does the patient meet any 2 criteria? No. Patient's initial sepsis screen is negative. Does the patient have a suspected source of infection? No. Patient's initial sepsis screen is negative. Care prior to arrival: None. 06:00 Method Of Arrival: Wheelchair rr5 06:00 Acuity: IRVIN 3 rr5 PERSONAL ATTENDANT: 06:00 LMP 02/10/2019 rr5 Historical: - Allergies: 06:06 No Known Allergies; rr5 - Home Meds: 06:06 calcitriol 0.5 mcg Oral cap 2 caps once daily [Active]; Synthroid 150 mcg Oral tab 1 rr5 tab once daily [Active]; calcium carbonate 500 mg calcium (1,250 mg) Oral chew 1000 mg three times a day [Active]; - PMHx: 06:06 Hypothyroidism; THYROID CANCER; rr5 - PSHx: 06:06 Thyroidectomy; Cholecystectomy; rr5 - Immunization history:: Adult Immunizations up to date. - Social history:: Smoking status: Patient/guardian denies using tobacco, Patient/guardian denies using alcohol, street drugs. - Ebola Screening: : Patient negative for fever greater than or equal to 101.5 degrees Fahrenheit, and additional compatible Ebola Virus Disease symptoms Patient denies exposure to infectious person Patient denies travel to an Ebola-affected area in the 21 days before illness onset. - Family history:: not pertinent. Screenin:07 Abuse screen: Denies threats or abuse. Denies injuries from another. Nutritional rr5 screening: No deficits noted. Tuberculosis screening: No symptoms or risk factors identified. Fall Risk IV access (20 points). Gait- Impaired (20 pts.). Total Ozuna Fall Scale indicates Low Risk Score (25-44 pts). Fall prevention measures have been instituted. Side Rails Up X 2 Placed close to Nursing Station Frequent Obs/Assesments occuring Family Present and informed to notify staff if they need to leave bedside As available Patient and Family Educated on Fall Prevention Program and strategies. Assessment: 06:08 General: Appears in no apparent distress. uncomfortable, Behavior is calm, cooperative, rr5 appropriate for age. Pain: Complains of pain in thhroat Pain does not radiate. Pain currently is 10 out of 10 on a pain scale. Quality of pain is described as aching, Pain began 1 day ago. Is intermittent. Neuro: Level of Consciousness is awake, alert, obeys commands, Oriented to person, place, time, situation, Appropriate for age. Cardiovascular: Capillary refill < 3 seconds Patient's skin is warm and dry. Respiratory: Airway is patent Respiratory effort is even, unlabored, Respiratory pattern is regular, symmetrical. GI: Abdomen is round. : No signs and/or symptoms were reported regarding the genitourinary system. EENT: Throat is clear with gag reflex present, Reports pain in throat Pain is 10 out of 10 on a pain scale. since yesterday. Derm: No signs and/or symptoms reported regarding the dermatologic system. Musculoskeletal: Capillary refill < 3 seconds, hand stiffness noted Reports stiffening of my hand. 06:25 Reassessment: Patient appears in no apparent distress at this time. able to walk going rr5 to restroom without assistance. 06:30 Reassessment: unable to give urine specimen. rr5 07:00 Reassessment: Patient appears in no apparent distress at this time. Patient is alert, rr5 oriented x 3, equal unlabored respirations, skin warm/dry/pink. patient is complaining of throat pain.ED provider aware. 07:10 Reassessment: Patient is alert, oriented x 3, equal unlabored respirations, skin aa5 warm/dry/pink. Awaiting complete lab results, pt notified. . 07:10 Cardiovascular: Rhythm is sinus rhythm. aa5 08:00 Reassessment: Patient is alert, oriented x 3, equal unlabored respirations, skin aa5 warm/dry/pink. Pt assisted to bedside commode, pt's HR increased to 128 bpm, sinus tachycardia on monitor, MD notified. . 08:55 Reassessment: Patient is alert, oriented x 3, equal unlabored respirations, skin aa5 warm/dry/pink. Lab at bedside collecting blood cultures . 09:22 Reassessment: Patient appears in no apparent distress at this time. Patient is alert, sg oriented x 3, equal unlabored respirations, skin warm/dry/pink. 2nd entry level business analyst at bedside for attempt of blood cultures, IV abx and PO abx will be given after Blood culture x2. Vital Signs: 06:00 BP 108 / 74; Pulse 109; Resp 18; Temp 99.3; Pulse Ox 99% on R/A; Weight 73.03 kg; rr5 Height 5 ft. 3 in. (160.02 cm); Pain 10/10; 06:35 BP 102 / 60; Pulse 105; Resp 19; Pulse Ox 99% ; rr5 07:15 BP 96 / 63; Pulse 99; Resp 16 S; Pulse Ox 98% on R/A; aa5 08:50 BP 103 / 68; Pulse 101; Resp 18 S; Temp 100.1(O); Pulse Ox 98% on R/A; Pain 8/10; aa5 09:58 BP 104 / 71; Pulse 98; Resp 17 S; Pulse Ox 99% on R/A; sg 06:00 Body Mass Index 28.52 (73.03 kg, 160.02 cm) rr5 ED Course: 05:49 Patient arrived in ED. am2 05:52 Keanu Willingham MD is Attending Physician. ramón 05:59 Farzad Nazario, LEVY is Primary Nurse. rr5 06:02 Triage completed. rr5 06:07 Arm band placed on. rr5 06:07 Patient has correct armband on for positive identification. Call light in reach. Side rr5 rails up X2. monitor worker on. Pulse ox on. NIBP on. 06:37 Radiology exam delayed due to IV insertion attempt and/or patient not having kw appropriate IV at this time. EKG. 06:40 No provider procedures requiring assistance completed. Inserted saline lock: 20 gauge rr5 in right forearm, using aseptic technique. Blood collected. 07:00 Report given to Janel LOCKETT. rr5 07:17 XRAY Chest (1 view) In Process Unspecified. EDMS 08:27 Ramirez Bryant MD is Referral Physician. ramón 09:02 Primary Nurse role handed off by Farzad Nazario RN sg 09:02 Emir Peace, RN is Primary Nurse. sg 09:05 Report given to Emir Peace RN. aa5 11:44 IV discontinued, intact, No redness/swelling at site. sg Administered Medications: 06:43 Drug: NS 0.9% 500 ml Route: IV; Rate: bolus; Site: right forearm; rr5 07:25 Follow up: IV Status: Completed infusion aa5 07:25 Drug: NS 0.9% 1000 ml Route: IV; Rate: 125 ml/hr; Site: right forearm; aa5 07:40 Drug: Magnesium Oxide 400 mg Route: PO; aa5 08:50 Follow up: Response: No adverse reaction aa5 07:40 Drug: Potassium Effervescent Tablet 50 mEq Route: PO; aa5 08:50 Follow up: Response: No adverse reaction aa5 07:50 Drug: Calcium Gluconate 2 grams Route: IVPB; Infused Over: 60 mins; Site: right forearm;aa5 08:16 Follow up: Response: No adverse reaction aa5 08:12 Drug: NS 0.9% 1000 ml Route: IV; Rate: 1000 ml; Site: right forearm; aa5 09:00 Drug: Calcium Carbonate 500 mg 2 tablet Route: PO; sg 09:15 Drug: Zofran 4 mg Route: IVP; Site: right antecubital; sg 09:20 Drug: Decadron - Dexamethasone 10 mg Route: IVP; Site: right antecubital; sg 10:20 Drug: Tylenol 1000 mg Route: PO; sg 10:20 Drug: Augmentin 875 mg Route: PO; sg 10:22 Not Given (Other Intervention Used): Rocephin - (cefTRIAXone) 1 grams IVPB once over 30 sg mins; (mix in 50 mL NS) 10:22 Drug: Rocephin 1 grams Route: IV; Rate: 1 bolus; Site: right antecubital; sg Outcome: 07:25 Discharge ordered by . [facility] 11:43 Discharged to home ambulatory, with family. sg 11:43 Condition: good 11:43 Discharge instructions given to patient, family, Instructed on discharge instructions, follow up and referral plans. medication usage, safety practices, Demonstrated understanding of instructions, follow-up care, medications, Prescriptions given X 4. 11:45 Patient left the ED. sg Signatures: Dispatcher [employer] EDMS Emir Peace, RN RN sg Keanu Willingham MD MD cha Calderon, Audri RN RN aa5 Meenakshi Patterson Amanda am2 Roque, Raymond RN RN rr5
--- NOTE | 2019-02-10 07:25 | EDPHYS ---
Physician Documentation [facility] Name: Grace Holder Age: 43 yrs Sex: Female : 1975 Arrival Date: 02/10/2019 Time: 05:49 Bed 5 Private MD: ED Physician Keanu Willingham HPI: 02/10 06:10 This 43 yrs old Female presents to ER via Wheelchair with complaints of ramón Hand/feet stiffness. 06:10 hand and legs cramp. Onset: The symptoms/episode began/occurred gradually, 2 day(s) ramón ago. Severity of symptoms: At their worst the symptoms were mild moderate in the emergency department the symptoms are unchanged. The patient has experienced similar episodes in the past, multiple times. SAMPLER RADIOACTIVE WASTE: 06:00 LMP 02/10/2019 rr5 Historical: - Allergies: 06:06 No Known Allergies; rr5 - Home Meds: 06:06 calcitriol 0.5 mcg Oral cap 2 caps once daily [Active]; Synthroid 150 mcg Oral tab 1 rr5 tab once daily [Active]; calcium carbonate 500 mg calcium (1,250 mg) Oral chew 1000 mg three times a day [Active]; - PMHx: 06:06 Hypothyroidism; THYROID CANCER; rr5 - PSHx: 06:06 Thyroidectomy; Cholecystectomy; rr5 - Immunization history:: Adult Immunizations up to date. - Social history:: Smoking status: Patient/guardian denies using tobacco, Patient/guardian denies using alcohol, street drugs. - Ebola Screening: : Patient negative for fever greater than or equal to 101.5 degrees Fahrenheit, and additional compatible Ebola Virus Disease symptoms Patient denies exposure to infectious person Patient denies travel to an Ebola-affected area in the 21 days before illness onset. - Family history:: not pertinent. ROS: 06:10 Constitutional: Negative for fever, chills, and weight loss, Eyes: Negative for injury, ramón pain, redness, and discharge, ENT: Negative for injury, pain, and discharge, Neck: Negative for injury, pain, and swelling, Cardiovascular: Negative for chest pain, palpitations, and edema, Respiratory: Negative for shortness of breath, cough, wheezing, and pleuritic chest pain, Abdomen/GI: Negative for abdominal pain, nausea, vomiting, diarrhea, and constipation, Back: Negative for injury and pain, : Negative for injury, bleeding, discharge, and swelling, Skin: Negative for injury, rash, and discoloration, Psych: Negative for depression, anxiety, suicide ideation, homicidal ideation, and hallucinations, Allergy/Immunology: Negative for hives, rash, and allergies, Endocrine: Negative for neck swelling, polydipsia, polyuria, polyphagia, and marked weight changes, Hematologic/Lymphatic: Negative for swollen nodes, abnormal bleeding, and unusual bruising. 06:10 MS/extremity: Positive for decreased range of motion, pain, of the right hand, left hand, right arm, left arm, right leg and left leg. 06:10 Neuro: Positive for gait disturbance. Exam: 06:10 Constitutional: This is a well developed, well nourished patient who is awake, alert, ramón and in no acute distress. Head/Face: Normocephalic, atraumatic. Eyes: Pupils equal round and reactive to light, extra-ocular motions intact. Lids and lashes normal. Conjunctiva and sclera are non-icteric and not injected. Cornea within normal limits. Periorbital areas with no swelling, redness, or edema. ENT: Nares patent. No nasal discharge, no septal abnormalities noted. Tympanic membranes are normal and external auditory canals are clear. Oropharynx with no redness, swelling, or masses, exudates, or evidence of obstruction, uvula midline. Mucous membranes moist. Neck: Trachea midline, no thyromegaly or masses palpated, and no cervical lymphadenopathy. Supple, full range of motion without nuchal rigidity, or vertebral point tenderness. No Meningismus. Chest/axilla: Normal chest wall appearance and motion. Nontender with no deformity. No lesions are appreciated. Cardiovascular: Regular rate and rhythm with a normal S1 and S2. No gallops, murmurs, or rubs. Normal PMI, no JVD. No pulse deficits. Respiratory: Lungs have equal breath sounds bilaterally, clear to auscultation and percussion. No rales, rhonchi or wheezes noted. No increased work of breathing, no retractions or nasal flaring. Abdomen/GI: Soft, non-tender, with normal bowel sounds. No distension or tympany. No guarding or rebound. No evidence of tenderness throughout. Back: No spinal tenderness. No costovertebral tenderness. Full range of motion. Skin: Warm, dry with normal turgor. Normal color with no rashes, no lesions, and no evidence of cellulitis. Neuro: Awake and alert, GCS 15, oriented to person, place, time, and situation. Cranial nerves II-XII grossly intact. Motor strength 5/5 in all extremities. Sensory grossly intact. Cerebellar exam normal. Normal gait. Psych: Awake, alert, with orientation to person, place and time. Behavior, mood, and affect are within normal limits. 06:10 Musculoskeletal/extremity: ROM: limited active range of motion, limited passive range of motion, in the right hand, left hand, right foot and left foot, Circulation is intact in all extremities. Sensation intact. Compartment Syndrome exam of affected extremity: is normal. Weight bearing: able to fully bear weight, without difficulty, DVT Exam: no swelling, no tenderness, negative Homans' sign noted on exam, no appreciated bluish discoloration, no erythema, no increased warmth, pain. Vital Signs: 06:00 BP 108 / 74; Pulse 109; Resp 18; Temp 99.3; Pulse Ox 99% on R/A; Weight 73.03 kg; rr5 Height 5 ft. 3 in. (160.02 cm); Pain 10/10; 06:35 BP 102 / 60; Pulse 105; Resp 19; Pulse Ox 99% ; rr5 07:15 BP 96 / 63; Pulse 99; Resp 16 S; Pulse Ox 98% on R/A; aa5 08:50 BP 103 / 68; Pulse 101; Resp 18 S; Temp 100.1(O); Pulse Ox 98% on R/A; Pain 8/10; aa5 09:58 BP 104 / 71; Pulse 98; Resp 17 S; Pulse Ox 99% on R/A; sg 06:00 Body Mass Index 28.52 (73.03 kg, 160.02 cm) rr5 MDM: 05:53 Patient medically screened. [facility] 06:19 Data reviewed: vital signs, nurses notes, lab test result(s), EKG, radiologic studies, [facility] plain films. 02/10 06:10 Order name: Basic Metabolic Panel [facility] 02/10 06:10 Order name: CBC with Diff [facility] 02/10 06:10 Order name: LFT's [facility] 02/10 06:10 Order name: Magnesium; Complete Time: 07:22 [facility] 02/10 06:10 Order name: NT PRO-BNP; Complete Time: 07:22 [facility] 02/10 06:10 Order name: PT-INR; Complete Time: 07:22 [facility] 02/10 06:10 Order name: Troponin (emerg Dept Use Only); Complete Time: 07:22 [facility] 02/10 06:10 Order name: Pth,Intact; Complete Time: 07:51 [facility] 02/10 06:10 Order name: Basic Metabolic Panel; Complete Time: 07:22 [facility] 02/10 06:10 Order name: Liver (Hepatic) Function; Complete Time: 07:22 [facility] 02/10 06:20 Order name: TSH; Complete Time: 08:23 [facility] 02/10 08:10 Order name: Urine Dipstick--Ancillary (enter results) 02/10 08:23 Order name: Blood Culture Adult (2) [facility] 02/10 06:10 Order name: XRAY Chest (1 view) [facility] 02/10 08:23 Order name: Strep [facility] 02/10 09:05 Order name: CBC Smear Scan [facility] 02/10 06:10 Order name: EKG; Complete Time: 06:11 [facility] 02/10 06:10 Order name: Cardiac monitoring; Complete Time: 06:44 [facility] 02/10 06:10 Order name: EKG - Nurse/Tech; Complete Time: 06:44 [facility] 02/10 06:10 Order name: IV Saline Lock; Complete Time: 06:44 [facility] 02/10 06:10 Order name: Labs collected and sent; Complete Time: 06:44 [facility] 02/10 06:10 Order name: O2 Per Protocol; Complete Time: 06:44 [facility] 02/10 06:10 Order name: O2 Sat Monitoring; Complete Time: 06:44 [facility] Administered Medications: 06:43 Drug: NS 0.9% 500 ml Route: IV; Rate: bolus; Site: right forearm; rr5 07:25 Follow up: IV Status: Completed infusion aa5 07:25 Drug: NS 0.9% 1000 ml Route: IV; Rate: 125 ml/hr; Site: right forearm; aa5 07:40 Drug: Magnesium Oxide 400 mg Route: PO; aa5 08:50 Follow up: Response: No adverse reaction aa5 07:40 Drug: Potassium Effervescent Tablet 50 mEq Route: PO; aa5 08:50 Follow up: Response: No adverse reaction aa5 07:50 Drug: Calcium Gluconate 2 grams Route: IVPB; Infused Over: 60 mins; Site: right forearm;aa5 08:16 Follow up: Response: No adverse reaction aa 08:12 Drug: NS 0.9% 1000 ml Route: IV; Rate: 1000 ml; Site: right forearm; aa5 09:00 Drug: Calcium Carbonate 500 mg 2 tablet Route: PO; sg 09:15 Drug: Zofran 4 mg Route: IVP; Site: right antecubital; sg 09:20 Drug: Decadron - Dexamethasone 10 mg Route: IVP; Site: right antecubital; sg 10:20 Drug: Tylenol 1000 mg Route: PO; sg 10:20 Drug: Augmentin 875 mg Route: PO; sg 10:22 Not Given (Other Intervention Used): Rocephin - (cefTRIAXone) 1 grams IVPB once over 30 sg mins; (mix in 50 mL NS) 10:22 Drug: Rocephin 1 grams Route: IV; Rate: 1 bolus; Site: right antecubital; sg Disposition: 02/10/19 07:25 Discharged to Home. Impression: Hypocalcemia, Hypokalemia, Muscle spasm, Acute pharyngitis, Fever, unspecified, Vomiting. - Condition is Fair. - Discharge Instructions: Potassium Content of Foods, Fever, Adult, Nausea and Vomiting, Adult, Pharyngitis, Nausea and Vomiting, Adult, Sevd-ar-Bpho, Malnutrition, Pharyngitis, [id number], Hypocalcemia, Adult, Sore Throat, Umip-ub-Rodu, Fever, Adult, Uovl-sr-Lnet, Hypokalemia. - Prescriptions for Calcium 500 + D (D3) - take 1 tablet by ORAL route 3 times per day; 120 tablet. calcitriol 0.5 mcg Oral capsule - take 1 capsule by ORAL route once daily; 30 capsule. Augmentin 875- 125 mg Oral Tablet - take 1 tablet by ORAL route every 12 hours for 10 days; 20 tablet. Zofran 4 mg Oral Tablet - take 1 tablet by ORAL route every 12 hours As needed; 20 tablet. - Medication Reconciliation Form, Thank You Letter, Antibiotic Education, Prescription Opioid Use form. - Work release form (02/10/19 11:46). ss - Family Work Release (02/10/19 11:46). ss - Follow up: Private Physician; When: 2 - 3 days; Reason: Recheck today's complaints, Continuance of care, Re-evaluation by your physician. Follow up: Ramirez Bryant MD; When: 2 - 3 days; Reason: Recheck today's complaints, Re-evaluation by your physician. - Problem is new. - Symptoms have improved. Signatures: Dispatcher [employer] EDNY Emir Peace RN RN sg Keanu Willingham MD MD cha Calderon, Audri, RN RN aa5 Farzad Nazario RN RN rr5 Luh Shelley RN ss Corrections: (The following items were deleted from the chart) 06:11 06:11 CALCIUM+C.LAB.BRZ ordered. [facility] 08:25 07:25 02/10/2019 07:25 Discharged to Home. Impression: Hypocalcemia; Hypokalemia; ramón Muscle spasm. Condition is Fair. Forms are Medication Reconciliation Form, Thank You Letter, Antibiotic Education, Prescription Opioid Use. Follow up: Private Physician; When: 2 - 3 days; Reason: Recheck today's complaints, Continuance of care, Re-evaluation by your physician. Problem is new. Symptoms have improved. [facility] 08:27 08:25 02/10/2019 07:25 Discharged to Home. Impression: Hypocalcemia; Hypokalemia; ramón Muscle spasm; Acute pharyngitis; Fever, unspecified. Condition is Fair. Discharge Instructions: Potassium Content of Foods, Malnutrition, Hypocalcemia, Adult, Hypokalemia. Prescriptions for Calcium 500 + D (D3) - take 1 tablet by ORAL route 3 times per day; 120 tablet, calcitriol 0.5 mcg Oral capsule - take 1 capsule by ORAL route once daily; 30 capsule. and Forms are Medication Reconciliation Form, Thank You Letter, Antibiotic Education, Prescription Opioid Use. Follow up: Private Physician; When: 2 - 3 days; Reason: Recheck today's complaints, Continuance of care, Re-evaluation by your physician. Problem is new. Symptoms have improved. [facility] 08:37 08:27 02/10/2019 07:25 Discharged to Home. Impression: Hypocalcemia; Hypokalemia; ramón Muscle spasm; Acute pharyngitis; Fever, unspecified. Condition is Fair. Discharge Instructions: Potassium Content of Foods, Malnutrition, Hypocalcemia, Adult, Hypokalemia, Fever, Adult, Pharyngitis, Pharyngitis, Cycc-rp-Jmki, Sore Throat, Fgvu-dv-[id number], Fever, Adult, Nkbp-iv-Srfo. Prescriptions for Calcium 500 + D (D3) - take 1 tablet by ORAL route 3 times per day; 120 tablet, calcitriol 0.5 mcg Oral capsule - take 1 capsule by ORAL route once daily; 30 capsule, Augmentin 875-125 mg Oral Tablet - take 1 tablet by ORAL route every 12 hours for 10 days; 20 tablet. and Forms are Medication Reconciliation Form, Thank You Letter, Antibiotic Education, Prescription Opioid Use. Follow up: Private Physician; When: 2 - 3 days; Reason: Recheck today's complaints, Continuance of care, Re-evaluation by your physician. Follow up: Ramirez Bryant; When: 2 - 3 days; Reason: Recheck today's complaints, Re-evaluation by your physician. Problem is new. Symptoms have improved. [facility] 11:45 08:37 02/10/2019 07:25 Discharged to Home. Impression: Hypocalcemia; Hypokalemia; sg Muscle spasm; Acute pharyngitis; Fever, unspecified; Vomiting. Condition is Fair. Discharge Instructions: Potassium Content of Foods, Malnutrition, Hypocalcemia, Adult, Hypokalemia, Fever, Adult, Pharyngitis, Pharyngitis, Jllg-gm-Penk, Sore Throat, Kcpb-qd-Aagr, Fever, Adult, Zotq-lr-Uqly. Prescriptions for Calcium 500 + D (D3) - take 1 tablet by ORAL route 3 times per day; 120 tablet, calcitriol 0.5 mcg Oral capsule - take 1 capsule by ORAL route once daily; 30 capsule, Augmentin 875-125 mg Oral Tablet - take 1 tablet by ORAL route every 12 hours for 10 days; 20 tablet. and Forms are Medication Reconciliation Form, Thank You Letter, Antibiotic Education, Prescription Opioid Use. Follow up: Private Physician; When: 2 - 3 days; Reason: Recheck today's complaints, Continuance of care, Re-evaluation by your physician. Follow up: Ramirez Bryant; When: 2 - 3 days; Reason: Recheck today's complaints, Re-evaluation by your physician. Problem is new. Symptoms have improved. ramón
[2019-02-10] MEDS ORDERED: MAGNESIUM OXIDE 400 MG TAB ONE (07:51)
[2019-02-10] MEDS ORDERED: POTASSIUM 25 MEQ EFFERV TAB ONE (07:51)
[2019-02-10] MEDS ORDERED: Calcium Gluconate 9.3 mEq (=2gm)/NS 100 mL IVPB IV ONE ×2 (08:00)
[2019-02-10] MEDS ORDERED: CALCIUM CARBONATE 500 MG TAB PO ONE ×2 (08:00)
--- NOTE | 2019-02-10 08:04 | EKG ---
Test Date: 2019-02-10 Test Time: 06:21:34 Film Sorter: RR MEASUREMENT RESULTS: Intervals: Rate: 110 NV: 128 QRSD: 72 QT: 342 QTc: 462 [place]: P: 53 NV: 128 QRS: 70 T: 34 INTERPRETIVE STATEMENTS: Sinus tachycardia Nonspecific T wave abnormality Abnormal ECG Compared to ECG 10/30/2018 23:06:50 T-wave abnormality now present Sinus rhythm no longer present Electronically Signed On 02-10-19 08:04:06 CDT by Harrison Ferguson
--- NOTE | 2019-02-10 08:26 | RAD REPORT ---
EXAM DESCRIPTION: RAD - Chest Single View - 02/10/2019 7:17 am CLINICAL HISTORY: COUGH Chest pain. COMPARISON: Chest Single View dated 10/31/2018; Chest Single View dated 07/15/2018; Chest Single View dated 01/20/2018; Chest Pa And Lat (2 Views) dated 12/27/2017 FINDINGS: Portable technique limits examination quality. Mildly prominent interstitial lung markings are seen, nonspecific. No focal infiltrate typical of pne umonia. The heart is normal in size. No displaced fractures.
[2019-02-10 09:05] LABS: Blood Morphology Comment NOT SEEN (NOT SEEN); Platelet Estimate ADEQ; Urine White Blood Cell Casts OK
[2019-02-10 09:19] LABS: Urine Blood 2+ (NEG); Urine Glucose NEGATIVE (NEG); Urine Protein NEGATIVE (NEG); Urine pH 8.5 (5.0-7.0)
[2019-02-10] MEDS ORDERED: CEFTRIAXONE/SWI 1gm 1 GM/10 ML SYR ONE (09:25)
[2019-02-10] MEDS ORDERED: AMOX/K CLAV 875 MG TAB ONE (09:25)
[2019-02-10] MEDS ORDERED: ACETAMINOPHEN 500 MG TAB ONE (09:25)
[2019-02-10] MEDS ORDERED: DEXAMETHASONE 10 MG/ML VIAL ONE (09:25)
[2019-02-10] MEDS ORDERED: ONDANSETRON 4 MG/2 ML VIAL ONE (09:25)
== END 2019-02-10 11:45 | disposition home or self-care (01) ==
LOC: ER 05:47
DX: E83.51 Hypocalcemia (principal); E87.6 Hypokalemia; J02.9 Acute pharyngitis, unspecified; R11.10 Vomiting, unspecified; R50.9 Fever, unspecified; E03.9 Hypothyroidism, unspecified; Z85.850 Personal history of malignant neoplasm of thyroid
CPT/HCPCS: 36415; 71045; 80048; 80076; 81003; 83735; 83880; 83970; 84443; 84484; 85025; 85610; 87040; 87081; 93005; J0610; J0696; J1100; J2405; J7030

== ENCOUNTER 2019-10-05 23:18 | Emergency (ER) | payer SELFPAY ==
--- OUTSIDE RECORDS SUMMARY | 2019-10-05 23:20 | XMS REPORT ---
:1975 [facility] Address [address] [place] [address] Dr. Dahl [address] [place] [id number] Care Team Providers Name Role Phone Unavailable Unavailable Unavailable Problems This patient has no known problems. Allergies, Adverse Reactions, Alerts This patient has no known allergies or adverse reactions. Medications This patient has no known medications.
[2019-10-05] MEDS ORDERED: ALBUTEROL 2.5 MG/3 ML NEB SOL ONE (23:30)
[2019-10-05] MEDS ORDERED: IPRATROPIUM BROM 0.5MG/2.5ML ONE (23:30)
[2019-10-05] MEDS ORDERED: METHYLPREDNISOLONE 125 MG INJ ONE (23:43)
[2019-10-06 00:31] LABS: Absolute Lymphocytes (CBC) 3.2 K/uL (0.7-4.9); Basophils % 0.8 % (0-1.3); Hematocrit 39.6 % (36.0-45.0); Lymphocytes % 37.2 % (15.3-44.8); MPV 8.3 fL (7.6-11.3); RBC Red Blood Cell Count 4.62 M/uL (3.86-4.86)
[2019-10-06 00:45] LABS: ALT/SGPT 26 U/L (12-78); AST/SGOT 18 U/L (15-37); Albumin 3.4 g/dL (3.4-5.0); Alkaline Phosphatase 87 U/L (45-117); BUN Blood Urea Nitrogen 8 mg/dL (7-18); Bicarbonate 27 mmol/L (21-32); Bilirubin Total 0.2 mg/dL (0.2-1.0); Glucose Level 125 mg/dL (74-106); Lipase 316 U/L (73-393); Magnesium 2.1 mg/dL (1.8-2.4); NT PRO-BNP 20 pg/mL (<125); Potassium 3.1 mmol/L (3.5-5.1); Protein, Total 7.2 g/dL (6.4-8.2); Sodium Level 141 mmol/L (136-145); Troponin (Emerg Dept Use Only) < 0.02 ng/mL (0.0-0.045)
--- NOTE | 2019-10-06 01:07 | ER ---
Nurse's Notes [facility] Name: Grace Holder Age: 44 yrs Sex: Female : 1975 Arrival Date: 10/05/2019 Time: 23:24 Bed 15 Private MD: Diagnosis: Viral URI;Bronchospasm Presentation: 10/05 23:36 Presenting complaint: Patient states: started coughing a week ago. she took Nyquil and rv Cinnamon tea, and got SOB after that. happened 30 minutes ago. Transition of care: patient was not received from another setting of care. Onset of symptoms was October 05, 2019 at 23:00. Risk Assessment: Do you want to hurt yourself or someone else? Patient reports no desire to harm self or others. Initial Sepsis Screen: Does the patient meet any 2 criteria? No. Patient's initial sepsis screen is negative. Does the patient have a suspected source of infection? No. Patient's initial sepsis screen is negative. Care prior to arrival: None. 23:36 Method Of Arrival: Ambulatory rv 23:36 Acuity: IRVIN 3 rv Triage Assessment: 23:39 General: Appears uncomfortable, Behavior is calm, cooperative. Pain: Denies pain. rv Neuro: Level of Consciousness is awake, alert, obeys commands, Oriented to person, place, time, situation. Cardiovascular: Patient's skin is warm and dry. Respiratory: Reports shortness of breath at rest cough that is Onset: The symptoms/episode began/occurred just prior to arrival, the patient has moderate shortness of breath. Derm: Skin is intact. Historical: - Allergies: 23:39 No Known Allergies; rv - PMHx: 23:39 Hypothyroidism; THYROID CANCER; rv - PSHx: 23:39 ; thyroid sx; rv - Immunization history:: Adult Immunizations up to date. - Social history:: Smoking status: Patient/guardian denies using tobacco. - Ebola Screening: : No symptoms or risks identified at this time. Screenin:45 Abuse screen: Denies threats or abuse. Nutritional screening: No deficits noted. jb4 Tuberculosis screening: No symptoms or risk factors identified. Fall Risk None identified. Assessment: 23:45 General: Appears in no apparent distress. uncomfortable, Behavior is calm, cooperative, jb4 appropriate for age. Pain: Denies pain. Neuro: Level of Consciousness is awake, alert, obeys commands, Oriented to person, place, time, situation. Cardiovascular: Rhythm is sinus rhythm. Respiratory: Airway is patent Respiratory effort is even, unlabored, Respiratory pattern is regular, symmetrical, Breath sounds with wheezes bilaterally. GI: No signs and/or symptoms were reported involving the gastrointestinal system. : No signs and/or symptoms were reported regarding the genitourinary system. EENT: No signs and/or symptoms were reported regarding the EENT system. Derm: Skin is intact, Skin is pink, warm \T\ dry. Musculoskeletal: Circulation, motion, and sensation intact. Range of motion: intact in all extremities. 10/06 00:46 Reassessment: Patient appears in no apparent distress at this time. Patient and/or jb4 family updated on plan of care and expected duration. Pain level reassessed. Patient is alert, oriented x 3, equal unlabored respirations, skin warm/dry/pink. 00:46 Respiratory: Airway is patent Respiratory effort is even, unlabored, Respiratory jb4 pattern is regular, symmetrical, Breath sounds are clear bilaterally. 01:26 Reassessment: Patient appears in no apparent distress at this time. Patient and/or jb4 family updated on plan of care and expected duration. Pain level reassessed. Patient is alert, oriented x 3, equal unlabored respirations, skin warm/dry/pink. Vital Signs: 10/05 23:37 Pulse 87; Resp 26; Temp 98.7; Pulse Ox 98% on R/A; Weight 77.11 kg; Height 5 ft. 2 in. rv (157.48 cm); 10/06 00:56 BP 118 / 73; Pulse 79; Resp 18; Pulse Ox 99% on R/A; jb4 01:26 BP 105 / 72; Pulse 96; Resp 16; Pulse Ox 96% on R/A; jb4 10/05 23:37 Body Mass Index 31.09 (77.11 kg, 157.48 cm) rv ED Course: 10/05 23:24 Patient arrived in ED. cf2 23:33 Mumtaz Hong MD is Attending Physician. ps1 23:37 Triage completed. rv 23:39 Arm band placed on Patient placed in the treatment room, on a stretcher, on pulse rv oximetry, Patient notified of wait time. 23:45 Patient has correct armband on for positive identification. Placed in gown. Bed in low jb4 position. Call light in reach. Side rails up X 1. Pulse ox on. NIBP on. 23:56 Initial lab(s) drawn, by me. Inserted saline lock: 22 gauge in left forearm, using jb4 aseptic technique. Blood collected. 10/06 00:06 Beto Rodriguez, RN is Primary Nurse. jb4 00:50 XRAY CXR (1 view) In Process Unspecified. EDMS 01:27 No provider procedures requiring assistance completed. IV discontinued, intact, jb4 bleeding controlled, No redness/swelling at site. Pressure dressing applied. Administered Medications: 10/05 23:30 Drug: DuoNeb (3:1) (2.5 mg - 0.5 mg) 3 ml Route: Nebulizer; rv 10/06 01:00 Follow up: Response: No adverse reaction; Marked relief of symptoms; Wheezing diminishedjb4 10/05 23:56 Drug: SOLU-Medrol 125 mg Route: IVP; Site: left forearm; jb4 10/06 01:28 Follow up: Response: No adverse reaction jb4 Outcome: 01:02 Discharge ordered by . ps1 01:27 Discharged to home ambulatory. jb4 01:27 Condition: stable 01:27 Discharge instructions given to patient, Instructed on discharge instructions, follow up and referral plans. medication usage, Demonstrated understanding of instructions, follow-up care, medications, Prescriptions given X 2. 01:30 Patient left the ED. jb4 Signatures: Dispatcher [employer] EDME Beto Rodriguez, LEVY LOCKETT jb4 Mumtaz Hong MD MD [facility] Phil Suárez RN RN Rosy Gillespie cf2 Corrections: (The following items were deleted from the chart) 00:27 00:25 SOLU-Medrol 125 mg IVP in left forearm jb4 jb4
--- NOTE | 2019-10-06 01:08 | EDPHYS ---
Physician Documentation [facility] Name: Grace Holder Age: 44 yrs Sex: Female : 1975 Arrival Date: 10/05/2019 Time: 23:24 Bed 15 Private MD: ED Physician Mumtaz Hong HPI: 10/06 00:24 This 44 yrs old Female presents to ER via Ambulatory with complaints of ps1 Shortness Of Breath. 00:24 Patient states that she has had a cough for about a week. States that she has been ps1 using home remedies and tolerating ok. 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 A\T\A given prior to my exam. No hx of COPD or asthma. Cough is non-productive and afebrile. . Historical: - Allergies: 10/05 23:39 No Known Allergies; rv - PMHx: 23:39 Hypothyroidism; THYROID CANCER; rv - PSHx: 23:39 ; thyroid sx; rv - Immunization history:: Adult Immunizations up to date. - Social history:: Smoking status: Patient/guardian denies using tobacco. - Ebola Screening: : No symptoms or risks identified at this time. ROS: 10/06 00:24 Constitutional: Negative for fever, chills, and weight loss, Eyes: Negative for injury, ps1 pain, redness, and discharge, Cardiovascular: Negative for chest pain, palpitations, and edema, Abdomen/GI: Negative for abdominal pain, nausea, vomiting, diarrhea, and constipation, Back: Negative for injury and pain, MS/Extremity: Negative for injury and deformity, Skin: Negative for injury, rash, and discoloration, Neuro: Negative for headache, weakness, numbness, tingling, and seizure. Respiratory: Positive for cough, with no reported sputum, wheezing. Exam: 00:24 Constitutional: This is a well developed, well nourished patient who is awake, alert, ps1 and in no acute distress. Head/Face: Normocephalic, atraumatic. Eyes: Pupils equal round and reactive to light, extra-ocular motions intact. Lids and lashes normal. Conjunctiva and sclera are non-icteric and not injected. Chest/axilla: Normal chest wall appearance and motion. Nontender with no deformity. No lesions are appreciated. Cardiovascular: Regular rate and rhythm. No gallops, murmurs, or rubs. Normal PMI, no JVD. No pulse deficits. Abdomen/GI: Soft, non-tender, with normal bowel sounds. No distension or tympany. No guarding or rebound. No evidence of tenderness throughout. MS/ Extremity: Pulses equal, no cyanosis. Neurovascular intact. Full, normal range of motion. Neuro: Awake and alert, GCS 15, oriented to person, place, time, and situation. Cranial nerves II-XII grossly intact. Sensory grossly intact. Psych: Awake, alert, with orientation to person, place and time. Behavior, mood, and affect are within normal limits. 00:24 Respiratory: the patient does not display signs of respiratory distress, Respirations: normal, Breath sounds: wheezing: that is mild. Vital Signs: 10/05 23:37 Pulse 87; Resp 26; Temp 98.7; Pulse Ox 98% on R/A; Weight 77.11 kg; Height 5 ft. 2 in. rv (157.48 cm); 10/06 00:56 BP 118 / 73; Pulse 79; Resp 18; Pulse Ox 99% on R/A; jb4 01:26 BP 105 / 72; Pulse 96; Resp 16; Pulse Ox 96% on R/A; jb4 10/05 23:37 Body Mass Index 31.09 (77.11 kg, 157.48 cm) rv MDM: 10/05 23:35 Patient medically screened. ps1 10/06 01:11 Data reviewed: vital signs, nurses notes, lab test result(s), radiologic studies, and ps1 as a result, I will discharge patient. Counseling: I had a detailed discussion with the patient and/or guardian regarding: the historical points, exam findings, and any diagnostic results supporting the discharge/admit diagnosis, lab results, radiology results, the need for outpatient follow up, to return to the emergency department if symptoms worsen or persist or if there are any questions or concerns that arise at home. 10/06 00:07 Order name: CBC with Diff; Complete Time: 00:46 ps1 10/06 00:07 Order name: Lipase; Complete Time: 00:47 ps1 10/06 00:07 Order name: Magnesium; Complete Time: 00:47 ps1 10/06 00:07 Order name: NT PRO-BNP; Complete Time: 00:47 ps1 10/06 00:07 Order name: Troponin (emerg Dept Use Only); Complete Time: 00:47 ps1 10/06 00:07 Order name: CMP; Complete Time: 00:47 ps1 10/06 00:07 Order name: XRAY CXR (1 view) ps1 10/06 00:07 Order name: EKG; Complete Time: 00:08 ps1 10/06 00:07 Order name: Cardiac monitoring; Complete Time: 00:14 ps1 10/06 00:07 Order name: EKG - Nurse/Tech; Complete Time: 00:14 ps1 10/06 00:07 Order name: IV Saline Lock; Complete Time: 00:27 ps1 10/06 00:07 Order name: Labs collected and sent; Complete Time: 00:27 ps1 10/06 00:07 Order name: O2 Per Protocol; Complete Time: 00:14 ps1 10/06 00:07 Order name: O2 Sat Monitoring; Complete Time: 00:14 ps1 Administered Medications: 10/05 23:30 Drug: DuoNeb (3:1) (2.5 mg - 0.5 mg) 3 ml Route: Nebulizer; rv 10/06 01:00 Follow up: Response: No adverse reaction; Marked relief of symptoms; Wheezing diminishedjb4 10/05 23:56 Drug: SOLU-Medrol 125 mg Route: IVP; Site: left forearm; jb4 10/06 01:28 Follow up: Response: No adverse reaction jb4 Disposition: 10/06/19 01:02 Discharged to Home. Impression: Viral URI, Bronchospasm. - Condition is Stable. - Discharge Instructions: Viral Respiratory Infection. - Prescriptions for Medrol (Vipul) 4 mg Oral Tablets, Dose Pack - take 1 tablet by ORAL route as directed - follow package instructions; 1 packet. Albuterol Sulfate 90 mcg/actuation - inhale 1-2 puff by INHALATION route every 4-6 hours; 1 Inhaler. - Medication Reconciliation Form, Thank You Letter, Antibiotic Education, Prescription Opioid Use form. - Follow up: Private Physician; When: As needed; Reason: Recheck today's complaints, Continuance of care, Re-evaluation by your physician. Follow up: Emergency Department; When: As needed; Reason: Fever > 102 F, Trouble breathing, Worsening of condition. - Problem is new. - Symptoms are resolved. Signatures: Dispatcher [employer] EDBeto Genao RN RN jb4 Mumtaz Hong MD MD ps1 Phil Suárez RN RN rv Corrections: (The following items were deleted from the chart) 01:30 01:02 10/06/2019 01:02 Discharged to Home. Impression: Viral URI; Bronchospasm. jb4 Condition is Stable. Forms are Medication Reconciliation Form, Thank You Letter, Antibiotic Education, Prescription Opioid Use. Follow up: Private Physician; When: As needed; Reason: Recheck today's complaints, Continuance of care, Re-evaluation by your physician. Follow up: Emergency Department; When: As needed; Reason: Fever > 102 F, Trouble breathing, Worsening of condition. Problem is new. Symptoms are resolved. ps1
[2019-10-06 02:10] VITALS: TEMP 98.7
[2019-10-06 02:13] VITALS: BP 105/72; O2SAT 96
--- NOTE | 2019-10-06 08:12 | RAD REPORT ---
EXAM DESCRIPTION: RAD - Chest Single View - 10/06/2019 12:50 am CLINICAL HISTORY: COUGH Chest pain. COMPARISON: Chest Single View dated 02/10/2019; Chest Single View dated 10/31/2018; Chest Single View dated 07/15/2018; Chest Single View dated 01/20/2018 FINDINGS: Portable technique limits examination quality. The lungs are grossly clear. The heart is normal in size. No displaced fractures. IMPRESSION: No acute intrathoracic process suspected.
--- NOTE | 2019-10-06 20:48 | EKG ---
Test Date: 2019-10-06 Test Time: 00:12:48 Museum Exhibit Designer: CHARLEEN MEASUREMENT RESULTS: Intervals: Rate: 84 MO: 134 QRSD: 74 QT: 312 QTc: 368 [place]: P: 45 MO: 134 QRS: 56 T: 56 INTERPRETIVE STATEMENTS: Normal sinus rhythm Nonspecific T wave abnormality Abnormal ECG Compared to ECG 02/10/2019 06:21:34 Sinus tachycardia no longer present T-wave abnormality still present Electronically Signed On 10-06-19 20:46:44 COORDINATOR OF ONLINE PROGRAMS by Dixon Segovia
== END 2019-10-06 01:30 | disposition home or self-care (01) ==
LOC: ER 23:18
DX: J98.01 Acute bronchospasm (principal); J06.9 Acute upper respiratory infection, unspecified; Z85.850 Personal history of malignant neoplasm of thyroid
CPT/HCPCS: 36415; 71045; 80053; 83690; 83735; 83880; 84484; 85025; 93005; 94640; 96374; 99285; J2930

== ENCOUNTER 2019-11-08 22:34 | Emergency (ER) | payer SELFPAY ==
--- OUTSIDE RECORDS SUMMARY | 2019-11-08 22:36 | XMS REPORT ---
:1975 [facility] [address] [place] [address] [place] [id number] Care Team Providers Name Role Phone Unavailable Unavailable Unavailable Problems This patient has no known problems. Allergies, Adverse Reactions, Alerts This patient has no known allergies or adverse reactions. Medications This patient has no known medications.
[2019-11-08] MEDS ORDERED: dexAMETHasone 10 MG/ML VIAL ONE (22:57)
[2019-11-08] MEDS ORDERED: EPINEPHRINE INH 0.5 ML VIAL IH ONE (22:58)
[2019-11-08] MEDS ORDERED: LEVALBUTEROL 1.25 MG/3 ML NEB ONE (22:58)
[2019-11-08] MEDS ORDERED: NA CHLORIDE 0.9% 1,000 ML ONE (22:58)
[2019-11-09 00:10] LABS: Absolute Lymphocytes (CBC) 2.6 K/uL (0.7-4.9); Basophils % 0.7 % (0-1.3); Hematocrit 40.2 % (36.0-45.0); Lymphocytes % 31.8 % (15.3-44.8); MPV 8.8 fL (7.6-11.3); RBC Red Blood Cell Count 4.65 M/uL (3.86-4.86)
[2019-11-09 00:23] LABS: Potassium 3.4 mmol/L (3.5-5.1)
--- NOTE | 2019-11-09 02:10 | EDPHYS ---
Physician Documentation [facility] Name: Grace Holder Age: 44 yrs Sex: Female : 1975 Arrival Date: 11/08/2019 Time: 22:34 Bed 8 Private MD: ED Physician Derrick French HPI: 11/08 23:11 This 44 yrs old Female presents to ER via Ambulatory with complaints of rn Breathing Difficulty. 23:11 The patient has shortness of breath at rest, with light activity. Onset: The rn symptoms/episode began/occurred 2 month(s) ago. Duration: The symptoms are continuous. The patient's shortness of breath is aggravated by exertion, supine position. Severity of symptoms: At their worst the symptoms were moderate in the emergency department the symptoms are unchanged. The patient has experienced similar episodes in the past. The patient has not recently seen a physician. Reports sob, seen in past and given steroids, states helps for short period of time, but then came back, states this has been happening for 2 months, no fever, no trauma, feels like more in throat or upper airways. Hx of thyroid cancer and thyroidectomy. . Historical: - Allergies: 22:40 No Known Allergies; hb - PMHx: 22:40 Hypothyroidism; THYROID CANCER; hb - PSHx: 22:40 ; thyroid sx; hb - Immunization history:: Adult Immunizations up to date. - Coronavirus screen:: The patient has NOT traveled to [place], [place], or [place] in the past 14 days. Proceed with normal triage process as indicated. The patient has NOT had contact with known/suspected case of Coronavirus? Proceed with normal triage procedures. - Social history:: Smoking status: Patient denies any tobacco usage or history of. - Family history:: not pertinent. - Ebola Screening: : No symptoms or risks identified at this time. - Hospitalizations: : No recent hospitalization is reported. ROS: 23:11 Constitutional: Negative for fever, chills, and weight loss, Eyes: Negative for injury, rn pain, redness, and discharge, ENT: Negative for injury, pain, and discharge, Neck: Negative for injury, pain, and swelling, Cardiovascular: Negative for chest pain, palpitations, and edema, Respiratory: + sob and cough Abdomen/GI: Negative for abdominal pain, nausea, vomiting, diarrhea, and constipation, MS/Extremity: Negative for injury and deformity, Skin: Negative for injury, rash, and discoloration, Neuro: Negative for headache, weakness, numbness, tingling, and seizure. Exam: 23:11 Constitutional: This is a well developed, well nourished patient who is awake, alert, rn moderate tachypnea Head/Face: Normocephalic, atraumatic. ENT: No oral swelling, + wheezing/stridor Cardiovascular: Tachycardic, reg Respiratory: faint wheezing on inspiration, + moderate tachypnea Skin: Warm, dry with normal turgor. Normal color with no rashes, no lesions, and no evidence of cellulitis. MS/ Extremity: Pulses equal, no cyanosis. Neurovascular intact. Full, normal range of motion. Equal circumference. Neuro: Awake and alert, GCS 15, oriented to person, place, time, and situation. Cranial nerves II-XII grossly intact. Motor strength 5/5 in all extremities. Sensory grossly intact. Cerebellar exam normal. Normal gait. Vital Signs: 22:39 BP 122 / 99; Pulse 122; Resp 20; Temp 97.8; Pulse Ox 99% on R/A; Weight 81.19 kg; hb Height 5 ft. 1 in. (154.94 cm); Pain 0/10; 11/09 00:00 BP 108 / 78; Pulse 94; Resp 23; Pulse Ox 97% on R/A; rv 00:33 BP 105 / 66; Pulse 89; Resp 18; Pulse Ox 100% on R/A; rv 01:30 BP 98 / 64; Pulse 92; Resp 16; Pulse Ox 97% on R/A; rv 02:29 BP 95 / 64; Pulse 91; Resp 16; Pulse Ox 96% on R/A; rv 11/08 22:39 Body Mass Index 33.82 (81.19 kg, 154.94 cm) hb MDM: 11/08 22:44 Patient medically screened. rn 11/09 00:39 ED course: Pt improved, wheezing has improved, awaiting results of CT neck.. rn 02:07 Differential diagnosis: neck cancer, stridor, mass, inflammation, post procedural rn swelling, infectious, URI, asthma. Data reviewed: vital signs, nurses notes, lab test result(s), radiologic studies, CT scan, and as a result, I will discharge patient. Counseling: I had a detailed discussion with the patient and/or guardian regarding: the historical points, exam findings, and any diagnostic results supporting the discharge/admit diagnosis, lab results, radiology results, the need for outpatient follow up, to return to the emergency department if symptoms worsen or persist or if there are any questions or concerns that arise at home. Response to treatment: the patient's symptoms have markedly improved after treatment, and as a result, I will discharge patient. Special discussion: I discussed with the patient/guardian in detail that at this point there is no indication for admission to the hospital. It is understood, however, that if the symptoms persist or worsen the patient needs to return immediately for re-evaluation. Based on the history and exam findings, there is no indication for further emergent testing or inpatient evaluation. I discussed with the patient/guardian the need to see the ENT specialist for further evaluation of the symptoms. ED course: Pt feels much better, no stridor or wheezing, will dc home with ENT f/u as has been happening for months, stable vitals, and no acute findings on CT neck or cxr. . 11/08 23:38 Order name: Basic Metabolic Panel; Complete Time: 01:59 EDGA 11/08 23:38 Order name: NT PRO-BNP; Complete Time: : EDGA 11/08 23:38 Order name: CBC with Automated Diff; Complete Time: : EDGA 11/08 22:52 Order name: XRAY Chest (1 view) rn 11/09 00:22 Order name: Soft Tissue Neck W/Contr EDGA 11/08 22:52 Order name: IV Start; Complete Time: 23:12 rn Administered Medications: 11/08 22:55 Drug: Xopenex (3) 1.25 mg Route: Inhalation; rv 11/09 00:18 Follow up: Response: No adverse reaction; Marked relief of symptoms; Wheezing diminishedvc 11/08 23:00 Drug: Decadron - Dexamethasone 10 mg Route: IVP; Site: right forearm; rv 11/09 00:18 Follow up: Response: No adverse reaction; Marked relief of symptoms vc 11/08 23:00 Drug: NS 0.9% 1000 ml Route: IV; Rate: 1000 ml; Site: right forearm; rv 11/09 00:18 Follow up: IV Status: Completed infusion; IV Intake: 1000ml vc 11/08 23:00 Drug: Racemic EPINPHrine 0.5 ml Route: Inhalation; rv 11/09 00:17 Follow up: Response: No adverse reaction; Marked relief of symptoms vc Disposition: 11/09/19 02:09 Discharged to Home. Impression: Wheezing. - Condition is Stable. - Prescriptions for Prednisone 20 mg Oral Tablet - take 3 tablet by ORAL route once daily for 5 days; 15 tablet. Albuterol Sulfate 2.5 mg /3 mL (0.083 %) Inhalation Solution for Nebulization - inhale 1 unit by NEBULIZATION route every 8 hours As needed; 1 box. - Medication Reconciliation Form, Thank You Letter, Antibiotic Education, Prescription Opioid Use form. - Follow up: Camille Sharma MD; When: As needed; Reason: Recheck today's complaints, Re-evaluation by your physician. - Problem is new. - Symptoms have improved. Signatures: Dispatcher [employer] EDMS Derrick French MD MD rn Baxter, Heather RN Phil Sanders RN RN rv [place], Vanessa RN vc Corrections: (The following items were deleted from the chart) 02:17 02:17 CBC+H.LAB.BRZ ordered. EDMS EDMS 02:17 02:17 BASIC METABOLIC PANEL+C.LAB.BRZ ordered. EDMS EDMS 02:17 02:17 PROBNP+C.LAB.BRZ ordered. EDMS EDMS 02:17 02:17 Chest Single View+RAD.RAD.BRZ ordered. EDGA EDMS 02:17 02:17 Soft Tissue Neck W/Contr+CT.RAD.BRZ ordered. EDGA EDMS 02:31 02:09 11/09/2019 02:09 Discharged to Home. Impression: Wheezing. Condition is Stable. rv Forms are Medication Reconciliation Form, Thank You Letter, Antibiotic Education, Prescription Opioid Use. Follow up: Camille Sharma; When: As needed; Reason: Recheck today's complaints, Re-evaluation by your physician. Problem is new. Symptoms have improved. rn
--- NOTE | 2019-11-09 02:10 | ER ---
Nurse's Notes [facility] Name: Grace Holder Age: 44 yrs Sex: Female : 1975 Arrival Date: 11/08/2019 Time: 22:34 Bed 8 Private MD: Diagnosis: Wheezing Presentation: 11/08 22:38 Presenting complaint: SOB and productive coughx 1 week, worse today. Transition of hb care: patient was not received from another setting of care. Onset of symptoms was November 08, 2019. Risk Assessment: Do you want to hurt yourself or someone else? Patient reports no desire to harm self or others. Care prior to arrival: Medication(s) given: Albuterol Neb x 1. 22:38 Method Of Arrival: Ambulatory hb 22:38 Acuity: IRVIN 3 hb 23:14 Initial Sepsis Screen: Does the patient meet any 2 criteria? RR > 20 per min. HR > 90 rv bpm. Yes Does the patient have a suspected source of infection? Yes: Productive cough/pneumonia. Triage Assessment: 23:14 General: Appears in no apparent distress. Behavior is calm, cooperative. Respiratory: rv Reports shortness of breath at rest Onset: The symptoms/episode began/occurred gradually, the patient has moderate shortness of breath. Historical: - Allergies: 22:40 No Known Allergies; hb - PMHx: 22:40 Hypothyroidism; THYROID CANCER; hb - PSHx: 22:40 ; thyroid sx; hb - Immunization history:: Adult Immunizations up to date. - Coronavirus screen:: The patient has NOT traveled to [place], [place], or [place] in the past 14 days. Proceed with normal triage process as indicated. The patient has NOT had contact with known/suspected case of Coronavirus? Proceed with normal triage procedures. - Social history:: Smoking status: Patient denies any tobacco usage or history of. - Family history:: not pertinent. - Ebola Screening: : No symptoms or risks identified at this time. - Hospitalizations: : No recent hospitalization is reported. Screenin:13 Abuse screen: Denies threats or abuse. Denies injuries from another. Nutritional rv screening: No deficits noted. Tuberculosis screening: No symptoms or risk factors identified. Fall Risk None identified. Assessment: 23:13 General: Appears in no apparent distress. Pain: Denies pain. Neuro: Level of rv Consciousness is awake, alert, obeys commands, Oriented to person, place, time, situation. Cardiovascular: Patient's skin is warm and dry. Rhythm is regular. Respiratory: Airway is patent Respiratory effort is labored, Breath sounds with wheezes bilaterally. 11/09 00:00 Reassessment: Patient and/or family updated on plan of care and expected duration. Pain vc level reassessed. Patient denies pain at this time. 01:00 Reassessment: Patient ambulated to bathroom. no SOB noted. vc 02:00 Reassessment: Patient and/or family updated on plan of care and expected duration. Pain vc level reassessed. Patient is alert, oriented x 3, equal unlabored respirations, skin warm/dry/pink. Patient denies pain at this time. Patient states feeling better. Patient states symptoms have improved. Vital Signs: 11/08 22:39 BP 122 / 99; Pulse 122; Resp 20; Temp 97.8; Pulse Ox 99% on R/A; Weight 81.19 kg; hb Height 5 ft. 1 in. (154.94 cm); Pain 0/10; 11/09 00:00 BP 108 / 78; Pulse 94; Resp 23; Pulse Ox 97% on R/A; rv 00:33 BP 105 / 66; Pulse 89; Resp 18; Pulse Ox 100% on R/A; rv 01:30 BP 98 / 64; Pulse 92; Resp 16; Pulse Ox 97% on R/A; rv 02:29 BP 95 / 64; Pulse 91; Resp 16; Pulse Ox 96% on R/A; rv 11/08 22:39 Body Mass Index 33.82 (81.19 kg, 154.94 cm) ED Course: 11/08 22:34 Patient arrived in ED. jg7 22:39 Triage completed. hb 22:40 Damari Braun, RN is Primary Nurse. vc 22:40 Arm band placed on. EKG completed in triage. Results shown to MD. EKG completed in triage. Results shown to MD. 22:44 Derrick French MD is Attending Physician. rn 23:13 Inserted saline lock: 22 gauge in right forearm, using aseptic technique. Blood rv collected. 23:13 No provider procedures requiring assistance completed. rv 23:14 Patient has correct armband on for positive identification. Bed in low position. Call rv light in reach. Pulse ox on. NIBP on. 11/09 00:18 Chest Single View In Process Unspecified. EDMS 01:11 Soft Tissue Neck W/Contr In Process Unspecified. EDMS 02:08 Camille Sharma MD is Referral Physician. rn 02:30 IV discontinued, intact, bleeding controlled, No redness/swelling at site. Pressure rv dressing applied. 03:12 XRAY Chest (1 view) In Process Unspecified. EDMS Administered Medications: 11/08 22:55 Drug: Xopenex (3) 1.25 mg Route: Inhalation; rv 11/09 00:18 Follow up: Response: No adverse reaction; Marked relief of symptoms; Wheezing diminishedvc 11/08 23:00 Drug: Decadron - Dexamethasone 10 mg Route: IVP; Site: right forearm; rv 11/09 00:18 Follow up: Response: No adverse reaction; Marked relief of symptoms vc 11/08 23:00 Drug: NS 0.9% 1000 ml Route: IV; Rate: 1000 ml; Site: right forearm; rv 11/09 00:18 Follow up: IV Status: Completed infusion; IV Intake: 1000ml vc 11/08 23:00 Drug: Racemic EPINPHrine 0.5 ml Route: Inhalation; rv 11/09 00:17 Follow up: Response: No adverse reaction; Marked relief of symptoms vc Intake: 00:18 IV: 1000ml; Total: 1000ml. vc Outcome: 02:09 Discharge ordered by . rn 02:30 Discharged to home ambulatory, with family. rv 02:30 Condition: improved 02:30 Discharge instructions given to patient, Instructed on discharge instructions, follow up and referral plans. medication usage, Demonstrated understanding of instructions, follow-up care, medications, Prescriptions given X 2. 02:31 Patient left the ED. rv Signatures: Dispatcher [employer] EDMS Derrick French MD MD rn Baxter, Heather, RN RN hb Vicente, Ronaldo, RN RN Tessa CooneygDamari Tamayo RN RN vc
[2019-11-09 03:05] VITALS: TEMP 97.8
[2019-11-09 03:10] VITALS: BP 95/64; O2SAT 96
--- NOTE | 2019-11-09 08:51 | RAD REPORT ---
EXAM DESCRIPTION: Armando Single View11/09/2019 3:11 am CLINICAL HISTORY: cough COMPARISON: September 2019 FINDINGS: The lungs appear clear of acute infiltrate. The heart is normal size IMPRESSION: No acute abnormalities displayed
--- NOTE | 2019-11-10 11:08 | RAD REPORT ---
EXAM DESCRIPTION: CT - Soft Tissue Neck W/Contr - 11/09/2019 5:32 am CLINICAL HISTORY: The patient is 44 years old and is Female; DYSPNEA; STRIDOR TECHNIQUE: Axial computed tomography images of the neck with intravenous contrast. Sagittal and co ann-marie reformatted images were created and reviewed. This CT exam was performed using one or more of the following dose reduction techniques: automated exposure control, adjustment of the mA and/or k V according to patient size, and/or use of iterative reconstruction technique. DLP: 247 mGy*cm COMPARISON: Chest radiograph of the same day. FINDINGS: OROPHARYNX: Mild symmetric thickening of the tonsillar pillars. No abnormal enhancement pattern. No peritonsillar abscess. Mild thickening of the uvula and soft palate. Narrowing of the oropharyngeal airway. Parapharyngeal fat pad are preserved. HYPOPHARYNX: Unremarkable. LARYNX: Unremarkable. Normal epiglottis. TRACHEA: Unremarkable. RETROPHARYNGEAL SPACE: Unremarkable. SUBMANDIBULAR/PAROTID GLANDS: Unremarkable. Glands are normal in size. THYROID: Prior thyroidectomy. BONES/JOINTS: Straightening of cervical lordosis. No acute fracture. SOFT TISSUES: Unremarkable. VASCULATURE: No acute findings. LYMPH NODES: Multiple nonenlarged cervical lymph nodes. SINUSES: Paranasal sinuses are clear. MASTOID AIR CELLS: Mastoid air cells are well pneumatized. ORBITS: Globes and orbits are within normal limits. LUNG APICES: Apical chronic lung changes and right lung scarring. IMPRESSION: 1. Symmetrical prominence of the tonsillar pillars and thickening of the soft palate/u vula resulting in narrowing of the oropharyngeal airway. No abnormal enhancement or drainable fluid c ollection. No cervical lymphadenopathy. 2. Prior thyroidectomy 3. Apical chronic lung changes partially seen right lung scarring. Electronically signed by: Luis Orlando DO 11/09/2019 1:46 AM LANDS RESOURCE MANAGER Due to temporary technical issues with the PACS/Fluency reporting system, reports are being signed by the in house radiologist as a courtesy to ensure prompt reporting. The interpreting radiologist is f tomaszly responsible for the content of the report.
== END 2019-11-09 02:31 | disposition home or self-care (01) ==
LOC: ER 22:34
DX: R06.2 Wheezing (principal)
CPT/HCPCS: 36415; 70491; 71045; 80048; 83880; 85025; 96361; 96374; 99284; J1100; J7030; Q9967

== ENCOUNTER 2020-04-10 17:31 | Emergency (ER) | payer SELFPAY ==
--- OUTSIDE RECORDS SUMMARY | 2020-04-10 17:34 | XMS REPORT | Continuity of Care Document ---
:1975 Author Organization [facility] t Address [address] [place] [id number] Care Team Providers Name Role Phone Unavailable Unavailable Unavailable Problems This patient has no known problems. Allergies, Adverse Reactions, Alerts This patient has no known allergies or adverse reactions. Medications This patient has no known medications. Procedures This patient has no known procedures. Results This patient has no known results.
--- NOTE | 2020-04-10 19:51 | ER ---
Nurse's Notes [facility] Name: Grace Holder Age: 44 yrs Sex: Female : 1975 Arrival Date: 04/10/2020 Time: 17:34 Bed Waiting Private MD: Diagnosis: Presentation: 04/10 17:48 Chief complaint: Patient states: 1 week ago, I feel different, I feel down, My hands ca1 are cold. I checked my BP and it was low. Today, when I was watching TV my vision got blurry and I still feal very weak and dizzy. My heart is beating fast too. I am having chest pains and L arm pains since this morning, and has been worse 1 hr ago. Denies fever. 17:48 Method Of Arrival: Ambulatory ca1 18:05 Coronavirus screen: Proceed with normal triage. Patient denies a cough. Patient denies ca1 shortness of breath or difficulty breathing. Patient denies measured and/or subjective temperature greater than 100.4F prior to today's visit. Patient denies travel on a cruise ship or to a country the [facility] currently lists as an affected area. Patient denies contact with known and/or suspected case of COVID-19. Ebola Screen: Patient negative for fever greater than or equal to 101.5 degrees Fahrenheit, and additional compatible Ebola Virus Disease symptoms Patient denies exposure to infectious person. Patient denies travel to an Ebola-affected area in the 21 days before illness onset. No symptoms or risks identified at this time. Initial Sepsis Screen: Does the patient meet any 2 criteria? No. Patient's initial sepsis screen is negative. Does the patient have a suspected source of infection? No. Patient's initial sepsis screen is negative. Risk Assessment: Do you want to hurt yourself or someone else? Patient reports no desire to harm self or others. Onset of symptoms was April 10, 2020. 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 - Social history:: Smoking status: Patient denies any tobacco usage or history of. Vital Signs: 18:07 BP 98 / 68; Pulse 99; Resp 18 S; Temp 98.3(TE); Pulse Ox 99% on R/A; Weight 77.11 kg ca1 (R); Height 5 ft. 2 in. (157.48 cm) (R); 18:07 Body Mass Index 31.09 (77.11 kg, 157.48 cm) ca1 ED Course: 17:34 Patient arrived in ED. as 18:06 Triage completed. ca1 18:09 Arm band placed on right wrist. ca1 Administered Medications: No medications were administered Outcome: 19:50 Patient left the ED. ca1 Signatures: Guillermina Fields Cheryl RN RN ca1 Corrections: (The following items were deleted from the chart) 18:06 17:48 Chief complaint: Patient states: 1 week ago, I feel different, I feel down, My ca1 hands are cold. I checked my BP and it was low. Today, when I was watching TV my vision got blurry and I still feal very weak and dizzy. My heart is beating fast too. Denies fever. ca1 18:08 17:48 Chief complaint: Patient states: 1 week ago, I feel different, I feel down, My ca1 hands are cold. I checked my BP and it was low. Today, when I was watching TV my vision got blurry and I still feal very weak and dizzy. My heart is beating fast too. Denies fever. ca1
[2020-04-10 19:56] VITALS: BP 98/68; TEMP 98.3; O2SAT 99
== END 2020-04-10 19:50 | disposition left against medical advice (07) ==
LOC: ER 17:31
DX: Z53.21 Procedure and treatment not carried out due to patient leaving prior to being seen by health care provider (principal)
CPT/HCPCS: 93005; 99281

== ENCOUNTER 2020-09-12 11:39 | Emergency (ER) | payer SELFPAY ==
--- OUTSIDE RECORDS SUMMARY | 2020-09-12 11:41 | XMS REPORT | Continuity of Care Document ---
:1975 Author Organization [facility] t Address [address] [place] [address] Care Team Providers Name Role Phone Unavailable Unavailable Unavailable Problems This patient has no known problems. Allergies, Adverse Reactions, Alerts This patient has no known allergies or adverse reactions. Medications This patient has no known medications. Procedures This patient has no known procedures. Results This patient has no known results.
[2020-09-12 13:25] LABS: Absolute Lymphocytes (CBC) 1.1 K/uL (0.7-4.9); Basophils % 0.5 % (0-1.3); Hematocrit 41.8 % (36.0-45.0); Lymphocytes % 14.9 % (15.3-44.8); MPV 7.5 fL (7.6-11.3); RBC Red Blood Cell Count 4.94 M/uL (3.86-4.86)
[2020-09-12 13:28] LABS: Protime INR 0.98
--- NOTE | 2020-09-12 13:35 | RAD REPORT ---
EXAM DESCRIPTION: RAD - Chest Single View - 09/12/2020 1:28 pm CLINICAL HISTORY: CHEST PAIN, history of recent positive COVID test COMPARISON: Portable November 09, 2019 TECHNIQUE: AP portable chest image was obtained 09/12/2020 1:28 pm . FINDINGS: No dense mass or consolidation. No alveolar opacities present confirm a COVID-19 pneumonia . Interstitial pattern is not substantially different from comparison. Heart and vasculature are norm al. No measurable pleural effusion and no pneumothorax. No acute bony abnormality seen. No acute aort ic findings suspected. IMPRESSION: No acute cardiopulmonary process. Chest is not significantly different from November 09.
[2020-09-12 13:53] LABS: ALT/SGPT 28 U/L (12-78); AST/SGOT 13 U/L (15-37); Albumin 3.3 g/dL (3.4-5.0); Alkaline Phosphatase 98 U/L (45-117); BUN Blood Urea Nitrogen 11 mg/dL (7-18); Bicarbonate 27 mmol/L (21-32); Bilirubin Direct < 0.1 mg/dL (0-0.2); Bilirubin Total 0.3 mg/dL (0.2-1.0); Glucose Level 100 mg/dL (74-106); Magnesium 2.2 mg/dL (1.8-2.4); NT PRO-BNP 13 pg/mL (<125); Potassium 3.3 mmol/L (3.5-5.1); Protein, Total 7.3 g/dL (6.4-8.2); Sodium Level 142 mmol/L (136-145); Troponin (Emerg Dept Use Only) < 0.02 ng/mL (0.0-0.045)
[2020-09-12] MEDS ORDERED: CALCIUM GLUCONATE 1 GM IVPB 1 GM/50 ML BAG IV ONE (14:42)
--- NOTE | 2020-09-12 15:47 | EDPHYS ---
Physician Documentation [facility] Name: Graec Holder Age: 45 yrs Sex: Female : 1975 Arrival Date: 09/12/2020 Time: 11:41 Bed 6 Private MD: ED Physician Derrick French HPI: 09/12 11:41 This 45 yrs old Female presents to ER via Wheelchair with complaints of Chest jmm Pain, Covid 19+ (2 wks ago). 11:41 Onset: gradually. The pain does not radiate. Associated signs and symptoms: Pertinent jmm negatives: cough, shortness of breath, vomiting. The chest pain is described as aching, sharp. Modifying factors: The symptoms are alleviated by nothing. the symptoms are aggravated by nothing. This is a 45 year old female with a history o hypothyroidism that presents to the ED with complaints of left sided chest pain. Patient states the pain does not radiate. Worsened with deep inspiration. Patient was diagnosed with COVID 19 two weeks ago. Currently taking prednisone. Denies any shortness of breath. . 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 - Social history:: Smoking status: Patient denies any tobacco usage or history of. ROS: 11:41 Constitutional: Negative for fever, chills, and weight loss. jmm 11:41 Respiratory: Negative for shortness of breath, cough, wheezing, and pleuritic chest pain, Abdomen/GI: Negative for abdominal pain, nausea, vomiting, diarrhea, and constipation, Neuro: Negative for headache, weakness, numbness, tingling, and seizure. 11:41 Cardiovascular: Positive for chest pain. 11:41 All other systems are negative. Exam: 11:41 Constitutional: This is a well developed, well nourished patient who is awake, alert, jmm and in no acute distress. Head/Face: atraumatic. Eyes: EOMI, no conjunctival erythema appreciated ENT: Moist Mucus Membranes Neck: Trachea midline, Supple Chest/axilla: Normal chest wall appearance and motion. Cardiovascular: Regular rate and rhythm. No edema appreciated Respiratory: Normal respirations, no respiratory distress appreciated Abdomen/GI: Non distended, soft Back: Normal ROM Skin: General appearance color normal MS/ Extremity: Moves all extremities, no obvious deformities appreciated, no edema noted to the lower extremities Neuro: Awake and alert, normal gait Psych: Behavior is normal, Mood is normal, Patient is cooperative and pleasant 15:48 ECG was reviewed by the Attending Physician. [facility] Vital Signs: 12:12 BP 103 / 85; Pulse 93; Resp 16; Temp 98.3; Pulse Ox 99% on R/A; iw 13:53 BP 111 / 84; Pulse 72; Resp 15; Pulse Ox 99% ; jl7 14:30 BP 94 / 73; Pulse 79; Resp 17; Pulse Ox 99% on R/A; tw2 15:27 BP 101 / 70; Pulse 67; Resp 17; Pulse Ox 98% on R/A; tw2 MDM: 12:36 Patient medically screened. [facility] 15:45 Data reviewed: vital signs, nurses notes. Counseling: I had a detailed discussion with [facility] the patient and/or guardian regarding: the historical points, exam findings, and any diagnostic results supporting the discharge/admit diagnosis, lab results, radiology results, the need for outpatient follow up, to return to the emergency department if symptoms worsen or persist or if there are any questions or concerns that arise at home. ED course: Patient is alert and non toxic in appearance in the ED. No pneumonia, no pe suspected. Patient advised to follow up with pcp and otherwise given strict return precautions. Patient understood and agrees with the plan of care. . 09/12 12:34 Order name: Basic Metabolic Panel [facility] 09/12 12:34 Order name: CBC with Diff [facility] 09/12 12:34 Order name: LFT's; Complete Time: 13:57 [facility] 09/12 12:34 Order name: Magnesium; Complete Time: 13:57 [facility] 09/12 12:34 Order name: NT PRO-BNP; Complete Time: 13:57 [facility] 09/12 12:34 Order name: PT-INR; Complete Time: 13:29 [facility] 09/12 12:34 Order name: Troponin (emerg Dept Use Only); Complete Time: 13:57 [facility] 09/12 12:34 Order name: XRAY Chest (1 view); Complete Time: 13:37 [facility] 09/12 12:34 Order name: EKG; Complete Time: 12:36 [facility] 09/12 12:34 Order name: Cardiac monitoring; Complete Time: 13:23 [facility] 09/12 12:34 Order name: D-Dimer; Complete Time: 13:29 [facility] 09/12 12:35 Order name: Basic Metabolic Panel; Complete Time: 13:57 [facility] 09/12 12:35 Order name: CBC with Automated Diff; Complete Time: 13:29 [facility] 09/12 12:34 Order name: EKG - Nurse/Tech; Complete Time: 13:23 [facility] 09/12 12:34 Order name: IV Saline Lock; Complete Time: 13:23 [facility] 09/12 12:34 Order name: Labs collected and sent; Complete Time: 13:23 [facility] 09/12 12:34 Order name: O2 Per Protocol; Complete Time: 13:23 [facility] 09/12 12:34 Order name: O2 Sat Monitoring; Complete Time: 13:23 jmm EC:48 Rate is 72 beats/min. Rhythm is regular. QRS [place] is Normal. NM interval is normal. QRS jmm interval is normal. QT interval is normal. No Q waves. T waves are Normal. No ST changes noted. Reviewed by me. Administered Medications: 14:35 Drug: Calcium Gluconate 1 grams Route: IVPB; Infused Over: 60 mins; Site: right wrist; jl7 15:33 Follow up: Response: No adverse reaction; IV Status: Completed infusion; IV Intake: tw2 100ml Disposition: 16:26 Co-signature as Attending Physician, Derrick French MD. rn Disposition: 09/12/20 15:46 Discharged to Home. Impression: Chest pain, unspecified. - Condition is Stable. - Discharge Instructions: Nonspecific Chest Pain. - Medication Reconciliation Form, Thank You Letter, Antibiotic Education, Prescription Opioid Use form. - Follow up: Private Physician; When: 2 - 3 days; Reason: Recheck today's complaints, Continuance of care, Re-evaluation by your physician. Signatures: Dispatcher [employer] EDMS Aaron Hammond PA PA jmm Williams, Irene, RN RN iw Derrick French MD MD rn Wise, Tara, RN RN tw2 Josep Olivera RN RN jl7 Corrections: (The following items were deleted from the chart) 15:58 15:46 09/12/2020 15:46 Discharged to Home. Impression: Chest pain, unspecified. tw2 Condition is Stable. Forms are Medication Reconciliation Form, Thank You Letter, Antibiotic Education, Prescription Opioid Use. Follow up: Private Physician; When: 2 - 3 days; Reason: Recheck today's complaints, Continuance of care, Re-evaluation by your physician. vahe
--- NOTE | 2020-09-12 15:47 | ER ---
Nurse's Notes [facility] Name: Grace Holder Age: 45 yrs Sex: Female : 1975 Arrival Date: 09/12/2020 Time: 11:41 Bed 6 Private MD: Diagnosis: Chest pain, unspecified Presentation: 09/12 12:12 Chief complaint: Patient states: tested positive for COVID on 09-03 at [facility], iw takes calcium every day bc she has a hx of thyroid/parathyroid cancer, feels like her heart is beating fast , and is feeling like her muscles are cramping up, and feels pressure in her head. Coronavirus screen: Client presents with at least one sign or symptom that may indicate coronavirus-19. Standard/surgical mask placed on the client. Provider contacted for isolation considerations. Client reports previous positive COVID test result. Ebola Screen: Patient negative for fever greater than or equal to 101.5 degrees Fahrenheit, and additional compatible Ebola Virus Disease symptoms Patient denies exposure to infectious person. Patient denies travel to an Ebola-affected area in the 21 days before illness onset. No symptoms or risks identified at this time. Initial Sepsis Screen: Does the patient meet any 2 criteria? No. Patient's initial sepsis screen is negative. Does the patient have a suspected source of infection? No. Patient's initial sepsis screen is negative. Risk Assessment: Do you want to hurt yourself or someone else? Patient reports no desire to harm self or others. Onset of symptoms was September 10, 2020. 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 - Social history:: Smoking status: Patient denies any tobacco usage or history of. Screenin:48 Abuse screen: Denies threats or abuse. Denies injuries from another. Nutritional jl7 screening: No deficits noted. Tuberculosis screening: No symptoms or risk factors identified. Fall Risk IV access (20 points). Total Ozuna Fall Scale indicates No Risk (0-24 pts). Assessment: 13:48 General: Appears in no apparent distress. uncomfortable, Behavior is calm, cooperative, jl7 appropriate for age. Pain: Complains of pain in anterior aspect of left upper chest Pain does not radiate. Pain currently is 0 out of 10 on a pain scale. at worst was 3 out of 10 on a pain scale. Quality of pain is described as crushing, Pain began 1 day ago. Is intermittent, lasting a few seconds. Neuro: Level of Consciousness is awake, alert, obeys commands, Oriented to person, place, time, situation. Cardiovascular: Patient's skin is warm and dry. Respiratory: Airway is patent Respiratory effort is even, unlabored, Respiratory pattern is regular, symmetrical. GI: No signs and/or symptoms were reported involving the gastrointestinal system. : No signs and/or symptoms were reported regarding the genitourinary system. Derm: Skin is pink, warm \T\ dry. 14:40 Reassessment: Patient appears in no apparent distress at this time. No changes from tw2 previously documented assessment. Patient and/or family updated on plan of care and expected duration. Pain level reassessed. Patient is alert, oriented x 3, equal unlabored respirations, skin warm/dry/pink. 15:49 Reassessment: provider at bedside at this time going over results and discharge plan. tw2 15:49 Reassessment: Patient appears in no apparent distress at this time. No changes from tw2 previously documented assessment. Patient and/or family updated on plan of care and expected duration. Pain level reassessed. Patient is alert, oriented x 3, equal unlabored respirations, skin warm/dry/pink. 15:58 Reassessment: Patient appears in no apparent distress at this time. No changes from tw2 previously documented assessment. Patient and/or family updated on plan of care and expected duration. Pain level reassessed. Patient is alert, oriented x 3, equal unlabored respirations, skin warm/dry/pink. Vital Signs: 12:12 BP 103 / 85; Pulse 93; Resp 16; Temp 98.3; Pulse Ox 99% on R/A; iw 13:53 BP 111 / 84; Pulse 72; Resp 15; Pulse Ox 99% ; jl7 14:30 BP 94 / 73; Pulse 79; Resp 17; Pulse Ox 99% on R/A; tw2 15:27 BP 101 / 70; Pulse 67; Resp 17; Pulse Ox 98% on R/A; tw2 ED Course: 11:41 Patient arrived in ED. bg2 12:15 Triage completed. iw 12:15 Arm band placed on. iw 12:18 Aaron Hammond PA is PHCP. jmm 12:18 Derrick French MD is Attending Physician. jmm 12:53 Josep Olivera RN is Primary Nurse. jl7 13:00 Initial lab(s) drawn, by me, sent to lab. EKG done, by ED staff, reviewed by Aaron CELESTIN. Inserted saline lock: 20 gauge in right wrist, using aseptic technique. Blood collected. 13:00 Patient maintains SpO2 saturation greater than 95% on room air. jl7 13:28 XRAY Chest (1 view) In Process Unspecified. EDMS 13:48 Patient has correct armband on for positive identification. Placed in gown. Bed in low jl7 position. Call light in reach. Side rails up X2. quality assurance monitor final on. Pulse ox on. NIBP on. Warm blanket given. 15:53 No provider procedures requiring assistance completed. IV discontinued, intact, tw2 bleeding controlled, No redness/swelling at site. Pressure dressing applied. Administered Medications: 14:35 Drug: Calcium Gluconate 1 grams Route: IVPB; Infused Over: 60 mins; Site: right wrist; jl7 15:33 Follow up: Response: No adverse reaction; IV Status: Completed infusion; IV Intake: tw2 100ml Intake: 15:33 IV: 100ml; Total: 100ml. tw2 Outcome: 15:46 Discharge ordered by . [facility] 15:53 Discharged to home ambulatory. tw2 15:53 Condition: stable 15:53 Discharge instructions given to patient, significant other, Instructed on discharge instructions, follow up and referral plans. no drinking with medication, no driving heavy equipment, Demonstrated understanding of instructions, follow-up care, medications. 15:58 Patient left the ED. tw2 Signatures: Dispatcher [employer] Aaron Adams PA PA jmm Williams, Irene, RN RN iw Nikki Shaw 2 Nandini Espino RN RN tw2 Josep Olivera RN RN jl7
[2020-09-12 19:41] VITALS: TEMP 98.3
[2020-09-12 19:46] VITALS: BP 101/70; O2SAT 98
== END 2020-09-12 15:58 | disposition home or self-care (01) ==
LOC: ER 11:39
DX: R07.9 Chest pain, unspecified (principal); Z86.19 Personal history of other infectious and parasitic diseases; Z85.850 Personal history of malignant neoplasm of thyroid; E03.9 Hypothyroidism, unspecified
CPT/HCPCS: 36415; 71045; 80048; 80076; 83735; 83880; 84484; 85025; 85379; 85610; 93005; 96365; 99285; J0610

== ENCOUNTER 2021-01-04 00:12 | Inpatient (IN) | payer SELFPAY ==
--- OUTSIDE RECORDS SUMMARY | 2021-01-04 00:14 | XMS REPORT | Continuity of Care Document ---
:1975 Author Organization [facility] t Address [address] [place] [address] Care Team Providers Name Role Phone Doctor Unassigned, [place] Attending Clinician Unavailable Problems This patient has no known problems. Allergies, Adverse Reactions, Alerts This patient has no known allergies or adverse reactions. Medications This patient has no known medications. Procedures This patient has no known procedures. Encounters Start End Encounter Admission Attending Care Care Encounter Source Date/Time Date/Time Type Type Clinicians Facility Department ID Orders Doctor TASNEEM [id number] 00:00:00 00:00:00 Only Unassigned, ETHAN [id number] [place] [facility] [id number] Results This patient has no known results.
[2021-01-04 01:08] LABS: Absolute Lymphocytes (CBC) 2.2 K/uL (0.7-4.9); Basophils % 1.1 % (0-1.3); Hematocrit 37.7 % (36.0-45.0); Lymphocytes % 35.1 % (15.3-44.8); MPV 8.4 fL (7.6-11.3); RBC Red Blood Cell Count 4.42 M/uL (3.86-4.86)
[2021-01-04 01:09] LABS: Protime INR 0.94
[2021-01-04 01:22] LABS: ALT/SGPT 24 U/L (12-78); AST/SGOT 14 U/L (15-37); Albumin 3.2 g/dL (3.4-5.0); Alkaline Phosphatase 72 U/L (45-117); BUN Blood Urea Nitrogen 12 mg/dL (7-18); Bicarbonate 26 mmol/L (21-32); Bilirubin Direct < 0.1 mg/dL (0-0.2); Bilirubin Total 0.2 mg/dL (0.2-1.0); Glucose Level 78 mg/dL (74-106); Magnesium 2.2 mg/dL (1.8-2.4); NT PRO-BNP 43 pg/mL (<125); Potassium 3.2 mmol/L (3.5-5.1); Protein, Total 6.9 g/dL (6.4-8.2); Sodium Level 143 mmol/L (136-145); Troponin (Emerg Dept Use Only) < 0.02 ng/mL (0.0-0.045)
--- NOTE | 2021-01-04 02:32 | ER ---
Nurse's Notes [facility] Name: Grace Holder Age: 45 yrs Sex: Female : 1975 Arrival Date: 01/04/2021 Time: 00:13 Bed 2 Private MD: Diagnosis: Chest pain, unspecified Presentation: 01/04 00:28 Chief complaint: Patient states: CHEST PAIN THAT STARTED AN HOUR AGO AND BACK PAIN THAT wh STARTED 2 DAYS AGO. Coronavirus screen: Client denies travel out of the [place] in the last 14 days. At this time, the client does not indicate any symptoms associated with coronavirus-19. Ebola Screen: Patient negative for fever greater than or equal to 101.5 degrees Fahrenheit, and additional compatible Ebola Virus Disease symptoms Patient denies exposure to infectious person. Risk Assessment: Do you want to hurt yourself or someone else? Patient reports no desire to harm self or others. Onset of symptoms was January 04, 2021. 00:28 Method Of Arrival: Ambulatory 00:28 Acuity: IRVIN 3 00:54 Initial Sepsis Screen: Does the patient meet any 2 criteria? No. Patient's initial sepsis screen is negative. Does the patient have a suspected source of infection? No. Patient's initial sepsis screen is negative. 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 - Social history:: Smoking status: Patient/guardian denies using Patient/guardian denies using alcohol, street drugs, The patient lives with family. - Family history:: not pertinent. Screenin:54 Abuse screen: Denies threats or abuse. Denies injuries from another. Nutritional screening: No deficits noted. Tuberculosis screening: No symptoms or risk factors identified. Fall Risk None identified. Assessment: 00:53 General: Appears in no apparent distress. Behavior is calm, cooperative, appropriate wh for age. Pain: Complains of pain in CHEST AND BACK Pain does not radiate. Pain currently is 5 out of 10 on a pain scale. Quality of pain is described as stabbing, Pain began 1 hour ago. Neuro: Level of Consciousness is awake, alert, obeys commands, Oriented to person, place, time, situation, Appropriate for age. Cardiovascular: Reports chest pain, Heart tones S1 S2 Rhythm is regular. Respiratory: Airway is patent Respiratory effort is even, unlabored, Respiratory pattern is regular, symmetrical, Breath sounds are clear bilaterally. GI: Abdomen is flat, non-distended. : No signs and/or symptoms were reported regarding the genitourinary system. EENT: No signs and/or symptoms were reported regarding the EENT system. Derm: Skin is intact, is healthy with good turgor, Skin is pink, warm \T\ dry. normal. Musculoskeletal: Circulation, motion, and sensation intact. 02:30 Reassessment: Patient appears in no apparent distress at this time. No changes from previously documented assessment. Patient and/or family updated on plan of care and expected duration. Pain level reassessed. Patient is alert, oriented x 3, equal unlabored respirations, skin warm/dry/pink. 07:00 Reassessment: Patient appears in no apparent distress at this time. Patient and/or 2 family updated on plan of care and expected duration. Pain level reassessed. Patient is alert, oriented x 3, equal unlabored respirations, skin warm/dry/pink. 07:31 Reassessment: Patient appears in no apparent distress at this time. Patient and/or tw2 family updated on plan of care and expected duration. Pain level reassessed. Patient is alert, oriented x 3, equal unlabored respirations, skin warm/dry/pink. 19:15 Reassessment: Patient appears in no apparent distress at this time. Patient and/or family updated on plan of care and expected duration. Pain level reassessed. Patient is alert, oriented x 3, equal unlabored respirations, skin warm/dry/pink. Vital Signs: 00:54 BP 129 / 93; Pulse 66; Resp 18; Temp 98.2; Pulse Ox 99% ; Weight 72.57 kg; Height 5 ft. 2 in. (157.48 cm); Pain 5/10; 02:30 BP 111 / 68; Pulse 57; Resp 18; Pulse Ox 100% on R/A; wh 07:00 BP 117 / 70; Pulse 117; Resp 28; Pulse Ox 99% on R/A; tw2 00:54 Body Mass Index 29.26 (72.57 kg, 157.48 cm) ED Course: 00:13 Patient arrived in ED. cl3 00:14 Arm band placed on. sg 00:28 Christopher Johnson MD is Attending Physician. ma2 00:28 Tracy Rodriguez RN is Primary Nurse. 00:33 Triage completed. 00:55 Patient has correct armband on for positive identification. Placed in gown. Bed in low wh position. Call light in reach. Side rails up X 1. satellite project site monitor on. Pulse ox on. NIBP on. Sitter at bedside. 00:55 Inserted saline lock: 20 gauge in right wrist, using aseptic technique. Blood wh collected. Patient maintains SpO2 saturation greater than 95% on room air. 01:18 XRAY Chest (1 view) In Process Unspecified. EDMS 02:31 Christopher Arrieta MD is Hospitalizing Provider. [facility] 02:49 No provider procedures requiring assistance completed. Patient admitted, IV remains in place. 07:35 Primary Nurse role handed off by Tracy Rodriguez RN 10:35 Camille Reid RN is Primary Nurse. 19:02 Primary Nurse role handed off by Camille Reid RN Administered Medications: No medications were administered Outcome: 02:31 Decision to Hospitalize by Provider. ma2 02:49 Admitted to ER Hold. Please see [facility] for further documentation. 02:49 Condition: stable 02:49 Instructed on the need for admit. 19:32 Patient left the ED. mg2 19:33 Admitted to Med/surg accompanied by tech, via wheelchair, room 205, with chart, Report mg2 called to LEVY Quevedo 19:33 Condition: stable 19:33 Instructed on the need for admit, Demonstrated understanding of instructions. Signatures: Dispatcher [employer] EDND Cece Hernandez Camille Reid RN RN sv Gay, Steven, RN RN sg Wise, Tara, RN RN tw2 Jennifer, Tracy, RN RN wh Christopher Johnson MD MD ma2 Ilya Dee, RN RN mg2 Lyubov Pino cl3
--- NOTE | 2021-01-04 02:32 | EDPHYS ---
Physician Documentation [facility] Name: Grace Holder Age: 45 yrs Sex: Female : 1975 Arrival Date: 01/04/2021 Time: 00:13 Bed 2 Private MD: ED Physician Christopher Johnson HPI: 01/04 02:18 This 45 yrs old Female presents to ER via Ambulatory with complaints of Chest ma2 Pain. 02:18 The patient or guardian reports chest pain that is located primarily in the substernal ma2 area. Onset: gradually, 1 day(s) ago. Associated signs and symptoms: Pertinent negatives: cough, headache, lightheadedness, near syncope, shortness of breath, syncope. Severity of pain: At its worst the pain was moderate in the emergency department the pain is unchanged. The patient has not experienced similar symptoms in the past. 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 - Social history:: Smoking status: Patient/guardian denies using Patient/guardian denies using alcohol, street drugs, The patient lives with family. - Family history:: not pertinent. ROS: 02:18 Constitutional: Negative for fever, chills, and weight loss, Cardiovascular: Negative ma2 for chest pain, palpitations, and edema, Respiratory: Negative for shortness of breath, cough, wheezing, and pleuritic chest pain, Abdomen/GI: Negative for abdominal pain, nausea, diarrhea, and constipation, Back: Negative for injury and pain, Skin: Negative for injury, rash, and discoloration, Neuro: Negative for headache, weakness, numbness, tingling, and seizure, Psych: Negative for depression, anxiety, suicide ideation, homicidal ideation, and hallucinations, Allergy/Immunology: Negative for hives, rash, and allergies. 02:18 All other systems are negative. ma2 Exam: 02:18 Constitutional: This is a well developed, well nourished patient who is awake, alert, ma2 and in no acute distress. Head/Face: Normocephalic, atraumatic. Eyes: Pupils equal round and reactive to light, extra-ocular motions intact. Lids and lashes normal. Conjunctiva and sclera are non-icteric and not injected. Cornea within normal limits. Periorbital areas with no swelling, redness, or edema. ENT: Nares patent. No nasal discharge, no septal abnormalities noted. Tympanic membranes are normal and external auditory canals are clear. Oropharynx with no redness, swelling, or masses, exudates, or evidence of obstruction, uvula midline. Mucous membranes moist. Neck: Trachea midline, no thyromegaly or masses palpated, and no cervical lymphadenopathy. Supple, full range of motion without nuchal rigidity, or vertebral point tenderness. No Meningismus. Chest/axilla: Normal chest wall appearance and motion. Nontender with no deformity. No lesions are appreciated. Cardiovascular: Regular rate and rhythm with a normal S1 and S2. No gallops, murmurs, or rubs. Normal PMI, no JVD. No pulse deficits. Respiratory: Lungs have equal breath sounds bilaterally, clear to auscultation and percussion. No rales, rhonchi or wheezes noted. No increased work of breathing, no retractions or nasal flaring. Abdomen/GI: Soft, non-tender, with normal bowel sounds. No distension or tympany. No guarding or rebound. No evidence of tenderness throughout. Skin: Warm, dry with normal turgor. Normal color with no rashes, no lesions, and no evidence of cellulitis. MS/ Extremity: Pulses equal, no cyanosis. Neurovascular intact. Full, normal range of motion. Neuro: Awake and alert, GCS 15, oriented to person, place, time, and situation. Cranial nerves II-XII grossly intact. Motor strength 5/5 in all extremities. Sensory grossly intact. Cerebellar exam normal. Normal gait. Vital Signs: 00:54 BP 129 / 93; Pulse 66; Resp 18; Temp 98.2; Pulse Ox 99% ; Weight 72.57 kg; Height 5 ft. 2 in. (157.48 cm); Pain 5/10; 02:30 BP 111 / 68; Pulse 57; Resp 18; Pulse Ox 100% on R/A; wh 07:00 BP 117 / 70; Pulse 117; Resp 28; Pulse Ox 99% on R/A; tw2 00:54 Body Mass Index 29.26 (72.57 kg, 157.48 cm) MDM: 00:28 Patient medically screened. [facility] 02:18 Differential diagnosis: abnormal EKG, cholecystitis, costochondritis, gastroesophageal ma2 reflux disease (GERD), pancreatitis, stable angina. HEART Score: History:. The patient was given aspirin in the Emergency Department. Data reviewed: vital signs, nurses notes, EMS record. Counseling: I had a detailed discussion with the patient and/or guardian regarding: the historical points, exam findings, and any diagnostic results supporting the discharge/admit diagnosis, the presence of at least one elevated blood pressure reading (>120/80) during this emergency department visit, the need for further work-up and treatment in the hospital. 01/04 00:28 Order name: Basic Metabolic Panel [facility] 01/04 00:28 Order name: CBC with Diff [facility] 01/04 00:28 Order name: LFT's [facility] 01/04 00:28 Order name: Magnesium [facility] 01/04 00:28 Order name: NT PRO-BNP [facility] 01/04 00:28 Order name: PT-INR; Complete Time: 02:11 [facility] 01/04 00:28 Order name: Troponin (emerg Dept Use Only); Complete Time: 02:11 [facility] 01/04 00:29 Order name: Basic Metabolic Panel; Complete Time: 02:11 [facility] 01/04 00:29 Order name: CBC with Automated Diff; Complete Time: 02:11 [facility] 01/04 00:29 Order name: Liver (Hepatic) Function; Complete Time: 02:11 [facility] 01/04 00:29 Order name: Magnesium; Complete Time: 02:11 [facility] 01/04 00:29 Order name: NT PRO-BNP; Complete Time: 02:11 [facility] 01/04 02:52 Order name: Urine Dipstick--Ancillary (enter results) [facility] 01/04 02:52 Order name: Urine --Ancillary (enter results) [facility] 01/04 00:28 Order name: XRAY Chest (1 view) [facility] 01/04 00:28 Order name: EKG; Complete Time: 00:29 [facility] 01/04 00:28 Order name: Cardiac monitoring; Complete Time: 00:56 [facility] 01/04 00:28 Order name: EKG - Nurse/Tech; Complete Time: 00:56 [facility] 01/04 00:28 Order name: IV Saline Lock; Complete Time: 00:56 [facility] 01/04 00:28 Order name: Labs collected and sent; Complete Time: 00:56 [facility] 01/04 00:28 Order name: O2 Per Protocol; Complete Time: 00:56 [facility] 01/04 00:28 Order name: O2 Sat Monitoring; Complete Time: 00:56 [facility] 01/04 05:23 Order name: SARS-COV-2 RT PCR [facility] 01/04 05:36 Order name: Troponin I [facility] 01/04 07:33 Order name: Lipid Profile [facility] 01/04 08:09 Order name: Hemoglobin A1c [facility] 01/04 13:23 Order name: Diet Heart Healthy; Complete Time: 13:23 01/04 13:44 Order name: Troponin I [facility] 01/04 18:07 Order name: Calcium Level [facility] 01/04 00:28 Order name: Urine Dipstick-Ancillary (obtain specimen); Complete Time: 02:48 ma2 Administered Medications: No medications were administered Disposition: 01/04/21 02:31 Hospitalization ordered by Christopher Arrieta for Observation. Preliminary diagnosis is Chest pain, unspecified. - Bed requested for Telemetry/MedSurg (observation). - Status is Observation. mg2 - Condition is Stable. - Problem is new. - Symptoms are unchanged. Signatures: Dispatcher [employer] [facility] Cece Hernandez Steven, RN RN Estefany Chavez RN RN Tracy Rodriguez RN RN Christopher Johnson MD MD [facility] Ilya Dee RN RN mg2 Corrections: (The following items were deleted from the chart) 02:46 02:31 Hospitalization Ordered by Christopher Arrieta MD for Observation. Preliminary cg diagnosis is Chest pain, unspecified. Bed requested for Telemetry/MedSurg (Inpatient). Status is Observation. Condition is Stable. Problem is new. Symptoms are unchanged. ma2 04:03 02:57 CORONAVIRUS+MR.LAB.BRZ ordered. EDMS EDMS 18:42 02:46 01/04/2021 02:31 Hospitalization Ordered by Christopher Arrieta MD for Observation. bd Preliminary diagnosis is Chest pain, unspecified. Bed requested for [facility] ER HOLD. Status is Observation. Condition is Stable. Problem is new. Symptoms are unchanged. cg 19:32 18:42 01/04/2021 02:31 Hospitalization Ordered by Christopher Arrieta MD for Observation. mg2 Preliminary diagnosis is Chest pain, unspecified. Bed requested for Telemetry/MedSurg (observation). Status is Observation. Condition is Stable. Problem is new. Symptoms are unchanged. bd
[2021-01-04 03:35] LABS: Urine Blood NEGATIVE (NEG); Urine Glucose NEGATIVE (NEG); Urine Protein NEGATIVE (NEG); Urine Specific Gravity 1.025 (1.005-1.030)
[2021-01-04 04:32] VITALS: BMI 29.2
[2021-01-04] MEDS ORDERED: ALBUTEROL 2.5 MG/3 ML NEB SOL NEB PRN (04:37)
[2021-01-04] MEDS ORDERED: ACETAMINOPHEN 500 MG TAB PO PRN (04:37)
[2021-01-04] MEDS ORDERED: ONDANSETRON 4 MG/2 ML VIAL IV PRN (04:37)
--- NOTE | 2021-01-04 05:50 | P.HP ---
Certification for Inpatient Patient admitted to: Observation With expected LOS: <2 Midnights Patient will require the following post-hospital care: None Practitioner: I am a practitioner with admitting privileges, knowledge of patient current condition, hospital course, and medical plan of care. Services: Services provided to patient in accordance with Admission requirements found in Title 42 Section 412.3 of the Code of Federal Regulations <Jermaine Matias Jose C - Last Filed: 01/04/21 05:45> Patient History Date of Service: 01/04/21 Reason for admission: chest pain rule out History of Present Illness: Ms. Holder is a 45 yo female with history of thyroid cancer s/p thyroidectomy here today for 2 weeks of progressive pleuritic pain and one episode of chest pain over night. Two weeks ago, she started having pleuritic pain, cough, SOB, OROPEZA, wheezing, palpitations, and chills. The pain is worse when she lies back. She has been using her albuterol inhaler 2-3x a day. She denies fever, sputum production, and hemoptysis. Tonight at 1030pm she had stabbing left sided chest pain radiating to her left arm, now resolved. She had COVID in August with SOB for 1.5 months, was not hospitalized. She saw a doctor in [facility] around that same time who gave her the albuterol inhaler. Patient denies diagnosis of asthma. Per PCP her symptoms are related to allergies. K 3.2. Troponin <0.02. - Past Medical/Surgical History Has patient received pneumonia vaccine in the past: No Diabetic: No -: Thyroid Cancer -: Hypothyroid -: Thyroidectomy -: Parathyroidectomy -: Section -: Cholecystectomy - Family History Father Notes: no medical hx Mother Notes: Mother when pt was born - Social History Smoking Status: Never smoker Alcohol use: No CD- Drugs: No Caffeine use: No Place of Residence: Home <Jermaine Matias - Last Filed: 01/04/21 05:45> Date of Service: 01/04/21 <Christopher Arrieta - Last Filed: 01/11/21 04:04> Allergies No Known Allergies Allergy (Unverified 07/15/18 07:48) Home Medications: Calcium Carbonate [Calcium] 1,500 mg PO DAILY 07/15/18 Levothyroxine Sodium [Synthroid] 150 mcg PO DAILY 6PM 07/15/18 calcitrioL [Rocaltrol] 2 cap PO DAILY 07/15/18 Rosuvastatin [Crestor] 10 mg PO BEDTIME #30 tab 01/05/21 predniSONE [Deltasone] 20 mg PO BID #7 tab 01/05/21 Review of Systems General: Chills, As per HPI Eyes: Unremarkable ENT: Unremarkable Respiratory: Cough, Shortness of Breath, SOB with Excertion, Pleuritic Pain, Wheezing, As per HPI Cardiovascular: Chest Pain, As per HPI Gastrointestinal: Unremarkable Genitourinary: Unremarkable Musculoskeletal: Unremarkable Integumentary: Unremarkable Neurological: Unremarkable Lymphatics: Unremarkable <Jermaine Matias - Last Filed: 01/04/21 05:45> Physical Examination - Vital Signs Temperature: 98.2 F Blood Pressure: 115/81 Pulse: 75 Respirations: 16 Pulse Ox (%): 100 - Physical Exam General: Alert, In no apparent distress, Oriented x3, Cooperative HEENT: Atraumatic, Normocephalic, PERRLA, Mucous membr. moist/pink, EOMI, Sclerae nonicteric Neck: Supple, 2+ carotid pulse no bruit, JVD not distended, No Thyromegaly, No LAD Respiratory: Diminished, Expiratory wheezes Cardiovascular: No edema, Normal pulses, Regular rate/rhythm, Normal S1 S2, No gallops, No rubs, No murmurs Capillary refill: <2 Seconds Gastrointestinal: Normal bowel sounds, Soft and benign, Non-distended, No ascites, No tenderness, No masses, No rebound, No guarding Musculoskeletal: No clubbing, No swelling, No contractures, No erythema, No tenderness, No warmth Integumentary: No rashes, No breakdown, No significant lesion, No tenderness/swelling, No erythema, No warmth, No cyanosis Neurological: Normal gait, Normal speech, Normal strength at 5/5 x4 extr, Normal tone, Sensation intact, Cranial nerves 3-12 intact, Normal affect Lymphatics: No axilla or inguinal lymphadenopathy - Studies Laboratory Data (last 24 hrs) 01/04/21 00:50: PT 10.8, INR 0.94 01/04/21 00:50: WBC 6.40, Hgb 12.4, Hct 37.7, Plt Count 250 01/04/21 00:50: Sodium 143, Potassium 3.2 L, BUN 12, Creatinine 0.73, Glucose 78, Magnesium 2.2, Total Bilirubin 0.2, AST 14 L, ALT 24, Alkaline Phosphatase 72 <Jermaine Matias - Last Filed: 01/04/21 05:45> Assessment and Plan - Problems (Diagnosis) (1) Chest pain Status: Acute Plan: will trend troponins. patient without history of HTN, HLD, DM. no family history of heart disease. lipid panel, A1c pending. Qualifiers: Chest pain type: unspecified Qualified Code(s): R07.9 - Chest pain, unspecified (2) Shortness of breath Status: Acute Plan: schedule breathing treatments, IV steroids, O2 as needed. no fever or leukocytosis. may be lingering effects of COVID vs asthma exacerbation. will continue to monitor. (3) History of thyroid cancer Status: Chronic Plan: reconcile and continue home medications Discharge Plan: Home Plan to discharge in: 24 Hours - Advance Directives Does patient have a Living Will: No Does patient have a Durable POA for Healthcare: No - Code Status/Comfort Care Code Status Assessed: Yes (full code) Critical Care: No Time Spent Managing Pts Care (In Minutes): 70 <Jermaine Matias - Last Filed: 01/04/21 05:45> Date of Service: 01/04/21 Patient is a 45-year-old female who was admitted to the hospital for chest pain. She was ruled out for acute coronary syndrome. Patient current symptoms have resolved. At the time she is stable for discharge with outpatient followup. <Christopher Arrieta - Last Filed: 01/11/21 04:04>
--- NOTE | 2021-01-04 06:20 | EKG ---
Test Date: 2021-01-03 Test Time: 23:40:43 Will Call Order Clerk: MEASUREMENT RESULTS: Intervals: Rate: 73 SD: 134 QRSD: 72 QT: 388 QTc: 427 [place]: P: 42 SD: 134 QRS: 77 T: 71 INTERPRETIVE STATEMENTS: Normal sinus rhythm Normal ECG Compared to ECG 09/12/2020 13:13:19 No significant changes Electronically Signed On 01-04-21 06:19:10 CDT by Dixon Segovia
[2021-01-04] MEDS ORDERED: POTASSIUM CL SA 10 MEQ TAB PO ONE ×2 (07:41→09:00)
[2021-01-04] MEDS ORDERED: METHYLPREDNISOLONE 40 MG INJ ONE ×2 (07:42→16:25)
[2021-01-04] MEDS ORDERED: ENOXAPARIN 40 MG/0.4 ML SQ ONE (07:42)
[2021-01-04] MEDS: ENOXAPARIN 40 MG/0.4 ML SQ SCH (07:44)
[2021-01-04] MEDS: METHYLPREDNISOLONE 40 MG INJ IV SCH ×2 (07:45→16:14)
--- NOTE | 2021-01-04 07:53 | RAD REPORT ---
EXAM DESCRIPTION: RAD - Chest Single View - 01/04/2021 1:18 am CLINICAL HISTORY: CHEST PAIN COMPARISON: September 2020 TECHNIQUE: AP portable chest image was obtained 01/04/2021 1:18 am . FINDINGS: No focal mass or consolidation. Interstitial pattern matches comparison. Right pericardial fat pad is present and stable. Heart and vasculature are normal. No measurable pleural effusion and no pneumothorax. No acute bony abnormality seen. No acute aortic findings suspected. IMPRESSION: No acute cardiopulmonary process. No significant change from comparison study.
[2021-01-04] MEDS ORDERED: predniSONE 20 MG TAB PO SCH (09:00)
[2021-01-04] MEDS ORDERED: INFLUENZA VACCINE (for 3y+) 0.5 ML DOSE IMVAC ONE (10:00)
[2021-01-05] MEDS: METHYLPREDNISOLONE 40 MG INJ IV SCH ×2 (00:14→09:29)
[2021-01-05 06:20] LABS: ALT/SGPT 26 U/L (12-78); AST/SGOT 15 U/L (15-37); Albumin 3.2 g/dL (3.4-5.0); Alkaline Phosphatase 73 U/L (45-117); BUN Blood Urea Nitrogen 17 mg/dL (7-18); Bicarbonate 23 mmol/L (21-32); Bilirubin Total 0.3 mg/dL (0.2-1.0); Glucose Level 137 mg/dL (74-106); Magnesium 2.2 mg/dL (1.8-2.4); Potassium 3.9 mmol/L (3.5-5.1); Protein, Total 7.3 g/dL (6.4-8.2); Sodium Level 140 mmol/L (136-145)
[2021-01-05 07:40] LABS: Absolute Lymphocytes (CBC) 0.9 K/uL (0.7-4.9); Basophils % 0.2 % (0-1.3); Lymphocytes % 7.2 % (15.3-44.8); MPV 8.6 fL (7.6-11.3); RBC Red Blood Cell Count 4.48 M/uL (3.86-4.86)
[2021-01-05 08:29] VITALS: O2SAT 97
[2021-01-05 08:39] LABS: Blood Morphology Comment NOT SEEN (NOT SEEN); Platelet Estimate ADEQ
[2021-01-05] MEDS: ENOXAPARIN 40 MG/0.4 ML SQ SCH (09:29)
[2021-01-05 12:14] VITALS: BP 106/68; TEMP 97.8
--- NOTE | 2021-01-11 04:05 | P.DS ---
Discharge Date: 01/05/21 Disposition: ROUTINE DISCHARGE Discharge Condition: GOOD Reason for Admission: chest pain rule out Brief History of Present Illness: Patient is a 45-year-old female who came to the hospital with chest discomfort. Pain was in the sternal region. Patient did not have any radiation. Patient was admitted to the hospital for observation. Hospital Course: Serial troponins and EKG were unremarkable. At this time, patient is stable for discharge with outpatient follow up. Vital Signs/Physical Exam: Temp Pulse Resp BP Pulse Ox 97.8 F 81 16 106/68 98 01/05/21 12:00 01/05/21 12:00 01/05/21 12:00 01/05/21 12:00 01/05/21 12:00 General: Alert, In no apparent distress, Oriented x3 Laboratory Data at Discharge: WBC 12.40 K/uL (4.3-10.9) H D 01/05/21 06:43 Hgb 12.6 g/dL (12.0-15.0) 01/05/21 06:43 Hct 38.0 % (36.0-45.0) 01/05/21 06:43 Plt Count 275 K/uL (152-406) 01/05/21 06:43 PT 10.8 SECONDS (9.5-12.5) 01/04/21 00:50 INR 0.94 01/04/21 00:50 Sodium 140 mmol/L (136-145) 01/05/21 05:39 Potassium 3.9 mmol/L (3.5-5.1) 01/05/21 05:39 BUN 17 mg/dL (7-18) 01/05/21 05:39 Creatinine 0.60 mg/dL (0.55-1.3) 01/05/21 05:39 Glucose 137 mg/dL (74-106) H 01/05/21 05:39 Phosphorus 5.0 mg/dL (2.5-4.9) H 01/05/21 05:39 Magnesium 2.2 mg/dL (1.8-2.4) 01/05/21 05:39 Total Bilirubin 0.3 mg/dL (0.2-1.0) 01/05/21 05:39 AST 15 U/L (15-37) 01/05/21 05:39 ALT 26 U/L (12-78) 01/05/21 05:39 Alkaline Phosphatase 73 U/L (45-117) 01/05/21 05:39 Troponin I < 0.02 ng/mL (0.0-0.045) 01/04/21 20:50 Triglycerides 154 mg/dL (<150) H 01/04/21 04:55 Cholesterol 222 mg/dL (<200) H 01/04/21 04:55 HDL Cholesterol 47 mg/dL (40-60) 01/04/21 04:55 Cholesterol/HDL Ratio 4.72 01/04/21 04:55 Home Medications: Calcium Carbonate [Calcium] 1,500 mg PO DAILY 07/15/18 Levothyroxine Sodium [Synthroid] 150 mcg PO DAILY 6PM 07/15/18 calcitrioL [Rocaltrol] 2 cap PO DAILY 07/15/18 Rosuvastatin [Crestor] 10 mg PO BEDTIME #30 tab 01/05/21 predniSONE [Deltasone] 20 mg PO BID #7 tab 01/05/21 New Medications: Rosuvastatin [Crestor] 10 mg PO BEDTIME #30 tab predniSONE [Deltasone] 20 mg PO BID #7 tab Physician Discharge Instructions: OK TO DC IV AND DC HOME FOLLOW-UP WITH PRIMARY CARE PROVIDER IN 1-2 WEEKS FOLLOW-UP WITH CARDIOLOGY IN 1-2 WEEKS RETURN TO THE ER IF symptoms worsens CALL or TEXT DR. ROCHA AT [phone] IF ANY QUESTIONS REGARDING HOSPITAL STAY. PLEASE CALL THE FLOOR AT [phone] IF ANY MEDICATION OR NURSING QUESTIONS. Diet: AHA Activity: Fall precautions Followup: Dixon Segovia MD [ACTIVE - CAN ADMIT] - Unknown,U [Primary Care Provider] - Time spent managing pt's care (in minutes): 35
== END 2021-01-05 15:42 | disposition home or self-care (01) | DRG 313 ==
LOC: ER 00:12 → ERHOLD 04:25 → OBSVTOIN 07:59 → 2ND 19:25
PROVIDERS: ADMIT Hospitalist; ATTEND Hospitalist
DX: R07.9 Chest pain, unspecified (principal); E78.5 Hyperlipidemia, unspecified; I10 Essential (primary) hypertension; E03.9 Hypothyroidism, unspecified; Z79.890 Hormone replacement therapy; Z79.899 Other long term (current) drug therapy; Z85.9 Personal history of malignant neoplasm, unspecified; Z90.49 Acquired absence of other specified parts of digestive tract; Z86.16 Personal history of COVID-19; Z79.52 Long term (current) use of systemic steroids; Z20.822 Contact with and (suspected) exposure to COVID-19
CPT/HCPCS: 36415; 71045; 80048; 80053; 80061; 80076; 81003; 81025; 82310; 83036; 83735; 83880; 84100; 84484; 85025; 85610; 93005; 94760; 99285; G0378; J1650; J2920; U0003

== ENCOUNTER 2021-01-08 14:00 | Emergency (ER) | payer SELFPAY ==
--- OUTSIDE RECORDS SUMMARY | 2021-01-08 14:03 | XMS REPORT | Continuity of Care Document ---
:1975 Author Organization [facility] t Address [address] [place] [address] Care Team Providers Name Role Phone Doctor Unassigned, [place] Attending Clinician Unavailable Problems This patient has no known problems. Allergies, Adverse Reactions, Alerts This patient has no known allergies or adverse reactions. Medications This patient has no known medications. Procedures This patient has no known procedures. Encounters Start End Encounter Admission Attending Care Care Encounter Source Date/Time Date/Time Type Type Clinicians Facility Department ID Orders Doctor TASNEEM [id number] 00:00:00 00:00:00 Only Unassigned, ETHAN [id number] [place] [facility] [id number] Results This patient has no known results.
[2021-01-08 15:28] LABS: Absolute Lymphocytes (CBC) 2.3 K/uL (0.7-4.9); Basophils % 0.4 % (0-1.3); Hematocrit 42.8 % (36.0-45.0); Lymphocytes % 29.7 % (15.3-44.8); RBC Red Blood Cell Count 5.07 M/uL (3.86-4.86)
[2021-01-08 15:46] LABS: Magnesium 2.3 mg/dL (1.8-2.4); Potassium 3.4 mmol/L (3.5-5.1)
[2021-01-08 17:39] LABS: SARS-COV-2 RT PCR NEGATIVE (NEGATIVE)
--- NOTE | 2021-01-08 18:04 | EDPHYS ---
Physician Documentation [facility] Name: Grace Holder Age: 45 yrs Sex: Female : 1975 Arrival Date: 01/08/2021 Time: 14:03 Bed 14 Private MD: ED Physician Derrick French HPI: 01/08 14:49 This 45 yrs old Female presents to ER via Ambulatory with complaints of Pain pm1 All Over. 14:49 Muscle cramping all over her body. Areas of increased cramping is bilateral arms and pm1 all over her back. Patient has had this multiple times in the past and reports it is usually due to low potassium and/or calcium levels. Onset: The symptoms/episode began/occurred today. Severity of symptoms: in the emergency department the symptoms are unchanged. The patient has experienced similar episodes in the past, multiple times. The patient has been recently been admitted at [facility], for apparently unrelated complaints, chest pain. Patient does not have any chest pain, shortness of breath, or chest pain equivalents . Historical: - Allergies: 14:22 No Known Allergies; ll1 - PMHx: 14:22 Hypothyroidism; THYROID CANCER; ll1 - PSHx: 14:22 ; thyroid sx; prarthyroid; Cholecystectomy; ll1 - Immunization history:: Flu vaccine is not up to date. - Social history:: Smoking status: Patient denies any tobacco usage or history of. ROS: 14:49 Constitutional: Negative for fever, chills, and weight loss, Eyes: Negative for injury, pm1 pain, redness, and discharge, ENT: Negative for injury, pain, and discharge, Neck: Negative for injury, pain, and swelling, Cardiovascular: Negative for chest pain, palpitations, and edema, Respiratory: Negative for shortness of breath, cough, wheezing, and pleuritic chest pain, Abdomen/GI: Negative for abdominal pain, nausea, vomiting, diarrhea, and constipation, MS/Extremity: Negative for injury and deformity, Skin: Negative for injury, rash, and discoloration, Neuro: Negative for headache, weakness, numbness, tingling, and seizure. 14:49 Back: Positive for muscle cramps all over, Negative for injury or acute deformity, decreased range of motion. Exam: 14:49 Constitutional: This is a well developed, well nourished patient who is awake, alert, pm1 and in no acute distress. Head/Face: Normocephalic, atraumatic. Neck: Trachea midline, no thyromegaly or masses palpated, and no cervical lymphadenopathy. Supple, full range of motion without nuchal rigidity, or vertebral point tenderness. No Meningismus. Chest/axilla: Normal chest wall appearance and motion. Nontender with no deformity. No lesions are appreciated. Cardiovascular: Regular rate and rhythm with a normal S1 and S2. No gallops, murmurs, or rubs. Normal PMI, no JVD. No pulse deficits. Respiratory: Lungs have equal breath sounds bilaterally, clear to auscultation and percussion. No rales, rhonchi or wheezes noted. No increased work of breathing, no retractions or nasal flaring. Abdomen/GI: Soft, non-tender, with normal bowel sounds. No distension or tympany. No guarding or rebound. No evidence of tenderness throughout. 14:49 Skin: Warm, dry with normal turgor. Normal color with no rashes, no lesions, and no evidence of cellulitis. 14:49 Back: vertebral tenderness, is not appreciated, muscle spasm, is appreciated in the left trapezius and right trapezius. 14:49 Musculoskeletal/extremity: Extremities: all appear grossly normal, with no appreciated pain with palpation, ROM: no acute changes, Circulation is intact in all extremities. Sensation intact. 14:49 Neuro: Exam negative for acute changes, Orientation: is normal, Mentation: is normal, Motor: is normal, moves all fours. Vital Signs: 14:20 BP 101 / 90; Pulse 88; Resp 17; Temp 98.7; Pulse Ox 100% ; Weight 72.57 kg; Height 5 ll1 ft. 2 in. (157.48 cm); Pain 8/10; 14:38 BP 119 / 79; Pulse 85; Resp 18; Pulse Ox 97% on R/A; vg1 15:00 BP 114 / 79; Pulse 87; Resp 16; Pulse Ox 100% on R/A; vg1 16:00 BP 99 / 65; Pulse 65; Resp 16; Pulse Ox 99% on R/A; vg1 17:20 BP 106 / 73; Pulse 74; Resp 14; Pulse Ox 100% on R/A; vg1 18:23 BP 111 / 77; Pulse 72; Resp 14; Pulse Ox 98% on R/A; vg1 14:20 Body Mass Index 29.26 (72.57 kg, 157.48 cm) ll1 MDM: 14:24 Patient medically screened. pm1 18:01 Data reviewed: vital signs. Data interpreted: Pulse oximetry: on room air is 100 %. pm1 Interpretation: normal. Counseling: I had a detailed discussion with the patient and/or guardian regarding: the historical points, exam findings, and any diagnostic results supporting the discharge/admit diagnosis, lab results, the need for outpatient follow up, to return to the emergency department if symptoms worsen or persist or if there are any questions or concerns that arise at home. 01/08 14:35 Order name: CBC with Diff pm1 01/08 14:35 Order name: BMP pm1 01/08 14:35 Order name: Magnesium pm1 01/08 14:36 Order name: CBC with Automated Diff; Complete Time: 15:45 EDMS 01/08 14:36 Order name: Basic Metabolic Panel; Complete Time: 15:54 EDMS 01/08 14:36 Order name: Magnesium; Complete Time: 15:54 EDMS 01/08 16:00 Order name: Flu pm1 01/08 16:00 Order name: Strep pm1 01/08 16:00 Order name: COVID-19 : Document "Date of Symptom Onset" if Symptomatic. pm1 01/08 16:01 Order name: Group A Streptococcus Rapid Sc; Complete Time: 17:32 EDDC 01/08 17:18 Order name: Throat Culture EDDC 01/08 17:40 Order name: COVID-19/FLU A+B; Complete Time: 17:56 EDDC 01/08 14:35 Order name: IV Saline Lock; Complete Time: 15:21 pm1 01/08 16:00 Order name: Droplet/Contact Precautions; Complete Time: 16:10 pm1 01/08 16:00 Order name: Labs collected and sent; Complete Time: 16:10 pm1 01/08 16:00 Order name: O2 Per Protocol; Complete Time: 16:10 pm1 Administered Medications: 18:08 Drug: Potassium Chloride 40 mEq Route: PO; vg1 18:22 Follow up: Response: No adverse reaction vg1 Disposition: 18:54 Co-signature as Attending Physician, Derrick French MD. rn Disposition: 01/08/21 18:04 Discharged to Home. Impression: Other muscle spasm. - Condition is Stable. - Discharge Instructions: Muscle Cramps and Spasms, Heat Therapy. - Medication Reconciliation Form, Thank You Letter, Antibiotic Education, Prescription Opioid Use form. - Follow up: Emergency Department; When: As needed; Reason: Worsening of condition. Follow up: Private Physician; When: 2 - 3 days; Reason: Recheck today's complaints, Continuance of care, Re-evaluation by your physician. - Problem is new. - Symptoms have improved. Signatures: Dispatcher [employer] EDMS Derrick French MD MD rn Abel Hernández, VICE PRESIDENT OF NEWS VICE PRESIDENT OF NEWS pm1 Genoveva Chavez RN RN vg1 Mary Pino RN RN ll1 Corrections: (The following items were deleted from the chart) 16:52 16:01 Influenza Screen (A ordered. EDDC EDMS 16:52 16:01 CORONAVIRUS ordered. EDDC EDMS 18:23 18:04 01/08/2021 18:04 Discharged to Home. Impression: Other muscle spasm. Condition is vg1 Stable. Forms are Medication Reconciliation Form, Thank You Letter, Antibiotic Education, Prescription Opioid Use. Follow up: Emergency Department; When: As needed; Reason: Worsening of condition. Follow up: Private Physician; When: 2 - 3 days; Reason: Recheck today's complaints, Continuance of care, Re-evaluation by your physician. Problem is new. Symptoms have improved. pm1
--- NOTE | 2021-01-08 18:04 | ER ---
Nurse's Notes [facility] Name: Grace Holder Age: 45 yrs Sex: Female : 1975 Arrival Date: 01/08/2021 Time: 14:03 Bed 14 Private MD: Diagnosis: Other muscle spasm Presentation: 01/08 14:20 Chief complaint: Patient states: Cramping all over today. States her potassium and ll1 calcium levels are usually off when this happens. Coronavirus screen: Client denies travel out of the [place] in the last 14 days. At this time, the client does not indicate any symptoms associated with coronavirus-19. Ebola Screen: Patient denies travel to an Ebola-affected area in the 21 days before illness onset. Initial Sepsis Screen: Does the patient meet any 2 criteria? No. Patient's initial sepsis screen is negative. Does the patient have a suspected source of infection? No. Patient's initial sepsis screen is negative. Risk Assessment: Do you want to hurt yourself or someone else? Patient reports no desire to harm self or others. Onset of symptoms was January 08, 2021. 14:20 Method Of Arrival: Ambulatory ll1 14:20 Acuity: IRVIN 3 ll1 Historical: - Allergies: 14:22 No Known Allergies; ll1 - PMHx: 14:22 Hypothyroidism; THYROID CANCER; ll1 - PSHx: 14:22 ; thyroid sx; prarthyroid; Cholecystectomy; ll1 - Immunization history:: Flu vaccine is not up to date. - Social history:: Smoking status: Patient denies any tobacco usage or history of. Screenin:38 Abuse screen: Denies threats or abuse. Nutritional screening: No deficits noted. vg1 Tuberculosis screening: No symptoms or risk factors identified. Fall Risk No fall in past 12 months (0 pts). No secondary diagnosis (0 pts). IV access (20 points). Ambulatory Aid- None/Bed Rest/Nurse Assist (0 pts). Gait- Normal/Bed Rest/Wheelchair (0 pts) Mental Status- Oriented to own ability (0 pts). Total Ozuna Fall Scale indicates No Risk (0-24 pts). Assessment: 14:36 General: Appears in no apparent distress. uncomfortable, Behavior is calm, cooperative. vg1 Pain: Denies pain. Quality of pain is described as crampy, GIA arms and upper back. Neuro: Level of Consciousness is awake, alert, obeys commands, Oriented to person, place, time, situation. Cardiovascular: Patient's skin is warm and dry. Respiratory: Airway is patent Respiratory effort is even, unlabored. GI: No signs and/or symptoms were reported involving the gastrointestinal system. : No signs and/or symptoms were reported regarding the genitourinary system. EENT: No signs and/or symptoms were reported regarding the EENT system. Derm: Skin is intact, is healthy with good turgor. Musculoskeletal: Circulation, motion, and sensation intact. 15:24 Reassessment: Patient appears in no apparent distress at this time. No changes from vg1 previously documented assessment. Patient and/or family updated on plan of care and expected duration. Pain level reassessed. Patient is alert, oriented x 3, equal unlabored respirations, skin warm/dry/pink. 16:27 Reassessment: Patient appears in no apparent distress at this time. Patient and/or vg1 family updated on plan of care and expected duration. Pain level reassessed. Patient is alert, oriented x 3, equal unlabored respirations, skin warm/dry/pink. 17:20 Reassessment: Patient appears in no apparent distress at this time. Patient and/or vg1 family updated on plan of care and expected duration. Pain level reassessed. Patient is alert, oriented x 3, equal unlabored respirations, skin warm/dry/pink. Vital Signs: 14:20 BP 101 / 90; Pulse 88; Resp 17; Temp 98.7; Pulse Ox 100% ; Weight 72.57 kg; Height 5 ll1 ft. 2 in. (157.48 cm); Pain 8/10; 14:38 BP 119 / 79; Pulse 85; Resp 18; Pulse Ox 97% on R/A; vg1 15:00 BP 114 / 79; Pulse 87; Resp 16; Pulse Ox 100% on R/A; vg1 16:00 BP 99 / 65; Pulse 65; Resp 16; Pulse Ox 99% on R/A; vg1 17:20 BP 106 / 73; Pulse 74; Resp 14; Pulse Ox 100% on R/A; vg1 18:23 BP 111 / 77; Pulse 72; Resp 14; Pulse Ox 98% on R/A; vg1 14:20 Body Mass Index 29.26 (72.57 kg, 157.48 cm) ll1 ED Course: 14:03 Patient arrived in ED. ds1 14:22 Triage completed. ll1 14:23 Abel Hernández NP is PHCP. pm1 14:23 Derrick French MD is Attending Physician. pm1 14:23 PHCP role handed off by Abel Hernández NP cp 14:23 Keanu Andrews PA is PHCP. cp 14:23 Arm band placed on Patient placed in an exam room, on a stretcher. ll1 14:24 Abel Hernández NP is PHCP. pm1 14:29 Genoveva Chavez RN is Primary Nurse. vg1 14:39 Patient has correct armband on for positive identification. Bed in low position. Call vg1 light in reach. Side rails up X 1. 15:23 Initial lab(s) drawn, by or, sent to lab. Inserted saline lock: 20 gauge in right vg1 antecubital area, using aseptic technique. Blood collected. 16:27 COVID swab sent to lab. Flu and/or RSV swab sent to lab. Strep swab sent to lab. vg1 18:23 No provider procedures requiring assistance completed. IV discontinued, intact, vg1 bleeding controlled, No redness/swelling at site. Pressure dressing applied. Administered Medications: 18:08 Drug: Potassium Chloride 40 mEq Route: PO; vg1 18:22 Follow up: Response: No adverse reaction vg1 Outcome: 18:04 Discharge ordered by . pm1 18:23 Discharged to home ambulatory. vg1 18:23 Condition: stable 18:23 Discharge instructions given to patient, Instructed on discharge instructions, follow up and referral plans. Demonstrated understanding of instructions, follow-up care. 18:23 Patient left the ED. vg1 Signatures: Ciarra Pham ds1 Keanu Andrews PA PA cp Marinas, Patrick, NP [employer]PERVISOR pm1 Genoveva Chavez RN RN vg1 Mary Pino RN RN 1
[2021-01-08] MEDS ORDERED: POTASSIUM CL SA 10 MEQ TAB PO ONE (18:23)
[2021-01-09 02:02] VITALS: TEMP 98.7
[2021-01-09 02:08] VITALS: BP 111/77; O2SAT 98
== END 2021-01-08 18:23 | disposition home or self-care (01) ==
LOC: ER 14:00
DX: M62.838 Other muscle spasm (principal); Z20.822 Contact with and (suspected) exposure to COVID-19; Z85.850 Personal history of malignant neoplasm of thyroid
CPT/HCPCS: 0240U; 36415; 80048; 83735; 85025; 87070; 87081; 99284

== ENCOUNTER 2022-02-20 17:34 | Emergency (ER) | payer SELFPAY ==
--- OUTSIDE RECORDS SUMMARY | 2022-02-20 17:37 | XMS REPORT | Continuity of Care Document ---
:1975 Author Organization [facility] t Address [address] [place] [address] Care Team Providers Name Role Phone Doctor Unassigned, [place] Attending Clinician Unavailable Problems This patient has no known problems. Allergies, Adverse Reactions, Alerts This patient has no known allergies or adverse reactions. Medications This patient has no known medications. Procedures This patient has no known procedures. Encounters Start End Encounter Admission Attending Care Care Encounter Source Date/Time Date/Time Type Type Clinicians Facility Department ID Orders Doctor TASNEEM [id number] 00:00:00 00:00:00 Only Unassigned, ETHAN [id number] [place] [facility] [id number] Results Test Description Test Time Test Comments Results Result Comments Source ESTROGENS, TOTAL 2022-01-03 16:54:34 Test Item Value Reference Range Interpretation Comme nts ESTROGENS, TOTAL (test code 46.2 pg/mL Reference Ranges: Adult Female Phase = 4142) Estro gens Total Pre-Menopausal: Early Follicula r 30-250 pg/mL Late Follicular 2 00-650 pg/mL Luteal Phase 50-350 pg/ mL Post-Menopausal: 5-52 pg/mL This test was developed and its performance ramón racteristicsdetermined by [facility] ([facility]). It has not beencleared or approved by the U.S. Food and Drug A dministration (FDA).The FDA has determined that such clearance or approval is not necessary. This test is used for clinic al purposes and should not beregarded as i nvestigational or for research. [facility] i s qualified toperform high complexity test ing under the Clinical LaboratoryImpro vement Amendments (CLIA). TESTING P ERFORMED AT [facility] [address] , [address], [place] [address] CLIA NO: [id number] 04:47:30 Test Item Value Reference Range Interpretation Comments TESTOSTERONE (test <12 NG/DL See_Comment NOT E: TOTAL code = 2830) TESTOSTERONE SAY SENSITIVITY IS 12 NG/DL. TO D ETERMINE NORMAL VS. SUBN ORMAL TESTOSTERONE IN CHILDREN AND WO MEN, CONSIDER TESTIN G WITH ULTRASENSITIVE TESTOSTERONE. [Automated mess age] The system which ge nerated this result tra nsmitted reference range : <=55. The reference r fuad was not used to int erpret this result as normal/abnormal . [facility] + LH [id number] 04:47:11 Test Item Value Reference Range Interpretation Comments FOLLICLE STIM HORMONE 10.0 IU/L SEE BELOW (test code = 2700) EXPECTED VALUES FOR FSH FOR FEMALES >17 YEARS MALES FE MALES >=18 YEARS 1.5-12.4 IU/L FOL LICULAR 3.5-12.5 I U/L MID-CYC LE PEAK 4.7-21.5 IU/L LUTEAL PHAS E 1.7-7.7 IU/L POSTMENOPAU BRADY 25.8-134.8 IU/L LUTEINIZING HORMONE 4.4 IU/L SEE BELOW (test code = 2776) EXPECTED VALUES FOR LH FOR FEMALES >17 YEARS MALES FEMALES >=1 8 YEARS 1.8-8.6 IU/L FOLLICULAR 2.4-12.6 IU/L MID-CYCLE P EAK 14.0-95.6 IU/L LUTEAL PHA SE 1.0-11.4 IU/L POSTMENOPAU BRADY 7.7-58.5 IU/L [id number] 04:47:11 Test Item Value Reference Range Interpretation Comments PROGESTERONE (test 0.58 NG/ML SEE BELOW code = 2790) EXPECTED VALUES FOR PROGESTERONE MALE . . . . . . . . . . . . . . . . NG/ML <0.20 FEMALE FOLLICULAR PHAS E . . . . . . . . . NG/ ML <0.90 OVULATION . . . . . . . . . . . . NG/ ML <12.00 LUTEAL PHASE . . . . . . . . . . . NG/ML 1.83-23.90 POSTMENOPAUSAL . . . . . . . . . . NG/ ML <0.[address] TRIMESTER. . . . . . . . . . . NG/ML 11.00-44.30 2ND TRIMESTER. . . . . . . . . . . NG/ ML 25.40-83.30 3RD TRIMESTER. . . . . . . . . . . NG/ ML 58.70-214.00 THYROID II PROFILE (TU,T4,FTI,TSH)2021-12-30 04:47:11 Test Item Value Reference Range Interpretation Comments T-UPTAKE (test code = 2817) 33.1 % 24.3-39.0 THYROX. BIND. CAPAC. (test code 1.0 0.8-1.3 = 67344) T4 (THYROXINE) (test code = 10.0 UG/DL 4.5-10.5 2819) CORRECTED T4 (FTI) (test code = 10.0 UG/DL 4.2-11.6 2820) TSH, THIRD GENERATION (test code 1.050 UIU/ML 0.400-4.100 = 2821) HEMOGLOBIN [id number] 02:59:01 Test Item Value Reference Range Interpretation Comments HEMOGLOBIN A1c (test 5.6 % 4.2-5.6 UNLESS OTHERWISE code = 83995) INDICATED, ALL TESTING PERFORMED [facility] PATHOLOGY [facility], [facility]. [address] [place] [address] 4 LABORATORY DIRE CTOR: Monroe KWONGIA NUMBER [id number] [facility] [place] [id number] COMPREHENSIVE METABOLIC [id number] 02:23:03 Test Item Value Reference Range Interpretation Comments GLUCOSE (test code = 97 MG/DL 70-99 2216) BUN (test code = 13 MG/DL 6-20 2207) CREATININE (test 0.73 MG/DL 0.60-1.30 code = 2214) eGFR (2020 CKD-EPI) 102 >60 (test code = 94375) ML/MIN/1.73 CALC BUN/CREAT (test 18 RATIO 6-28 code = 2235) SODIUM (test code = 141 MEQ/L 428-090 4194) POTASSIUM (test code 3.5 MEQ/L 3.5-5.4 = 222) CHLORIDE (test code 103 MEQ/L 95-107 = 2215) CARBON DIOXIDE (test 24 MEQ/L 19-31 code = 2206) CALCIUM (test code = 8.4 MG/DL 8.5-10.5 L 2208) PROTEIN, TOTAL (test 6.8 G/DL 6.1-8.3 code = 222) ALBUMIN (test code = 4.3 G/DL 3.5-5.2 2200) CALC GLOBULIN (test 2.5 G/DL 1.9-3.7 code = 2240) CALC A/G RATIO (test 1.7 RATIO 1.0-2.6 code = 2234) BILIRUBIN, TOTAL 0.3 MG/DL See_Comment [Automated message] (test code = 220) The syste m which generated this result transmit francesca reference range : <=1.2. The refe rence range was not u sed to interpret th is result as normal/abnormal . ALKALINE PHOSPHATASE 87 U/L 40-120 (test code = 220) AST (test code = 17 U/L 9-40 2217) ALT (test code = 17 U/L 5-40 2218) LIPID [id number] 02:23:03 Test Item Value Reference Range Interpretation Comments CHOLESTEROL (test 262 MG/DL <200 H code = 2210) TRIGLYCERIDES (test 129 MG/DL <150 code = 2232) HDL CHOLESTEROL (test 48 MG/DL >39 code = 2220) CALC LDL CHOL (test 188 MG/DL <100 H NOTE: C ALCULATED LDL code = 2237) IS BASED ON LUIS E-IZAGUIRRE METHOD WHICHINCLUDES ADJUSTABLE TRIGLYCERIDE:VL DL CHOLESTEROL RAT IO.THIS FACTOR VARIES B Y MEASURED TRIGLY CERIDE AND NON-HDLCHOL ESTEROL CONCENTRATIONS WITH INCREASED CALCU LATED LDL SEENIN HIGH ER TRIGLYCERIDE OR LOWER NON-HDL SPECIME NS. FOR MOREINFORMATION , SEE CLIENT ANNOUNCE MENT AT [email or web address] RISK RATIO LDL/HDL 3.92 RATIO <3.22 H (test code = 2238) INTACT [id number] 08:05:37 Test Item Value Reference Range Interpretation Comments INTACT PTH (test code = 5005) 7 PG/ML 15-65 L VITAMIN D, 25 [id number] 05:24:12 Test Item Value Reference Range Interpretation Comments VITAMIN D, 25 OH 44 NG/ML SEE BELOW NOTE: 25-H YDROXYVITAMIN D (test code = 4958) ASSAY INC LUDES 25-HYDROXYVITAM IN D2 AND D3. METHOD OLOGY IS CHEMILUMINESCEN T IMMUNOASSAY. INTERPRE TIVE RANGES PEDIATRIC (<17 YEARS) . . . . . . . . . . . NG/ML 20-100A DULT: INSUFFICIENT . . . . . . . . . . . . . . N G/ML <20 SUBOPTI MAL . . . . . . . . . . . . . . . NG/ML 20-29 OPTIMAL . . . . . . . . . . . . . . . . . NG/ML 30-100 UNLESS OTHERW ISE INDICATED, ALL TESTING PERFORMED [facility] NICAL [facility] [address] [place] [address] LABORATORY DIRE CTOR: Evelio JEFFREY. CLIA NUMBER [id number] CAP ACCREDITATION N O. [id number] THYROID II PROFILE (TU,T4,FTI,TSH)2021-10-12 04:40:00 Test Item Value Reference Range Interpretation Comments T-UPTAKE (test 30.2 % 24.3-39.0 code = 2817) THYROX. BIND. 1.1 0.8-1.3 NOT E: CAPAC. (test code THYROXINE BINDING = 51869) CAPACITY IS INV ERSELY RELATED TO T-UPTAKE,DECREA SED WITH HYPERTHYROIDISM AND LOW THYROID BINDING GLOBULIN (TBG),INCREASED IN HYPOTHYROIDISM OR WITH HIGH TBG. T4 (THYROXINE) 10.0 UG/DL 4.5-10.5 (test code = 2819) CORRECTED T4 (FTI) 9.1 UG/DL 4.2-11.6 (test code = 2820) TSH, THIRD 0.562 UIU/ML 0.400-4.100 GENERATION (test code = 2821) CBC W/AUTO DIFF WITH [id number] 03:18:31 Test Item Value Reference Range Interpretation Comments WBC (test code = 6.8 K/UL 3.5-11.0 1001) RBC (test code = 4.55 M/UL 3.80-5.40 1002) HEMOGLOBIN (test code 12.8 G/DL 11.5-15.5 = 1003) HEMATOCRIT (test code 37.0 % 34.0-45.0 = 1004) MCV (test code = 81.3 fL 80.0-99.0 1005) MCH (test code = 28.1 PG 25.0-33.0 1006) MCHC (test code = 34.6 G/DL 31.0-36.0 1007) RDW (test code = 13.0 % 11.5-15.0 1038) NEUTROPHILS (test 60.6 % NOTE: EFF ECTIVE code = 1008) 09/05/2021, REFERENCE INTER VALS AND FLAGGING FORRELATIVE (%) WBC DIFFERENTIAL WI LL BE ELIMINATED REDUNDANT TOABS OLUTE COUNTS.SEE [email or web address] _upda te LYMPHOCYTES (test 26.5 % code = 1010) MONOCYTES (test code 7.5 % = 1011) EOSINOPHILS (test 4.4 % code = 1012) BASOPHILS (test code 0.6 % = 1013) IMMATURE GRANYLOCYTES 0.4 % (test code = 1036) NUCLEATED RBCS (test 0.0 /100 See_Comment [Autom ated message] code = 1065) WBC'S The system [employer] h generated this result transmit francesca reference range : 0.0. The refere nce range was not u sed to interpret th is result as normal/abnormal . PLATELET COUNT (test 279 K/UL 130-400 code = 1015) ABSOLUTE NEUTROPHILS 4.14 K/UL 1.50-7.50 (test code = 1066) ABSOLUTE LYMPHOCYTES 1.81 K/UL 1.00-4.00 (test code = 1067) ABSOLUTE MONOCYTES 0.51 K/UL 0.20-1.00 (test code = 1068) ABSOLUTE EOSINOPHILS 0.30 K/UL 0.00-0.50 (test code = 1040) ABSOLUTE BASOPHILS 0.04 K/UL 0.00-0.20 (test code = 1069) ABS IMMATURE 0.03 K/UL 0.00-0.10 GRANULOCYTES (test code = 1020) ABS NUCLEATED RBCS 0.00 K/UL 0.00-0.11 (test code = 22465) COMPREHENSIVE METABOLIC [id number] 02:56:16 Test Item Value Reference Range Interpretation Comments GLUCOSE (test code = 105 MG/DL 70-99 H 2216) BUN (test code = 11 MG/DL 6-20 2207) CREATININE (test 0.68 MG/DL 0.60-1.30 EFFECTIVE code = 2214) 09/26/2021, [facility] HAS IMPLEMENTED THE NKF-ASN RECOMME NDED KD-EPI EGF R REFIT CALCULATI ON THAT DOES NOT INCLUDE A COEFFICIENT FOR RACE. FOR MORE INFORMATION, SE E ANNOUNCEMENT [email or web address] eGFR (2020 CKD-EPI) 108 >60 (test code = 43842) ML/MIN/1.73 CALC BUN/CREAT (test 16 RATIO 6-28 code = 2235) SODIUM (test code = 143 MEQ/L 758-519 0901) POTASSIUM (test code 3.6 MEQ/L 3.5-5.4 = 2227) CHLORIDE (test code 104 MEQ/L 95-107 = 221) CARBON DIOXIDE (test 26 MEQ/L 19-31 code = 2206) CALCIUM (test code = 7.6 MG/DL 8.5-10.5 L 2208) PROTEIN, TOTAL (test 6.7 G/DL 6.1-8.3 code = 2229) ALBUMIN (test code = 4.2 G/DL 3.5-5.2 2200) CALC GLOBULIN (test 2.5 G/DL 1.9-3.7 code = 2240) CALC A/G RATIO (test 1.7 RATIO 1.0-2.6 code = 2234) BILIRUBIN, TOTAL 0.4 MG/DL See_Comment [Automated message] (test code = 2207) The syste m which generated this result transmit francesca reference range : <=1.2. The refe rence range was not u sed to interpret th is result as normal/abnormal . ALKALINE PHOSPHATASE 106 U/L 40-120 (test code = 2204) AST (test code = 33 U/L 9-40 2217) ALT (test code = 73 U/L 5-40 H 2218) LIPID [id number] 02:56:16 Test Item Value Reference Range Interpretation Comments CHOLESTEROL (test 291 MG/DL <200 H code = 2210) TRIGLYCERIDES (test 173 MG/DL <150 H code = 2232) HDL CHOLESTEROL (test 61 MG/DL >39 code = 2220) CALC LDL CHOL (test 195 MG/DL <100 H NOTE: C ALCULATED LDL code = 2237) IS BASED ON LUIS E-IZAGUIRRE METHOD WHICHINCLUDES ADJUSTABLE TRIGLYCERIDE:VL DL CHOLESTEROL RAT IO.THIS FACTOR VARIES B Y MEASURED TRIGLY CERIDE AND NON-HDLCHOL ESTEROL CONCENTRATIONS WITH INCREASED CALCU LATED LDL SEENIN HIGH ER TRIGLYCERIDE OR LOWER NON-HDL SPECIME NS. FOR MOREINFORMATION , SEE CLIENT ANNOUNCE MENT AT [email or web address] RISK RATIO LDL/HDL 3.20 RATIO <3.22 (test code = 2238)
[2022-02-20 18:00] LABS: Urine Blood Trace-intact (Negative); Urine Glucose Negative (Negative); Urine Protein Negative (Negative); Urine pH 7.5 (5.0-7.0)
[2022-02-20] MEDS ORDERED: FAMOTIDINE 20 MG/2 ML VIAL IV ONE (18:27)
[2022-02-20] MEDS ORDERED: MAGNES/ALUMIN/SIMET 30ML UCUP ONE (18:27)
[2022-02-20] MEDS ORDERED: ONDANSETRON 4 MG/2 ML VIAL ONE (18:27)
[2022-02-20] MEDS ORDERED: LIDOCAINE VISCOUS 2% SOLN 15 ML UDC ONE (18:27)
--- NOTE | 2022-02-20 18:56 | RAD REPORT ---
EXAM DESCRIPTION: CT - Soft Tissue Neck W/Contr CLINICAL HISTORY: fb sensation Neck pain and swelling. COMPARISON: Soft Tissue Neck W/Contr dated 11/09/[address] scans are performed using dose optimization technique as appropriate and may includ e automated exposure control or mA/KV adjustment according to patient size. FINDINGS: Nasopharyngeal tissues are normal in appearance. Fossa Rosenmller are normal. Parapharyngeal fat triangles are symmetric. Tongue base structures are normal. Epiglottis and aryepiglottic folds are normal. Piriform sinuses are well aerated. No radiopaque forei gn body is seen. The vocal cords are normal in appearance. Mildly prominent lymph nodes in both jugular chains. Salivary glands are normal in appearance. Scarring is present in both lung apices. Included intracranial contents are unremarkable. Thyroidectomy. IMPRESSION: No radiopaque foreign body seen. No acute abnormality identified.
--- NOTE | 2022-02-20 19:26 | ER ---
Nurse's Notes [facility] Name: Grace Holder Age: 46 yrs Sex: Female : 1975 Arrival Date: 02/20/2022 Time: 17:35 Bed 13 Private MD: Bobbi Viera Diagnosis: Dysphagia, unspecified Presentation: 02/20 18:05 Chief complaint: Patient states: throat soreness x 2 days; had fish shrimp on Sunday; vg1 states feels like throat is 'tightening up' and 'its hard to swallow' also states "feels like something is stuck and its sharp" Denies NV. 18:05 Coronavirus screen: Client denies travel out of the [place] in the last 14 days. Ebola vg1 Screen: Patient denies exposure to infectious person. Patient denies travel to an Ebola-affected area in the 21 days before illness onset. Initial Sepsis Screen: Does the patient meet any 2 criteria? No. Patient's initial sepsis screen is negative. Does the patient have a suspected source of infection? No. Patient's initial sepsis screen is negative. Risk Assessment: Do you want to hurt yourself or someone else? Patient reports no desire to harm self or others. Onset of symptoms was February 18, 2022. 18:05 Method Of Arrival: Ambulatory vg1 18:05 Acuity: IRVIN 3 vg1 Triage Assessment: 18:05 General: Appears uncomfortable, Behavior is calm, cooperative. Pain: Complains of pain vg1 in throat Pain currently is 9 out of 10 on a pain scale. Pain began 2-3 days ago. EENT: Throat is pink with gag reflex present. Neuro: Oconnor Agitation-Sedation Scale (RASS): 0 - Alert and Calm Level of Consciousness is awake, alert, obeys commands, Oriented to person, place, time, situation. Cardiovascular: Patient's skin is warm and dry. Respiratory: Airway is patent Respiratory effort is even, unlabored. GI: No signs and/or symptoms were reported involving the gastrointestinal system. : No signs and/or symptoms were reported regarding the genitourinary system. Derm: Skin is intact, is healthy with good turgor. Musculoskeletal: Circulation, motion, and sensation intact. Historical: - Allergies: 19: No Known Allergies; vg1 - Home Meds: 19:01 calcitriol 0.5 mcg Oral cap 2 caps once daily [Active]; calcium carbonate 500 mg vg1 calcium (1,250 mg) Oral chew 1000 mg three times a day [Active]; levothyroxine 150 mcg tab 1 tab once daily [Active]; - PMHx: 19:01 Hypothyroidism; THYROID CANCER; vg1 - PSHx: 19:01 Tonsillectomy; vg1 19:01 Cholecystectomy; vg1 - Immunization history:: Client reports having NOT received the Covid vaccine. - Social history:: Smoking status: Patient denies any tobacco usage or history of. Screenin:05 Abuse screen: Denies threats or abuse. Nutritional screening: No deficits noted. vg1 Tuberculosis screening: No symptoms or risk factors identified. Fall Risk No fall in past 12 months (0 pts). No secondary diagnosis (0 pts). IV access (20 points). Ambulatory Aid- None/Bed Rest/Nurse Assist (0 pts). Gait- Normal/Bed Rest/Wheelchair (0 pts) Mental Status- Oriented to own ability (0 pts). Total Ozuna Fall Scale indicates No Risk (0-24 pts). Assessment: 18:05 Reassessment: SEE TRIAGE. vg1 19:35 Respiratory: Respiratory effort is even, unlabored, ke1 Vital Signs: 18:05 BP 121 / 85; Pulse 90; Resp 18; Temp 97.6; Pulse Ox 100% ; Weight 77.11 kg; Height 5 vg1 ft. 2 in. (157.48 cm); Pain 9/10; 19:35 BP 111 / 80; Pulse 76; Resp 18; Pulse Ox 99% on R/A; ke1 18:05 Body Mass Index 31.09 (77.11 kg, 157.48 cm) vg1 ED Course: 17:35 Patient arrived in ED. as 17:35 Bobbi Viera is Private Physician. as 17:43 Aaron Hammond PA is PHCP. ravi 17:43 Keanu Willingham MD is Attending Physician. ravi 17:46 Genoveva Chavez, RN is Primary Nurse. vg1 18:05 Arm band placed on. vg1 18:05 Patient has correct armband on for positive identification. Placed in gown. Bed in low vg1 position. Call light in reach. Side rails up X 1. 18:20 No provider procedures requiring assistance completed. Inserted saline lock: 20 gauge vg1 in left forearm, using aseptic technique. 18:49 CT Soft Tissue Neck W/contr In Process Unspecified. EDMS 19:01 Triage completed. vg1 19:25 Miles Merida MD is Referral Physician. jmm 19:35 IV discontinued. ke1 Administered Medications: 18:30 Drug: Pepcid (famotidine) 20 mg Route: IVP; Site: left forearm; vg1 19:36 Follow up: Response: Marked relief of symptoms ke1 18:35 Drug: Zofran (Ondansetron) 4 mg Route: IVP; Site: left forearm; vg1 19:36 Follow up: Response: Marked relief of symptoms ke1 18:40 Drug: GI Cocktail without - (Maalox Suspension 30 ml, Lidocaine Liquid 2 % 15 vg1 ml) Route: PO; 19:36 Follow up: Response: Marked relief of symptoms ke1 Outcome: 19:25 Discharge ordered by . jmm 19:35 Discharged to home ambulatory. ke1 19:35 Condition: good 19:35 Discharge instructions given to patient. 19:36 Patient left the ED. ke1 Signatures: Dispatcher [employer] EDMS Aaron Hammond PA PA jmm Martinez, Amelia as Garcia, Victoria, RN RN vg1 Palomo Porras RN RN ke1
--- NOTE | 2022-02-20 19:26 | EDPHYS ---
Physician Documentation [facility] Name: Grace Holder Age: 46 yrs Sex: Female : 1975 Arrival Date: 02/20/2022 Time: 17:35 Bed 13 Private MD: Bobbi Viera ED Physician Keanu Willingham HPI: 02/20 17:55 This 46 yrs old Female presents to ER via Ambulatory with complaints of Sore jmm Throat, Wheezing > 1 Year, Decreased Appetite. 17:55 The patient presents with a foreign body sensation in the throat. Onset: The jmm symptoms/episode began/occurred gradually, 2 day(s) ago. Modifying factors: The symptoms are alleviated by nothing, the symptoms are aggravated by fluids, foods, swallowing. Associated signs and symptoms: Pertinent positives: shortness of breath. This is a 46 year old female with a history of hypothyroidism, thyroid cancer that presents to the ED with complaints of fb sensation to the throat. Denies vomiting but has had some nausea. Patient states having a similar episode previously. . Historical: - Allergies: 19:01 No Known Allergies; vg1 - Home Meds: 19:01 calcitriol 0.5 mcg Oral cap 2 caps once daily [Active]; calcium carbonate 500 mg vg1 calcium (1,250 mg) Oral chew 1000 mg three times a day [Active]; levothyroxine 150 mcg tab 1 tab once daily [Active]; - PMHx: 19:01 Hypothyroidism; THYROID CANCER; vg1 - PSHx: 19:01 Tonsillectomy; vg1 19:01 Cholecystectomy; vg1 - Immunization history:: Client reports having NOT received the Covid vaccine. - Social history:: Smoking status: Patient denies any tobacco usage or history of. ROS: 17:55 Constitutional: Negative for fever, chills, and weight loss, Cardiovascular: Negative jmm for chest pain, palpitations, and edema, Respiratory: Negative for shortness of breath, cough, wheezing, and pleuritic chest pain. 17:55 ENT: Positive for foreign body sensation. 17:55 All other systems are negative. Exam: 17:55 Constitutional: This is a well developed, well nourished patient who is awake, alert, jmm and in no acute distress. Head/Face: atraumatic. Eyes: EOMI, no conjunctival erythema appreciated ENT: Moist Mucus Membranes Neck: Trachea midline, Supple Chest/axilla: Normal chest wall appearance and motion. Cardiovascular: Regular rate and rhythm. No edema appreciated Respiratory: Normal respirations, no respiratory distress appreciated Abdomen/GI: Non distended, soft Back: Normal ROM Skin: General appearance color normal MS/ Extremity: Moves all extremities, no obvious deformities appreciated, no edema noted to the lower extremities Neuro: Awake and alert Psych: Behavior is normal, Mood is normal, Patient is cooperative and pleasant Vital Signs: 18:05 BP 121 / 85; Pulse 90; Resp 18; Temp 97.6; Pulse Ox 100% ; Weight 77.11 kg; Height 5 vg1 ft. 2 in. (157.48 cm); Pain 9/10; 19:35 BP 111 / 80; Pulse 76; Resp 18; Pulse Ox 99% on R/A; ke1 18:05 Body Mass Index 31.09 (77.11 kg, 157.48 cm) vg1 MDM: 17:55 Patient medically screened. [facility] 19:22 Data reviewed: vital signs, nurses notes. Counseling: I had a detailed discussion with vahe the patient and/or guardian regarding: the historical points, exam findings, and any diagnostic results supporting the discharge/admit diagnosis, lab results, radiology results, the need for outpatient follow up, to return to the emergency department if symptoms worsen or persist or if there are any questions or concerns that arise at home. ED course: Pain relieved in the ED. CT is negative. Advised to follow up with pcp and otherwise given strict return precautions. patient understood and agrees with the plan of care. . 02/20 18:01 Order name: Urine --Ancillary (enter results) bd 02/20 18:01 Order name: Urine Dipstick-Ancillary; Complete Time: 18:01 [facility] 02/20 18:00 Order name: CT Soft Tissue Neck W/contr; Complete Time: 19:08 [facility] 02/20 18:00 Order name: Saline Lock; Complete Time: 18:41 [facility] 02/20 18:03 Order name: Misc. Order: need a green top for i stat; Complete Time: 18:41 [facility] Administered Medications: 18:30 Drug: Pepcid (famotidine) 20 mg Route: IVP; Site: left forearm; vg1 19:36 Follow up: Response: Marked relief of symptoms ke1 18:35 Drug: Zofran (Ondansetron) 4 mg Route: IVP; Site: left forearm; vg1 19:36 Follow up: Response: Marked relief of symptoms ke1 18:40 Drug: GI Cocktail without - (Maalox Suspension 30 ml, Lidocaine Liquid 2 % 15 vg1 ml) Route: PO; 19:36 Follow up: Response: Marked relief of symptoms ke1 Disposition Summary: 02/20/22 19:25 Discharge Ordered Location: Home [facility] Condition: Stable [facility] Diagnosis - Dysphagia, unspecified [facility] Followup: [facility] - With: Miles Merida MD - When: 2 - 3 days - Reason: Recheck today's complaints, Continuance of care, Re-evaluation by your physician Discharge Instructions: - Discharge Summary Sheet [facility] - Dysphagia [facility] - Upper Endoscopy, Adult [facility] Forms: - Medication Reconciliation Form [facility] - Thank You Letter [facility] - Antibiotic Education [facility] - Prescription Opioid Use [facility] Prescriptions: - Carafate 100 mg/mL Oral suspension - take 10 milliliter by ORAL route 4 times per day on an empty stomach 1 hour [facility] before meals and at bedtime; 200 milliliter; Refills: 0, Product Selection Permitted - omeprazole 40 mg Oral capsule,delayed release(DR/EC) - take 1 capsule by ORAL route once daily before a meal; 30 capsule; Refills: 0, [facility] Product Selection Permitted Signatures: Dispatcher [employer] Aaron Adams PA PA jmm Garcia, Victoria RN RN vg1 Palomo Porras RN ke1
[2022-02-20 22:24] VITALS: TEMP 97.6
[2022-02-20 22:37] VITALS: BP 111/80; O2SAT 99
--- NOTE | 2022-02-21 10:19 | EKG ---
Test Date: 2022-02-20 Test Time: 17:46:04 Top Hat Body Maker: SANDRA MEASUREMENT RESULTS: Intervals: Rate: 94 IL: 128 QRSD: 70 QT: 370 QTc: 462 [place]: P: 54 IL: 128 QRS: 74 T: 97 INTERPRETIVE STATEMENTS: Normal sinus rhythm Nonspecific T wave abnormality Prolonged QT Abnormal ECG Compared to ECG 01/03/2021 23:40:43 T-wave abnormality now present Prolonged QT interval now present Electronically Signed On 02-21-22 10:17:31 CDT by Dixon Segovia
== END 2022-02-20 19:36 | disposition home or self-care (01) ==
LOC: ER 17:34
DX: R13.10 Dysphagia, unspecified (principal); R11.0 Nausea; Z85.850 Personal history of malignant neoplasm of thyroid
CPT/HCPCS: 70491; 81003; 81025; 82565; 93005; 96374; 96375; 99283; J2405; J3490; Q9967